=== PATIENT | female | born 1950 | race Caucasian/White ===

== ENCOUNTER 2021-05-25 13:10 | Emergency (ER) | payer MEDICARE, SELFPAY ==
--- NOTE | ~2021-05-25 | XR_ITS ---
EXAMINATION: XR chest 2V DATE: 05/25/2021 14:22 INDICATION: Mid chest pain for 8 days. TECHNIQUE: Frontal and lateral views of the chest were obtained. COMPARISON: Chest single view 09/05/2003 FINDINGS: Calcified bilateral lung nodules and calcified hilar lymph nodes are consistent with old gr anulomatous disease. No pleural effusion or pneumothorax. The heart size is normal. Median sternotomy wires and mediastinal surgical clips are seen, likely from prior coronary artery bypass grafting. Th ere is mild height loss of multiple midthoracic vertebral bodies, likely chronic. IMPRESSION: 1. No acute cardiopulmonary disease. Reviewed, dictated and finalized at location B. 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
[2021-05-25 13:20] VITALS: BP 123/78; PULSE 71; RESP 20; TEMP 36.7; O2SAT 99
--- NOTE | 2021-05-25 13:20 | ED.ABDPAIN ---
HPI - Abdominal Pain General Chief Complaint: Abdominal Pain Stated Complaint: Nausea/Abdominal Time Seen by Provider: 05/25/21 13:20 Source: patient and RN notes reviewed History of Present Illness HPI narrative: Patient is a 71-year-old female who presents the urgent care with her daughter with complaints of chest tightness. Patient states that she has been taking nitro which does seem to help her symptoms. Patient also reports of intermittent nausea. Patient has had a recent ablation as well as open heart surgery in the past. Patient states that she did call her PCP and they told her to specifically go to urgent care and not the emergency room . Patient is also reporting of shortness of breath with exertion. Denies of any upper respiratory complaints. Patient has had 2 negative COVID tests in the last week. States that symptoms started 8 days ago. Denies of any vomiting. No other acute complaints. No acute distress noted. Patient and daughter aware of the plan of care. Some parts of this dictation were generated by voice recognition software and may contain typographical and/or grammatical inaccuracies. Related Data Home Medications Medication Instructions Recorded Confirmed aspirin 81 mg PO DAILY 05/25/21 05/25/21 atorvastatin 40 mg PO DAILY 05/25/21 05/25/21 chlorthalidone 25 mg PO DAILY 05/25/21 05/25/21 ezetimibe 10 mg PO DAILY 05/25/21 05/25/21 metoprolol tartrate 25 mg PO DAILY 05/25/21 05/25/21 ranolazine 1,000 mg PO Q12H 05/25/21 05/25/21 venlafaxine 150 mg PO DAILY 05/25/21 05/25/21 Allergies Allergy/AdvReac Type Severity Reaction Status Date / Time codeine Allergy Hives Verified 05/25/21 13:33 Penicillins Allergy Hives Verified 05/25/21 13:33 Review of Systems Review of Systems: CONSTITUTIONAL: Denies fever, chills, or sweats. EYES: Denies visual changes, redness, or discharge. ENT: Denies rhinorrhea, congestion, sore throat, or otalgia. CARDIOVASCULAR: Reports of circumferential chest tightness RESPIRATORY: Reports of dyspnea on exertion GASTROINTESTINAL: Reports of nausea without abdominal pain, vomiting or diarrhea GENITOURINARY: Denies dysuria or hematuria. SKIN: Denies rash or itching. MUSCULOSKELETAL: Denies back pain, joint pain, or myalgia. NEUROLOGIC: Denies headache, numbness, or weakness. All other systems reviewed are negative, except as documented in HPI. PMFSH Comments At the time of my signature, I reviewed and agree with the nursing past medical, surgical, social, and family history. There is no relevant family history pertinent to the patient complaint. Exam Narrative: GENERAL: This is a well-nourished, well-developed patient, in no apparent distress. HEAD: normocephalic, atraumatic. EYES: PERRL. Sclera clear/white. Vision is grossly intact. EARS: External ears normal NOSE: External nose normal with no obvious nasal discharge, nares without redness, no rhinorrhea. THROAT: Mucous membranes moist NECK: Neck supple CARDIOVASCULAR: Regular rate and rhythm RESPIRATORY: Clear to auscultation. Breath sounds equal bilaterally. No wheezes, rales, or rhonchi. GASTROINTESTINAL: Abdomen soft, non-tender, nondistended. Bowel sounds are active. SKIN: warm, intact with no suspicious lesions or rash, good texture and turgor. NEURO: awake, alert, and oriented to person, place and time. There were no obvious focal neurologic abnormalities. EXTREMITIES: No clubbing, cyanosis, or edema. Course Course Level of Care: Express Care Visit Vital Signs Vital signs: Vital Signs Temperature 98.0 F 05/25/21 13:20 Pulse Rate 71 05/25/21 13:20 Respiratory Rate 05/25/21 13:20 Blood Pressure 123/78 05/25/21 13:20 Pulse Oximetry 99 05/25/21 13:20 Temperature 98.0 F 05/25/21 13:20 Pulse Rate 71 05/25/21 13:20 Respiratory Rate 05/25/21 13:20 Blood Pressure 123/78 05/25/21 13:20 Pulse Oximetry 99 05/25/21 13:20 Reviewed MDM - Abdominal Pain MDM Narrative
--- NOTE | 2021-05-25 13:36 | ECG_ITS ---
Measurements Intervals [place] Rate: 63 P: 52 AK: 195 QRS: 88 QRSD: 146 T: 33 QT: 478 QTc: 491 Interpretive Statements SINUS RHYTHM RIGHT BUNDLE BRANCH BLOCK BASELINE WANDER- I, II ABNORMAL ECG Electronically Signed On 05-25-2021 16:43:59 DISC PAD [employer] by Gelacio King D.O.
== END 2021-05-25 14:32 | disposition left against medical advice (07) ==
PROVIDERS: Emergency Provider Nurse Practitioner Family; PCP Internal Medicine
DX: R07.9 Chest pain, unspecified (principal); I45.10 Unspecified right bundle-branch block; Z95.1 Presence of aortocoronary bypass graft; E78.00 Pure hypercholesterolemia, unspecified; I10 Essential (primary) hypertension; F41.9 Anxiety disorder, unspecified; F32.A Depression, unspecified
CPT/HCPCS: 71046; 93005; 99213; G0463

== ENCOUNTER 2022-08-08 15:37 | Outpatient (CLI) | payer MEDICARE, SELFPAY ==
--- NOTE | ~2022-08-08 | XR_ITS ---
EXAMINATION: XR abdomen/kub 1V DATE: 08/08/2022 15:54 INDICATION: Left lower quadrant abdominal pain. TECHNIQUE: A supine view of the abdomen on 2 radiographs was obtained. COMPARISON: Abdomen radiographs 09/05/2003, CT abdomen and pelvis 12/09/2005 FINDINGS: There are no dilated loops of bowel. There is a moderate volume of stool in the colon. Ther e are phleboliths in the pelvis and in left ovarian vein. IMPRESSION: 1. Normal bowel gas pattern. Reviewed, dictated and finalized at location A.
== END 2022-08-08 15:38 | disposition home or self-care (01) ==
PROVIDERS: PCP Internal Medicine; Visit Provider Nurse Practitioner Family
DX: R10.32 Left lower quadrant pain (principal); R19.7 Diarrhea, unspecified
CPT/HCPCS: 74018

== ENCOUNTER 2022-09-02 00:21 | Day surgery (SDC) | payer MEDICARE, SELFPAY ==
[2022-08-29 13:11] VITALS: BMI 32.5
[2022-09-02 13:21] VITALS: BP 141/81; PULSE 83; RESP 18; TEMP 36.3; O2SAT 97; BMI 32.1
--- NOTE | 2022-09-02 13:28 | PM.HPGS ---
History of Present Illness History of Present Illness Consent: Risks, benefits, and alternatives have been discussed and questions answered. Patient agrees to proceed with procedure. Chief complaint: LLQP, hx colon polyps Narrative: Kelly Farris is a 72 year old female Who has been troubled with left lower quadrant pain since March.? states pain is constant with varying degrees of intensity.? Pain will radiate across the lower abdomen. Eating tends to make it worse, especially popcorn. Only mild improvement with BM. States bowels will alternate between constipation and diarrhea.? Here lately more diarrhea than constipation.? she may have 2 or 3 bouts of diarrhea a day and no bowel movement the next day. she denies any blood in the stools , fever or weight loss. CT scan at [place] in March 2022 that revealed a moderate amount of stool throughout the large colon extending into the rectosigmoid area, significant diverticulosis but no diverticulitis. She treats constipation with miralax as needed but hasnt taken any lately. Last colonoscopy in 6 years ago with polyps, she is due for screening colonoscopy. Review of Systems Review of Systems: All systems reviewed & are unremarkable except as noted in HPI and below PMFSH Past Medical History Medical History Colon polyps Depression Diarrhea Heart disease Hyperlipidemia Left lower quadrant abdominal pain Surgical History Surgical History H/O heart bypass surgery Family History Family History Mother Diabetes mellitus Acute myocardial infarction Father Lung cancer Grandparent Acute myocardial infarction Sibling Heart disease Social History Social History Smoking status: Never smoker Alcohol intake: never Substance use: never Substance use type: does not use Living arrangements: with family Additional living arrangements comments: daughter Occupation/Education: retired Gender identity (if verbalized by the patient): Female Sexual Orientation (if Verbalized by the Patient): Straight or Heterosexual Spiritual care concerns: No Meds Home Medications and Allergies Home Medications Medication Instructions Recorded Confirmed Type atorvastatin 40 mg tablet 40 mg PO DAILY 05/25/21 09/02/22 History chlorthalidone 25 mg tablet 25 mg PO DAILY 05/25/21 09/02/22 History ezetimibe 10 mg tablet 10 mg PO DAILY 05/25/21 09/02/22 History metoprolol tartrate 25 mg tablet 25 mg PO DAILY 05/25/21 09/02/22 History venlafaxine 150 mg 150 mg PO DAILY 05/25/21 09/02/22 History capsule,extended release 24 hr cyanocobalamin (vitamin B-12) 1,500 mcg PO DAILY 08/29/22 09/02/22 History 1,500 mcg tablet,extended release levothyroxine 50 mcg tablet 50 mcg PO DAILY 08/29/22 09/02/22 History nitroglycerin 0.4 mg sublingual 0.4 mg sublingual Q5-15M PRN Chest 08/29/22 09/02/22 History tablet Pain pantoprazole 40 mg tablet,delayed 40 mg PO DAILY 08/29/22 09/02/22 History release dicyclomine 20 mg tablet See Rx Instructions .Route 09/02/22 09/02/22 Rx .COMPLEX #90 tabs Allergies Allergy/AdvReac Type Severity Reaction Status Date / Time codeine Allergy Mild Hives Verified 09/02/22 13:19 Penicillins Allergy Mild Hives Verified 09/02/22 13:19 Vital Signs Vital Signs - 24 hr 09/02/22 13:21 Temperature 36.3 C L Pulse Rate 83 Respiratory Rate 18 Blood Pressure 141/81 H Pulse Oximetry 97 Oxygen Delivery Room Air Exam Const: General: alert Orientation/consciousness: patient oriented x3 Resp: Auscultation: clear to auscultation bilaterally Cardio: Rhythm: regular rhythm GI: GI Palp: Yes Soft to palpation and No Tenderness to palpation present (GI) Neuro: General: patient oriented x3 Assessment and Plan Assessment and plan
[2022-09-02] MEDS: LACTATED RINGERS 1,000 ML 150 ML IV CONT (13:30)
--- NOTE | 2022-09-02 13:51 | WPDANESEPPF ---
Anes - Initial Pre Proc Eval Procedure: Operation Date: 09/02/22 14:30 Proposed Procedures p Colonoscopy - Duc Osorio MD Date/Time: 09/02/22 13:51 Surgeon: Duc Osorio MD Pre Op Diagnosis: LLQP, hx colon polyps Patient Data Age: 72 Gender: F Height: 1.63 m Weight: 84.8 kg Last Vital Signs Temp 97.3 F L 09/02/22 13:21 Pulse 83 09/02/22 13:21 Resp 18 09/02/22 13:21 BP 141/81 H 09/02/22 13:21 Pulse Ox 97 09/02/22 13:21 O2 Del Method Room Air 09/02/22 13:21 Allergies Allergy/AdvReac Type Severity Reaction Status Date / Time codeine Allergy Mild Hives Verified 09/02/22 13:19 Penicillins Allergy Mild Hives Verified 09/02/22 13:19 Home Medications Medication Instructions Recorded Confirmed Type atorvastatin 40 mg tablet 40 mg PO DAILY 05/25/21 09/02/22 History chlorthalidone 25 mg tablet 25 mg PO DAILY 05/25/21 09/02/22 History ezetimibe 10 mg tablet 10 mg PO DAILY 05/25/21 09/02/22 History metoprolol tartrate 25 mg tablet 25 mg PO DAILY 05/25/21 09/02/22 History venlafaxine 150 mg 150 mg PO DAILY 05/25/21 09/02/22 History capsule,extended release 24 hr cyanocobalamin (vitamin B-12) 1,500 mcg PO DAILY 08/29/22 09/02/22 History 1,500 mcg tablet,extended release levothyroxine 50 mcg tablet 50 mcg PO DAILY 08/29/22 09/02/22 History nitroglycerin 0.4 mg sublingual 0.4 mg sublingual Q5-15M PRN Chest 08/29/22 09/02/22 History tablet Pain pantoprazole 40 mg tablet,delayed 40 mg PO DAILY 08/29/22 09/02/22 History release dicyclomine 20 mg tablet See Rx Instructions .Route 09/02/22 09/02/22 Rx .COMPLEX #90 tabs Patient hx anesthesia problems: none Family hx anesthesia problems: none Results Review: All pre-operative results and documents have been reviewed as part of the pre-operative evaluation. [facility] Past Medical History Medical History Colon polyps Depression Diarrhea Heart disease Hyperlipidemia Left lower quadrant abdominal pain Surgical History Surgical History H/O heart bypass surgery Family History Family History Mother Diabetes mellitus Acute myocardial infarction Father Lung cancer Grandparent Acute myocardial infarction Sibling Heart disease Social History Social History Smoking status: Never smoker Alcohol intake: never Substance use: never Substance use type: does not use Living arrangements: with family Additional living arrangements comments: daughter Occupation/Education: retired Gender identity (if verbalized by the patient): Female Sexual Orientation (if Verbalized by the Patient): Straight or Heterosexual Spiritual care concerns: No Anes - Eval Final PreProcedure Day of Procedure 09/02/22 13:51 Patient weight: obese Heart: regular rate and rhythm Lungs: clear to auscultation Airway: Mallampati scale Neurological: alert and oriented Last oral intake: >/= 8 hours ASA classification: III Emergent: no Anesthetic plan: proceed Anesthesia type and monitoring: general GIVS and standard monitoring Results Review: All pre-operative results and documents have been reviewed as part of the pre-operative evaluation. Informed Consent: The patient's anesthetic plan and its attendant risks and benefits were discussed with the patient/family/POA. Questions were solicited and answers provided to the satisfaction of the patient/family/POA.
[2022-09-02 14:22] VITALS: BP 123/78; PULSE 73; RESP 19; O2SAT 96
[2022-09-02 14:32] VITALS: BP 124/76; PULSE 69; RESP 21; O2SAT 94
[2022-09-02 14:42] VITALS: BP 128/73; PULSE 69; RESP 19; O2SAT 99
== END 2022-09-02 15:00 | disposition home or self-care (01) ==
PROVIDERS: PCP Internal Medicine; Visit Provider Internal Medicine Gastroenterology
PROC: 0DJD8ZZ Inspection of Lower Intestinal Tract, Via Natural or Artificial Opening Endoscopic (ICD-10-PCS; CPT 45378; principal; 2022-09-02 14:30)
DX: Z12.11 Encounter for screening for malignant neoplasm of colon (principal); R19.4 Change in bowel habit; K57.30 Diverticulosis of large intestine without perforation or abscess without bleeding; R10.32 Left lower quadrant pain; Z86.010 Personal history of colon polyps; I51.9 Heart disease, unspecified; E78.5 Hyperlipidemia, unspecified; F32.A Depression, unspecified; Z95.1 Presence of aortocoronary bypass graft; E66.9 Obesity, unspecified; Z68.32 Body mass index [BMI] 32.0-32.9, adult
CPT/HCPCS: G0105; J2704; J7120

== ENCOUNTER 2022-09-06 15:21 | Emergency (ER) | payer MEDICARE, SELFPAY ==
--- NOTE | ~2022-09-06 | XR_ITS ---
EXAMINATION: XR elbow RT min 3V INDICATION: Right elbow pain TECHNIQUE: Four views of the right elbow were obtained. COMPARISON: None available FINDINGS: No fracture, dislocation, or subluxation. The bones, soft tissues, and joint spaces are nor mal. IMPRESSION: 1. No acute osseous abnormality. Reviewed, dictated and finalized at location L.
[2022-09-06 15:30] VITALS: BP 125/69; PULSE 81; RESP 16; TEMP 36.7; O2SAT 97
--- NOTE | 2022-09-06 15:51 | ED.UPPEXIN ---
HPI - Extremity Injury (Upper) General Chief Complaint: Extremity Injury, Upper Stated Complaint: Fall Injury/Right Arm Time Seen by Provider: 09/06/22 15:22 Source: patient and RN notes reviewed History of Present Illness HPI narrative: Patient is a 72-year-old female who presents to urgent care with complaints of right elbow pain after tripping over a dog gate today. Patient states it happened approximately 1 hour ago. Denies any other injuries, loss of consciousness or hitting her head. No acute distress noted. Patient aware of the plan of care. Some parts of this dictation were generated by voice recognition software and may contain typographical and/or grammatical inaccuracies. Related Data Home Medications Medication Instructions Recorded Confirmed atorvastatin 40 mg tablet 40 mg PO DAILY 05/25/21 09/02/22 chlorthalidone 25 mg tablet 25 mg PO DAILY 05/25/21 09/02/22 ezetimibe 10 mg tablet 10 mg PO DAILY 05/25/21 09/02/22 metoprolol tartrate 25 mg tablet 25 mg PO DAILY 05/25/21 09/02/22 venlafaxine 150 mg 150 mg PO DAILY 05/25/21 09/02/22 capsule,extended release 24 hr cyanocobalamin (vitamin B-12) 1,500 mcg PO DAILY 08/29/22 09/02/22 1,500 mcg tablet,extended release levothyroxine 50 mcg tablet 50 mcg PO DAILY 08/29/22 09/02/22 nitroglycerin 0.4 mg sublingual 0.4 mg sublingual Q5-15M PRN Chest 08/29/22 09/02/22 tablet Pain pantoprazole 40 mg tablet,delayed 40 mg PO DAILY 08/29/22 09/02/22 release Allergies Allergy/AdvReac Type Severity Reaction Status Date / Time codeine Allergy Mild Hives Verified 09/02/22 13:19 Penicillins Allergy Mild Hives Verified 09/02/22 13:19 Review of Systems Review of Systems: CONSTITUTIONAL: Denies fever, chills, or sweats. EYES: Denies visual changes, redness, or discharge. ENT: Denies rhinorrhea, congestion, sore throat, or otalgia. CARDIOVASCULAR: Denies chest pain, palpitations, or edema. RESPIRATORY: Denies cough or dyspnea. GASTROINTESTINAL: Denies abdominal pain, nausea, vomiting, or diarrhea. GENITOURINARY: Denies dysuria or hematuria. SKIN: Denies rash or itching. MUSCULOSKELETAL: Reports of right elbow pain NEUROLOGIC: Denies headache, numbness, or weakness. All other systems reviewed are negative, except as documented in HPI. [facility] Past Medical History Medical History Colon polyps Depression Diarrhea Heart disease Hyperlipidemia Left lower quadrant abdominal pain Surgical History Surgical History H/O heart bypass surgery Family History Family History Mother Diabetes mellitus Acute myocardial infarction Father Lung cancer Grandparent Acute myocardial infarction Sibling Heart disease Social History Social History Smoking status: Never smoker Alcohol intake: never Substance use: never Substance use type: does not use Living arrangements: with family Additional living arrangements comments: daughter Occupation/Education: retired Gender identity (if verbalized by the patient): Female Sexual Orientation (if Verbalized by the Patient): Straight or Heterosexual Spiritual care concerns: No Comments At the time of my signature, I reviewed and agree with the nursing past medical, surgical, social, and family history. There is no relevant family history pertinent to the patient complaint. Exam Narrative: GENERAL: This is a well-nourished, well-developed patient, in no apparent distress. HEAD: normocephalic, atraumatic. EYES: PERRL. Sclera clear/white. Vision is grossly intact. EARS: External ears normal NOSE: External nose normal with no obvious nasal discharge, nares without redness, no rhinorrhea. THROAT: Mucous membranes moist NECK: Neck supple SKIN: warm, intact with no suspicious lesions or rash, good textu
== END 2022-09-06 16:04 | disposition home or self-care (01) ==
PROVIDERS: Emergency Provider Nurse Practitioner Family; PCP Internal Medicine
DX: M25.521 Pain in right elbow (principal); E78.5 Hyperlipidemia, unspecified; F32.A Depression, unspecified; Z95.1 Presence of aortocoronary bypass graft
CPT/HCPCS: 73080; 99213; G0463

== ENCOUNTER 2023-02-06 12:30 | Emergency (ER) | payer MEDICARE, SELFPAY ==
[2023-02-06 12:38] VITALS: BP 116/74; PULSE 86; RESP 20; TEMP 36.3; O2SAT 96
[2023-02-06 12:47] VITALS: BP 116/74; PULSE 86; RESP 20; TEMP 36.3; O2SAT 96
--- NOTE | 2023-02-06 12:59 | ED.SKABFB ---
HPI - Skin/Abscess/Foreign Bdy General Chief complaint: Skin/Abscess/Foreign Body Stated complaint: poison ravi/sumac Time Seen by Provider: 02/06/23 13:00 Source: patient, RN notes reviewed and old records reviewed Mode of arrival: ambulatory Limitations: no limitations History of Present Illness HPI narrative: 72-year-old female presents to the [facility] with complaints of a rash. Had been clearing brush for her granddaughter's wedding at house, developed this rash on Monday Related Data Home Medications Medication Instructions Recorded Confirmed chlorthalidone 25 mg tablet 25 mg PO DAILY 05/25/21 02/06/23 ezetimibe 10 mg tablet 10 mg PO DAILY 05/25/21 02/06/23 metoprolol tartrate 25 mg tablet 25 mg PO DAILY 05/25/21 02/06/23 venlafaxine 150 mg 150 mg PO DAILY 05/25/21 02/06/23 capsule,extended release 24 hr levothyroxine 50 mcg tablet 50 mcg PO DAILY 08/29/22 02/06/23 nitroglycerin 0.4 mg sublingual 0.4 mg sublingual Q5-15M PRN Chest 08/29/22 02/06/23 tablet Pain pantoprazole 40 mg tablet,delayed 40 mg PO DAILY 08/29/22 02/06/23 release atorvastatin 80 mg tablet 80 mg PO DAILY 02/06/23 02/06/23 cholecalciferol (vitamin D3) 1,250 1,250 mcg PO WEEKLY 02/06/23 02/06/23 mcg (50,000 unit) capsule cyanocobalamin (vitamin B-12) 1,000 mcg PO DAILY 02/06/23 02/06/23 1,000 mcg tablet cyanocobalamin (vitamin B-12) 500 500 mcg PO DAILY 02/06/23 02/06/23 mcg tablet dicyclomine 20 mg tablet 20 mg PO TID 02/06/23 02/06/23 Allergies Allergy/AdvReac Type Severity Reaction Status Date / Time codeine Allergy Mild Hives Verified 02/06/23 12:41 Penicillins Allergy Mild Hives Verified 02/06/23 12:41 Review of Systems Review of Systems: All systems reviewed & are unremarkable except as noted in HPI and below Constitutional: Constitutional: Reports no additional constitutional complaints Eyes: Eyes: Reports no additional eye complaints ENT: Reports system reviewed and no additional complaints, except as documented Cardiovascular: Cardiovascular: Reports no additional cardiovascular complaints, Denies chest pain and Denies dyspnea Respiratory: Respiratory: Reports no additional respiratory complaints, Denies chest congestion, Denies cough and Denies dyspnea Gastrointestinal: Gastrointestinal: Reports no additional gastrointestinal complaints, Denies abdominal pain, Denies nausea and Denies vomiting Musculoskeletal: Musculoskeletal: Reports no additional musculoskeletal complaints Integumentary/Breasts: Skin/Breast: Reports as per HPI Neurologic: Reports system reviewed and no additional complaints, except as documented Psychiatric: Psychiatric: Reports no additional psychiatric complaints Allergic/Immunologic: Allergic/Immunologic: Reports no additional allergic/immunologic complaints [facility] Past Medical History Medical History Colon polyps Depression Diarrhea Heart disease Hyperlipidemia Left lower quadrant abdominal pain Surgical History Surgical History H/O heart bypass surgery Family History Family History Mother Diabetes mellitus Acute myocardial infarction Father Lung cancer Grandparent Acute myocardial infarction Sibling Heart disease Social History Social History Smoking status: Never smoker Alcohol intake: never Substance use: never Substance use type: does not use Living arrangements: with family Additional living arrangements comments: daughter Occupation/Education: retired Gender identity (if verbalized by the patient): Female Sexual Orientation (if Verbalized by the Patient): Straight or Heterosexual Spiritual care concerns: No Comments At the time of my signature, I reviewed and agree with the nursing past medical, surgical, social, and family
== END 2023-02-06 13:10 | disposition home or self-care (01) ==
PROVIDERS: Emergency Provider Nurse Practitioner
DX: L23.7 Allergic contact dermatitis due to plants, except food (principal); E78.5 Hyperlipidemia, unspecified; Z79.899 Other long term (current) drug therapy
CPT/HCPCS: 99213; G0463

== ENCOUNTER 2023-09-06 16:01 | Outpatient (CLI) | payer MEDICARE, SELFPAY ==
--- NOTE | ~2023-09-06 | CT_ITS ---
EXAMINATION: CT abdomen pelvis w con DATE: 09/06/2023 16:23 INDICATION: Abdominal pain TECHNIQUE: Computed tomography (CT) of the abdomen and pelvis was performed with 100 cc Omnipaque 350 intravenous contrast. The dose-length product was 1087.97 mGy-cm. Automated exposure control and ite rative reconstruction technique were employed. COMPARISON: CT dated 12/09/2005. FINDINGS: There is dependent atelectasis. Heart size is normal. Calcified granuloma right lower lobe. Fatty infiltration of the liver. Status post cholecystectomy with expected prominence of the bile du cts. There are calcified granulomas of the spleen. The pancreas, adrenal glands and kidneys are unrem arkable. Nonobstructive bowel gas pattern. Colonic diverticulosis. Minimal stranding surrounding the sigmoid colon. Cannot exclude mild acute diverticulitis. Normal appendix. No free air or free fluid. No abscess. IMPRESSION: 1. Colonic diverticulosis with mild stranding surrounding the sigmoid colon, suspicious for diverticu litis. Reviewed, dictated and finalized at location B. IMPRESSION: 1. Colonic diverticulosis with mild stranding surrounding the sigmoid colon, valencia spicious for diverticulitis.
[2023-09-06 16:17] LABS: Estimated Glomerular Filt Rate > 60
== END 2023-09-06 16:02 | disposition home or self-care (01) ==
LOC: ANHIMG 16:02
PROVIDERS: Visit Provider Internal Medicine
DX: K57.30 Diverticulosis of large intestine without perforation or abscess without bleeding (principal)
CPT/HCPCS: 74177; Q9967

== ENCOUNTER 2024-07-29 14:14 | Outpatient (CLI) | payer MEDICARE, SELFPAY ==
[2024-07-29 14:27] LABS: Basophils Absolute Auto 0.1 K/mm3 (0.0-0.1); Basophils Percent Auto 1.1 % (0.2-1.2); Eosinophils Absolute Auto 0.1 K/mm3 (0-0.3); Eosinophils Percent Auto 1.6 % (0-4.4); Hemoglobin 15.4 g/dL (12.0-15.0); Immature Granulocyte Absolute 0.02 K/mm3 (0.00-0.031); Immature Granulocyte Percent A 0.2 % (0-0.5); Lymphocytes Absolute Auto 2.72 K/mm3 (0.9-3.2); Lymphocytes Percent Auto 32.7 % (18.3-44.2); Mean Corpuscular HGB Conc 34.2 g/dl (32-36); Mean Corpuscular Volume 87.7 fl (80-100); Mean Platelet Volume 9.2 fl (7.4-10.4); Monocytes Absolute Auto 0.5 K/mm3 (0.1-0.6); Monocytes Percent Auto 6.5 % (2.6-8.5); Neutrophils Absolute Auto 4.8 K/mm3 (1.3-6.7); Neutrophils Percent Auto 57.9 % (45.5-73.1); Platelet Count Result 361 k/mm3 (150-375); Red Blood Count 5.13 M/mm3 (4.2-5.4); Red Cell Distribution Width 13.4 % (11.5-14.5); White Blood Count 8.3 K/mm3 (4.5-10.0)
[2024-07-29 16:47] LABS: Alanine Aminotransferase 27 U/L (6-35); Albumin Level 4.7 g/dL (3.5-5.1); Alkaline Phosphatase 129 U/L (38-126); Anion Gap 10 mmol/L (4-12); Aspartate Amino Transferase 48 U/L (14-36); Bilirubin,Total 2.1 mg/dL (0.2-1.3); Blood Urea Nitrogen 11 mg/dL (7-17); CRP < 0.5 mg/dL (<1.0); Calcium 9.8 mg/dL (8.4-10.2); Carbon Dioxide 32 mmol/L (22-30); Chloride 98 mmol/L (98-107); Estimated Glomerular Filt Rate > 60; Glucose 107 mg/dL (65-110); Potassium 3.1 mmol/L (3.4-5.0); Sodium 140 mmol/L (137-145)
--- OUTSIDE RECORDS SUMMARY | 2024-07-29 16:50 | XMS_ITS | Continuity of Care Document ---
Author Organization 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 Plasma Arc Name Role Phone Miguel A FRANCO, Tony Unavailable Unavailable Allergies, Adverse Reactions, Alerts Substance Reaction Status Criticality Penicillins hives(severe) Active No Information codeine hives(severe) Active No Information Penicillins Active No Information codeine Active No Information Medications Medication Instructions Dosage Effective Dates (start - stop) Status Comments venlafaxine ER 150 mg capsule,extended release 24 hr take 1 Capsule by ORAL route every day morning 150 MG - Active hydrochlorothiazide 25 mg tablet take 1 tablet by oral route every day 25 MG - Active Klor-Con 10 mEq tablet,extended release take 1 Tablet by ORAL route every day with food 10 MEQ - Active Vitamin D3 2,000 unit tablet take 1 by Oral route every day 1 - Active lisinopril 10 mg tablet take 1 tablet by oral route every day 10 MG - Active Lipitor 10 mg tablet take 1 tablet by oral route every day 10 MG - Active Procedures Procedure Date Payment Collected Sacroiliac Joint Injection _ASC 013 Sciatic/Piriformis Nerve Inj Sacroiliac Joint, Arthrography/Anestheti c, W/ Fluoro Sciatic/Piriformis Nerve Inj Payment Collected Sacroiliac Joint Injection _ASC 013 Sciatic/Piriformis Nerve Inj Sacroiliac Joint, Arthrography/Anestheti c, W/ Fluoro Sciatic/Piriformis Nerve Inj Follow-up, Detailed L/S First Level Transforaminal, (Fluoro Inc) L/S Add'l Level Transforaminal (Fluoro I nc) L/S First Level Transforaminal, ([employer]oro [employer].) L/S Add'l Level Transforaminal (Flouro I nc) Sacroiliac Joint Injection _ASC 013 Sciatic/Piriformis Nerve Inj Sacroiliac Joint, Arthrography/Anestheti c, W/ Fluoro Sciatic/Piriformis Nerve Inj Office/outpatient visit,est, mod 2012 Payment Collected L/S First Level Transforaminal, ([employer]) L/S Add'l Level Transforaminal (Fluoro I nc) L/S First Level Transforaminal, ([employer].) L/S Add'l Level Transforaminal (Flouro I nc) L/S First Level Transforaminal, ([employer]) L/S Add'l Level Transforaminal (Fluoro I nc) L/S First Level Transforaminal, ([employer].) L/S Add'l Level Transforaminal (Flouro I nc) Drug screen, qual, single class 013 Follow-up, Detailed Advance Directives Directive Yes / No Effective Date File Name No Information Encounters Encounter Description Practice Location Reason(s) For Visit Diagnoses Date Provider Providers Copied on Encounter [facility], [address] [facility] [address], [place], [place], [id number], [place] tel:[phone] [facility] No Information 4 Miguel A Jimenez. [address] [facility], [address], [place], [place], [address] . tel: [phone] [facility], [address] [facility] [address], [place], [place], [address], [place] tel:[phone] [facility] Office No Information 3 Miguel A Jimenez. [address] [place] [address] [address], [place], [place], [address] . tel: [phone] Referring Provider: Tony Hernández, [address] [place] [address] [address], [place], [place], [address]. tel:[phone] [facility], [address] [place] [address] 100, [place], [place], [address], [place] tel:[phone] [facility] SACROILIITIS; Sacroiliac PainLumbar Thoracic Radicular Pain 3 Miguel A Jimenez. [address] [place] [address], [facility] [address], [place], [place], [address] . tel: [phone] Referring Provider: Tony Hernández, [address] [place] [address] [address], [place], [place], [address]. tel:[phone] [facility], [address] [place] [address], [place], [address], [place] tel:[phone] [facility] Office No Information 3 Miguel A Jimenez. [address] [place] [address] [address], [place], [place], [address] . tel: [phone] Referring Provider: Tony Hernández, [address] [place] [address] [address], [place], [address]. tel:[phone] [facility], [address] [place] [address] 200, [place], [address], [place] tel:[phone] [facility] Office No Information 3 Miguel A Jimenez. [address] [place] [address] [address], [place], [place], [address] . tel: [phone] Referring Provider: Tony Hernández, [address] [place] [address] [address], [place], [address]. tel:[phone] [facility], [address] [place] [address], [address], [place] tel:[phone] [facility] SACROILIITIS; Sacroiliac PainLumbosacral Thoracic Radicular Pain, NOS Oct-0 2-201 3 Miguel A Jimenez. [address] [place] [address] 200, [place], [place], [address] . tel: [phone] Referring Provider: Tony Hernández, [address] [place] [address] 200, [place], [place], [address]. tel:[phone] [facility], [address] [place] [address], [address], [place] tel:[phone] [facility] Office No Information Oct-0 2-201 3 Miguel A Jimenez. [address] [place] [address] 200, [place], [place], [address] . tel: [phone] Referring Provider: Tony Hernández, [address] [place] [address] 200, [place], [place], [address]. tel:[phone] Follow-up, Detailed [facility], [address] [place] [address] 200, [place], [address], [place] tel:[phone] [facility] Office back pain (chief complaint) left leg pain (chief complaint) SACROILIITIS; Sacroiliac PainLumbosacral Thoracic Radicular Pain, NOS Sep-2 7-201 3 Miguel A Jimenez. [address] [place] [address] [address], [place], [address] . tel: [phone] Referring Provider: Tony Hernández, [address] [place] [address] [address], [place], [place], [address]. tel:[phone] [facility], [address] [place] [address] 100, [place], [address], [place] tel:[phone] [facility] Lumbosacral Thoracic Radicular Pain, NOS Sep-1 2-201 3 Miguel A Jimenez. [address] [place] [address] 200, [place], [place], [address] . tel: [phone] Referring Provider: Tony Hernández, [address] [place] [address] [address], [place], [place], [address]. tel:[phone] [facility], [address] [place] [address] 200, [place], [address], [place] tel:[phone] [facility] Office No Information 3 Miguel A Jimenez. [address] [place] [address] [address], [place], [place], [address] . tel: [phone] Referring Provider: Tony Hernández, [address] [place] [address] 200, [place], [address]. tel:[phone] [facility], [address] [place] [address] 100, [place], [address], [place] tel:[phone] [facility] SACROILIITIS; Sacroiliac PainLumbosacral Thoracic Radicular Pain, NOS 3 Miguel A Jimenez. [address] [place] [address] [address], [place], [place], [address] . tel: [phone] Referring Provider: Tony Hernández, [address] [place] [address] [address], [place], [place], [address]. tel:[phone] [facility], [address] [place] [address] 200, [place], [address], [place] tel:[phone] [facility] Office No Information 3 Miguel A Jimenez. [address] [place] [address] [address], [place], [address] . tel: [phone] Referring Provider: Tony Hernández, [address] [place] [address] [address], [place], [address]. tel:[phone] Office/outpa tient visit,est, mod [facility], [address] [place] [address] 200, [place], [address], [place] tel:[phone] [facility] Office back pain (chief complaint) left leg pain (chief complaint) SACROILIITIS; Sacroiliac PainLumbosacral Thoracic Radicular Pain, NOSSCIATICA 3 Miguel A Jimenez. [address] [place] [address], [address], [place], [address] . tel: [phone] Referring Provider: Tony Hernández, [address] [place] [address] [address], [place], [address]. tel:[phone] [facility], [address] [place] [address], [id number], [place] tel:[phone] [facility] Office No Information - 3 Miguel A Jimenez. [address] [place] [address], [address], [place], [address] . tel: [phone] Referring Provider: Tony Hernández, [address] [place] [address] [address], [place], [place], [address]. tel:[phone] [facility], [address] [place] [address], [address], [place] tel:[phone] [facility] Lumbosacral Thoracic Radicular Pain, NOS 2-201 3 Miguel A Jimenez. [address] [place] [address], [address], [place], [place], [address] . tel: [phone] Referring Provider: Tony Hernández, [address] [place] [address] [address], [place], [address]. tel:[phone] [facility], [address] [place] [address], [address], [place] tel:[phone] [facility] Office No Information 3 Miguel A Jimenez. [address] [place] [address], [address], [place], [address] . tel: [phone] Referring Provider: Tony Hernández, [address] [place] [address] [address], [place], [address]. tel:[phone] [facility], [address] [place] [address], [address], [place] tel:[phone] [facility] Lumbosacral Thoracic Radicular Pain, NOS Nov- 6-201 3 Miguel A Jimenez. [address] [place] [address], [address], [place], [address] . tel: [phone] Referring Provider: Tony Hernández, [address] [place] [address] [address], [place], [address]. tel:[phone] [facility], [address] [place] [address], [id number], [place] tel:[phone] [facility] Office No Information 3 Miguel A Jimenez. [address] [place] [address], [address] . tel: [phone] Referring Provider: Tony Hernández, [address] [place] [address] 200, [place], [address]. tel:[phone] Follow-up, Detailed [facility], [address] [place] [address], [id number], [place] tel:[phone] [facility] Office low back pain (chief complaint) leg pain (chief complaint) Lumbosacral Thoracic Radicular Pain, NOSSACROILIITIS ; Sacroiliac PainSCOLIOSIS 3 Miguel A Jimenez. [address] [place] [address], [address] . tel: [phone] Referring Provider: Tony Hernández, [address] [place] [address] 200, [place], [place], [address]. tel:[phone] [facility], [address] [place] [address], [id number], [place] tel:[phone] [facility] Office No Information 3 Miguel A Jimenez. [address] [place] [address], [place], [address] . tel: [phone] [facility], [address] [place] [address], [address], [place] tel:[phone] [facility] DepressionHyper tension, BenignHYPERLIPI DEMIA NEC/NOS 3 Migue lA Jimenez. [address] [place] [address], [place], [address] . tel: [phone] WARNING: Some information has been stripped due to its sensitive nature Family History Family Member Type Diagnosis Age At Onset Father Problem (finding) Cancer, lung (Cause Of ) Mother Problem (finding) Diabetes & heart diseas e 72 Father Problem (finding) Payers Payer name Insurance type Covered libertarian ID Jacobo dsouza(s) BC[facility] [id number] Social History Type Description Quantity Date Captured Comments Sex Female Smoking Status No Information Chief Complaint And Reason For Visit No Information Plan Of Treatment Date Type Action Status No Information History Of Present Illness Encounter Date Complaint History Of Prese nt Illness left leg pain It occurs consta ntly. Location: left. The pain is aching. Context: there is no injury. The pain is aggravated by walking and standing. The pain is relieved by injection. back pain Onset: 9 months ago. Duration: 24 Hours. The problem is stable. It occurs persistently. Location of pain is gluteal area. The patient describes the pain as throbbing. left leg pain Onset: 8 months ago. Duration: varies. Location: left upper leg. The pain radiates to the left buttock. The pain is aching and shooting. The pain is aggravated by walking. The pain is relieved by OTC medicines (naproxen sodium). back pain (comments) LBP somewha t better, mainly leg pain to foot, every step hurts. Not stiff in am. back pain Onset: 8 months ago. Duration: daytime. The problem is improving. It occurs intermittently. Location of pain is lower back, gluteal area and left flank. Pain is radiated to the left thigh. The patient describes the pain as an ache. Symptoms are aggravated by standing. Instructions Date Instruction Antonietta tran Instructed Swarm Patient Educati on Related to SACROILIITIS; Sacroiliac Pain Assessments Type Assessment Date No Information
--- OUTSIDE RECORDS SUMMARY | 2024-07-29 16:51 | XMS_ITS | Encounter Summary ---
Author Organization [facility] [address] Hern[facility] [facility] Address [address] [place] [address] Care Team Providers Care Skip Hoist Operator Name Role Phone Unavailable Primary Care Provider Unavailabl e Encounter Details Date Type Department Care Team ([facility] Contact Info) Description 07/29/2024 Abstract [facility] Oncology and Hematology [facility] Juan Phillips [address] [place] [address] Joe Bland MD [address] [place] [address] [facility] [address] [place] [address] Social History Tobacco Use Types Packs/Day Years Used Date Smoking Tobacco: Never Smokeless Tobacco: Never Alcohol Use Standard Drinks/Week Comments Never 0 (1 standard drink = 0.6 oz pur e alcohol) Comments Unknown Sex and Gender Information Value Date Recorded Sex Assigned at Not on file 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
--- OUTSIDE RECORDS SUMMARY | 2024-07-29 16:51 | XMS_ITS | Referral Summary ---
Author Organization [facility] Address [address] [facility] [place] [address] Care Team Providers Care Chronometer Assembler Name Role Phone Chris Oseguera MD Primary Care Provider Source Comments [facility],non-owned Affiliates and Associated Physician Practices is amultiple site organization consisting of ambulatory clinics and hospital sitesin [place], [place], [place] and [place]. This disclosure is being madepursuant to the Care Everywhere program and may not contain all information available regarding this patient. Last updated 18.[facility] Allergies Active Allergy Reactions Criticality Noted Date Comments Codeine Urticaria,Other,Unkn o wn,Vomiting High 10/24/2012 Reaction: Hives, GI upset, Penicillins Other,Nausea and/or Vomiting,Unknown,Vomi ting High 10/24/2012 Reaction: Hives, GI upset, Phenylpropanolamine- Aspirin Palpitations Low 02/18/2023 Patient states she gets heart palpitations with any kind of Camila-seltzer medications. Medications * Be aware that medications may not be up to date on this document. Alwaysverify current medications with the patient. Medication Sig Dispensed Refills Start Date End Date Status venlafaxine XR 24hr (Effexor XR) 150 MG capsule 06/30/2022 Active chlorthalidone (Hygroton) 25 MG tablet Take 1 (one) tablet by mouth once daily 1/2 tablet 05/24/2022 Active metoprolol succinate XL 24hr (Toprol XL) 25 MG tablet Take 1 (one) tablet by mouth once daily 12/01/2021 Active nitroGLYCERIN (Nitrostat) 0.4 MG tablet Dissolve 1 (one) tablet under the tongue Active pantoprazole EC (Protonix) 40 MG tablet TAKE 1 TABLET BY MOUTH EVERY DAY NEEDED FOR 90 DAYS 05/05/2022 Active escitalopram (Lexapro) 10 MG tablet Take 1 (one) tablet by mouth once daily Active Cholecalciferol (vitamin D3) 1.25 MG (83948 UT) capsule TAKE 1 CAPSULE BY MOUTH ONE TIME PER WEEK 01/09/2023 Active vitamin D, ergocalciferol, (Drisdol) 1.25 MG (50429 UT) capsule TAKE 1 CAPSULE EVERY WEEK BY ORAL ROUTE. 10/05/2021 Active levothyroxine (Synthroid) 50 MCG tablet 02/11/2023 Active MAGNESIUM CITRATE PO Active Turmeric, Curcuma Longa, Active oxyCODONE (Oxy-Ir) 5 MG capsuleIndications :Macromastia Take 1 (one) capsule by mouth every 6 hours as needed for Pain 15 capsule 02/28/2023 Active Additional Information Patient not taking.Reported on 04/12/2023 ondansetron (Zofran) 4 MG tablet Take 1 (one) tablet by mouth every 6 hours as needed for Nausea/Vomiting 5 tablet 02/28/2023 Active Additional Information Patient not taking.Reported on 04/12/2023 aspirin (Aspirin) 81 MG chew tablet Take 1 (one) tablet by mouth once daily Active atorvastatin (Lipitor) 20 MG tablet Take 2 (two) tablets by mouth once daily Active cephalexin (Keflex) 500 MG capsule TAKE 1 CAPSULE (500 MG TOTAL) BY MOUTH 4 TIMES A DAY FOR 2 DAYS 02/19/2023 Active Cholecalciferol 1.25 MG (57656 UT) Take 50,000 Units by mouth 01/09/2023 Active ciprofloxacin (Cipro) 500 MG tablet Take 1 (one) tablet by mouth 02/09/2022 Active dicyclomine (Bentyl) 20 MG tablet TAKE 1 TABLET BY MOUTH THREE TIMES A DAY FOR 1 MONTH 12/30/2022 Active fenofibrate (Lofibra) 160 MG tablet Take 1 (one) tablet by mouth once daily Active pantoprazole EC (Protonix) 40 MG tablet Take 1 (one) tablet by mouth once daily as needed 12/19/2022 Active predniSONE (Deltasone) 20 MG tablet TAKE 2 TABLETS BY MOUTH DAILY FOR 5 DAYS AND 1 TAB DAILY FOR 5 DAYS 02/06/2023 Active Social History Tobacco Use Types Packs/Day Years Used Date Smoking Tobacco: Never Smokeless Tobacco: Never Tobacco Cessation:Counseling Given: Not Answered Alcohol Use Standard Drinks/Week Comments Not Currently 0 (1 standard drink = 0.6 oz pur e alcohol) Sex and Gender Information Value Date Recorded Sex Assigned at Female 08/07/2022 9:20 PM CDT Gender Identity Female 08/07/2022 9:20 PM CDT Sexual Orientation Straight 08/07/2022 9: 20 PM CDT Last Filed Vital Signs Vital Sign Reading Time Taken Comments Blood Pressure 128/72 04/12/2023 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 No 02/28/2023 Is person blind or have seri ous difficulty seeing? No 02/28/2023 Does person have serious dif ficulty walking/climbing stairs? Yes-due to anesthia 02/28/2023 Does person have difficulty dressing/bathing? No 02/28/2023 Does person have difficulty doing errands alone? No 02/28/2023 Cognitive Status Response Date of Assessm ent Does person have difficulty concentrating/remembering/making decisions? No 02/28/2023 Plan of Treatment Not on file Care Teams Chronometer Assembler Relationship Specialty Start Date End Date Chris Oseguera MD [address] [address] PCP - General 04/20/22
--- OUTSIDE RECORDS SUMMARY | 2024-07-29 16:51 | XMS_ITS | Clinical Summary ---
Author Organization [facility] Address [address] [place] [address] Care Team Providers Care Warehouse Delivery Driver Name Role Phone Ashish Paulino MD Primary Care Provider [phone] Allergies Active Allergy Reactions Criticality Noted Date Comments Codeine Hives,Nausea Only,Vomiting 3 Penicillins Nausea Only,Vomiting Low 10/24/2012 Statins Rash,Headache Low 12/05/2018 Medications aspirin 81 MG chewable tablet Chew 81 mg by mouth daily. Active nitroglycerin 0.[address] 0.4 mg under the tongue every 5 (five) minutes as needed for Chest Pain. Active ranolazine ER 1000 MG TABLET SR 12 HR 12 hr tablet Take 1 tablet by mouth daily. 0 Active metoprolol succinate ER 25 MG 24 hr tablet Take 25 mg by mouth daily. 0 Active ezetimibe 10 MG tablet Take 10 mg by mouth daily. 0 Active atorvastatin 40 MG tablet Take 40 mg by mouth daily. 0 Active azelastine 0.1 % nasal sprayIndications:Rh inorrhea 1-2 sprays per nostril, once or twice daily. 30 mL 0 Active fenofibrate 160 MG tabletIndications:M ixed hyperlipidemia Take 1 tablet (160 mg total) by mouth daily. 90 tablet 1 Active venlafaxine XR 150 MG 24 hr capsuleIndications: Depression, unspecified depression type Take 1 capsule (150 mg total) by mouth daily. 90 capsule 1 Active chlorthalidone 25 MG tabletIndications:E ssential hypertension Take 0.5 tablets (12.5 mg total) by mouth daily. 45 tablet 1 Active Active Problems Problem Noted Date Diagnosed Date Prediabetes 06/05/2019 Migraine without aura and wi thout status migrainosus, not intractable 02/07/2019 BMI 30.0-30.9,adult 01/01/2019 Coronary artery disease of b ypass graft of [place] heart with stable angina pectoris 12/05/2018 Assessment & Plan (01/01/2019 4:51 PM CDT): Though patient denies chest pain, symptoms suggestive of anginal equivalent. Prefers to see a non-[facility] provider for cardiology. Patient not sure whether referral is necessary. Will call us if needed. Encouraged to set up appointment with them josias. Should her symptoms worsen or new symptoms develop, seek evaluation in the Emergency Department. No treatment change. S/P 2-vessel coronary artery bypass 12/05/2018 Overview (12/05/2018): [id number] Jesus Nuno MD, [place], [place]. Assessment & Plan (01/01/2019 4:55 PM CDT): See coronary artery disease, above. Medication management 08/18/2015 Overview (12/05/2018): Transitioned From: senior living use of drug Assessment & Plan (01/01/2019 4:55 PM CDT): Checking routine labs today (see orders) for ongoing medication monitoring. Mixed hyperlipidemia 05/19/2015 Assessment & Plan (01/01/2019 4:54 PM CDT): Patient denies any symptoms related to atorvastatin. Continue current treatment. Check fasting lipid panel at her earliest convenience. Essential hypertension 10/24/2012 Overview (05/01/2020): Description: 04/18/2009 Assessment & Plan (01/01/2019 4:52 PM CDT): Well controlled. 1. Medication: continue current medication regimen unchanged, encouraged home monitoring, call for persistent elevations at or above 130/85. 2. Dietary sodium restriction - DASH diet handout 3. Regular aerobic exercise - following evaluation by cardiology. 4. Recheck in 6 months, sooner should new symptoms or problems arise. Hearing loss 10/24/2012 Overview (12/05/2018): Description: USES AIDES Depression 10/24/2012 Assessment & Plan (01/01/2019 4:54 PM CDT): Continues on venlafaxine without difficulties, and with reasonable control of symptoms. No treatment change. Allergic rhinitis 10/24/2012 Resolved Problems Problem Noted Date Diagnosed Date Resolved Date Dyspnea on exertion 12/31/2019 05/02/20 20 Syncope and collapse 02/07/2019 020 Acute focal neurological deficit 02/07/2019 06/05/2019 Atherosclerotic heart diseas e of [place] coronary artery without angina pectoris 12/18/2018 05/02/2020 Sacroiliitis 08/23/2015 05/02/2020 Overview (12/05/2018): Transitioned From: Chronic sacroiliac strain, initial encounter Assessment & Plan (01/01/2019 4:53 PM CDT): History of sacroiliitis, will contact Dr. Peters to arrange follow-up. Daytime hypersomnolence 05/19/201504/14 Encounter for preventive health examination 08/16/2012 12/05/2018 Immunizations Name Administration Dates Next Due Fluzone High Dose - >Age 65 (Prefilled Syringe) 05/01/2020(Deferred: Patient Refused) Influenza (Generic) 02/20/2006 Family History Medical History Relation Comments Lung Cancer Brother Diabetes Father CAD Mother Diabetes Mother Hypertension Mother Relation Status Comments Brother Father Mother Social History Tobacco Use Types Packs/Day Years Used Date Smoking Tobacco: Never Smokeless Tobacco: Never Tobacco Cessation:Counseling Given: No Alcohol Use Standard Drinks/Week Comments Not Currently 0 (1 standard drink = 0.6 oz pur e alcohol) AUDIT-C Answer Date Recorded Q1: How often do you have a drink containing alc ohol? Never 05/01/2020 Average Number of Drinks Not on file 020 Frequency of Binge Drinking Not on file 04/14 Comments No Sex and Gender Information Value Date Recorded Sex Assigned at Not on file Legal Sex Female 4:55 PM CDT Gender Identity Female 06/21/2021 6:04 PM PAPER TUBE MACHINE OPERATOR Sexual Orientation Not on file Last Filed Vital Signs Vital Sign Reading Time Taken Comments Blood Pressure 122/84 05/01/2020 4:13 PM PAPER TUBE MACHINE OPERATOR Pulse 78 05/01/2020 4:13 PM PAPER TUBE MACHINE OPERATOR Temperature 36.7 C (98 F) 05/01/2020 4:13 PM PAPER TUBE MACHINE OPERATOR Respiratory Rate 18 05/01/2020 4:13 PM PAPER TUBE MACHINE OPERATOR Oxygen Saturation 98% 05/01/2020 4:13 PM PAPER TUBE MACHINE OPERATOR Inhaled Oxygen Concentration - - Weight 79.7 kg (175 lb 9.6 oz) 05/01/2020 4:13 P M PAPER TUBE MACHINE OPERATOR Height 162.6 cm (5' 4 ) 05/01/2020 4:13 PM PAPER TUBE MACHINE OPERATOR Body Mass Index 30.14 05/01/2020 4:13 PM PAPER TUBE MACHINE OPERATOR Plan of Treatment Health Maintenance Due Date Last Done Comments Hepatitis C 1968 DTaP, Tdap and Td Vaccines ( 1 - Tdap) 1967 Zoster Vaccines (1 of 2) 1998 Annual Medicare Wellness Visit 2013 Dexa Scan (General) 2013 Pneumococcal Vaccine: 65+ Years (2 of 2 - PPSV23 or PCV20) 04/21/2021 02/24/2021 ASCVD LDL 05/04/2021 05/04/2020, 05/19/2015 RSV Immunization or 60+ Years (1 - 1-dose 75+ series) 2023 COVID-19 Vaccine (3 - 2023-2 5 season) 2024 01/26/2021, 01/05/2021 Influenza Adult (#1) 2024 02/20/2006 Colorectal Cancer Screening Colonoscopy (10 Years) Discontinued 10/13/2012 Meningococcal B Vaccine Aged Out No l onger eligible based on patient's age to complete this topic Meningococcal Vaccine Aged Out No jessica flaca eligible based on patient's age to complete this topic RSV Immunizations Under 20 Months Aged Out No longer eligible based on patient's age to complete this topic Procedures Procedure Name Priority Date/Time Associated Diagnosis Comments LIPID PANEL Routine 05/04/2020 10:59 AM PAPER TUBE MACHINE OPERATOR Medication management COLONOSCOPY Routine 10/13/2012 12:00 AM CDT from Last 3 Months or Most Recently Relevant to Health Maintenance Results * LIPID PANEL (05/04/2020 10:59 AM PAPER TUBE MACHINE OPERATOR) CHOLESTEROL 136 <200 mg/dL [facility] HDL 54 > OR = 50 mg/dL [facility] TRIGLYCERIDES 90 <150 mg/dL [facility] LDL (CALCULATED) 65 mg/dL (calc) [facility] Comment: Reference range: <100 Desirable range <100 mg/dL for primary prevention; <70 mg/dL for patients with CHD or diabetic patients with > or = 2 CHD risk factors. LDL-C is now calculated using the Mike calculation, which is a validated novel method providing better accuracy than the Friedewald equation in the estimation of LDL-C. Pete SS et al. TOMASZ. 2013;310(19): 7572-0574 (http://education.[employer]/faq/ONF947) CHOL/HDL RATIO 2.5 <5.0 (calc) [facility] NON HDL CHOLESTEROL 82 <130 mg/dL (calc) [facility] Comment: For patients with diabetes plus 1 major ASCVD risk factor, treating to a non-HDL-C goal of <100 mg/dL (LDL-C of <70 mg/dL) is considered a therapeutic option. 05/04/2020 10:5 9 AM PAPER TUBE MACHINE OPERATOR 05/04/2020 10:59 AM PAPER TUBE MACHINE OPERATOR Narrative [facility] - 05/05/2020 8:08 AM PAPER TUBE MACHINE OPERATOR FASTING:YES FASTING: YES us Ashish Paulino MD LABORATORY Final Res ult [facility] [id number] [id number] * Colonoscopy (10/13/2012 12:00 AM CDT) 10/13/2012 10/13/2012 Narrative [facility] - 10/13/2012 12:00 AM CDT Documented hx of procedure Procedure Note Keila Franco MD - 03/18/2018 Documented hx of procedure us Generic Conversion Md [facility] GI PROCEDURE ORDERABLES Final Result Performing Organization Address City/State/[facility] Co de Phone Number [facility] CONVERSION from Last 3 Months or Most Recently Relevant to Health Maintenance Insurance Care Teams Warehouse Delivery Driver Relationship Specialty Start Date End Date Ashish Paulino MD PCP - General INTERNAL MEDICINE 12/05/18
--- OUTSIDE RECORDS SUMMARY | 2024-07-29 16:51 | XMS_ITS | Referral Summary ---
Author Organization [facility] Address [address] [place] [address] Care Team Providers Care Guidance Director Name Role Phone Ashish Paulino MD Primary Care Provider + Ashish Paulino MD Unavailable Allergies Active Allergy Reactions Criticality Noted Date Comments Cpm-Phenylpropanolami ne-Dm-Asa Palpitations Low 02/18/2023 Patient states she gets heart palpitations with any kind of Camila-seltzer medications. Codeine Hives,Stomach upset High Reaction: Hives, GI upset, Codeine Hives Medium 02/18/2023 Penicillins Hives,Stomach upset High Reaction: Hives, GI upset, Penicillins Hives Medium 02/18/2023 Medications venlafaxine XR (EFFEXOR-XR) 150 mg 24 hr capsule Take 150 mg by mouth daily 09/16/2020 Active nitroglycerin (NITROSTAT) 0.[address] 0.4 mg under the tongue every 5 (five) minutes as needed Active metoprolol XL (TOPROL-XL) 25 mg extended release tablet Take 25 mg by mouth daily 04/28/2020 Active fenofibrate (TRIGLIDE) 160 mg tablet Take 160 mg by mouth daily 09/16/2020 Active ezetimibe (ZETIA) 10 mg tablet Take 10 mg by mouth daily 04/19/2020 Active chlorthalidone 25 mg tablet Take 12.5 mg by mouth daily 09/16/2020 Active atorvastatin (LIPITOR) 40 mg tablet Take 40 mg by mouth daily 04/04/2020 Active aspirin 81 mg chewable tablet Take 81 mg by mouth daily Active traZODone (DESYREL) 50 mg tablet 02/25/2021 Active atorvastatin (LIPITOR) 80 mg tablet Take 1 tablet (80 mg total) by mouth daily 12/17/2022 Active cholecalciferol (VITAMIN D-3) 50,000 unit capsule Take 1 capsule (50,000 Units total) by mouth once a week 01/09/2023 Active chlorthalidone (HYGROTON) 25 mg tablet Take 1 tablet (25 mg total) by mouth daily 12/23/2022 Active dicyclomine (BENTYL) 20 mg tablet TAKE 1 TABLET BY MOUTH THREE TIMES A DAY FOR 1 MONTH 12/30/2022 Active levothyroxine (SYNTHROID) 50 mcg tablet TAKE 1 TABLET BY MOUTH EVERY DAY ON AN EMPTY STOMACH FIRST IN MORNING 02/11/[address] (PROTONIX) 40 mg EC tablet Take 1 tablet (40 mg total) by mouth daily as needed 12/19/2022 Active venlafaxine XR (EFFEXOR-XR) 150 mg 24 hr capsule Take 1 capsule (150 mg total) by mouth daily 01/09/2023 Active Active Problems Problem Noted Date Diagnosed Date Accidental drug ingestion, initial encounter 11/2022 Trochanteric bursitis of both hips 04/05/2021 PVC (premature ventricular contraction) 10/31/19 21 Overview (10/30/2020): Added automatically from request for surgery [id number] Fracture of upper arm 02/02/2016 Fracture, scapula 01/27/2016 Social History Tobacco Use Types Packs/Day Years Used Date Smoking Tobacco: Never Passive Smoke Exposure: Never Smokeless Tobacco: Never Tobacco Cessation:Counseling Given: No AUDIT-C Answer Date Recorded Q1: How often do you have a drink containing alc ohol? Monthly or less 11/20/2020 Average Number of Drinks Not on file 021 Frequency of Binge Drinking Not on file 01/2021 Personal Safety Answer Date Recorded Have you ever been in or are you currently in a harmful physical or emotional relationship or is someone making you feel afraid or unsafe? Denies 02/18/2023 Comments Unknown Sex and Gender Information Value Date Recorded Sex Assigned at Not on file Legal Sex Female 8:06 AM TIME BROKER Gender Identity Not on file Sexual Orientation Not on file Last Filed Vital Signs Vital Sign Reading Time Taken Comments Blood Pressure 125/53 02/19/2023 3:00 PM CDT Pulse 95 02/19/2023 3:00 PM CDT Temperature 36.3 C (97.4 F) 02/19/2023 12:00 PM CDT Respiratory Rate 17 02/19/2023 3:00 PM CDT Oxygen Saturation 93% 02/19/2023 3:00 PM CDT Inhaled Oxygen Concentration - - Weight 89.6 kg (197 lb 8.5 oz) 02/18/2023 5:00 P M CDT Height 157.5 cm (5' 2 ) 02/18/2023 5:00 PM CDT Body Mass Index 36.13 02/18/2023 5:00 PM CDT Plan of Treatment Not on file Insurance MEDICARE SOLUTIONS MEDICARE SOLUTIONS AETNA MEDICARE T MEDICARE Care Teams Guidance Director Relationship Specialty Start Date End Date Ashish Paulino MD [address] [place] [id number] PCP - General Internal Medicine 02/18/23 Ashish Paulino MD [address] [place] [address] 02/18/23
--- OUTSIDE RECORDS SUMMARY | 2024-07-29 16:51 | XMS_ITS | Clinical Summary ---
Author Organization [facility] Address [address] [place] [address] Care Team Providers Care Sales Agent Marine Insurance Name Role Phone Unavailable Primary Care Provider Unavailabl e Allergies Active Allergy Reactions Criticality Noted Date Comments Adhesive Rash Low 07/29/2024 Codeine Hives,Nausea and Vomiting,Other (See Comments),Unknown High 10/24/2012 Reaction: Hives, GI upset, Reaction: Hives, GI upset, Penicillins Hives,Nausea and Vomiting,Other (See Comments),Unknown High 10/24/2012 Reaction: Hives, GI upset, Reaction: Hives, GI upset, Medications atorvastatin (LIPITOR) 80 mg tablet Take 80 mg by mouth daily. 12/17/2022 Active chlorthalidone (HYGROTON) 25 mg tablet Take 25 mg by mouth daily. Active cholecalciferol 1,250 mcg (50,000 unit) Capsule Take 50,000 Units by mouth every 7 days. Active metoprolol succinate (TOPROL XL) 25 mg Extended Release 24 hour tablet Take 25 mg by mouth daily. 12/01/2021 Active nitroglycerin (NITROSTAT) 0.4 mg Tablet, Sublingual Place 0.4 mg under tongue every 5 minutes as needed. Active pantoprazole (PROTONIX) 40 mg Tablet, Delayed Release (E.C.) Take 40 mg by mouth daily. Active venlafaxine (EFFEXOR XR) 150 mg Extended Release 24 hour capsule Take 150 mg by mouth daily. Active escitalopram oxalate (LEXAPRO) 10 mg tablet Take 10 mg by mouth daily. Active Unithroid 50 mcg tablet Take 50 mcg by mouth daily. Active Active Problems No known active problems Encounters Date Type Department Care Team Description 07/29/2024 1:30 PM CDT Office Visit [facility] - [place] [address] [place] [address] Joe lBand MD Essential thrombocytosis (CMS/HCC) (Primary Dx) 07/29/2024 Abstract [facility] - [place] [address] [place] [address] Joe Bland MD from Last 3 Months Family History Medical History Relation Name Comments Liver Cancer Brother 1 Heart Disease Brother 2 No Known Problems Brother 3 Diabetes Brother 4 No Known Problems Child 1 No Known Problems Child 2 Lung Cancer Father Diabetes Mother Heart Disease Mother No Known Problems Sister Relation Name Status Comments Brother 1 Brother 2 Brother 3 Alive Brother 4 Alive Child 1 Alive Child 2 Alive Father Mother Sister Alive Social History Tobacco Use Types Packs/Day Years Used Date Smoking Tobacco: Never Smokeless Tobacco: Never Tobacco Cessation:Counseling Given: Not Answered Alcohol Use Standard Drinks/Week Comments Never 0 (1 standard drink = 0.6 oz pur e alcohol) Comments Unknown Sex and Gender Information Value Date Recorded Sex Assigned at Not on file Legal Sex Female 1:32 PM COUNTER INTELLIGENCE AGENT Gender Identity Not on file Sexual Orientation Not on file Last Filed Vital Signs Vital Sign Reading Time Taken Comments Blood Pressure 137/73 07/29/2024 1:41 PM CDT Pulse 92 07/29/2024 1:41 PM CDT Temperature 36.2 C (97.2 F) 07/29/2024 1:41 PM CDT Respiratory Rate 15 07/29/2024 1:41 PM CDT Oxygen Saturation 96% 07/29/2024 1:41 PM CDT Inhaled Oxygen Concentration - - Weight 82.2 kg (181 lb 3.2 oz) 07/29/2024 1:41 P M CDT Height 162.6 cm (5' 4 ) 07/29/2024 1:41 PM CDT Body Mass Index 31.1 07/29/2024 1:41 PM CDT Plan of Treatment Upcoming Encounters Date Type Department Care Team (Late st Contact Info) Description 08/14/2024 1:00 PM CDT Office Visit [facility] - [place] [address] [place] [address] Joe Bland MD [address] [place] [address] Health Maintenance Due Date Last Done Comments DTAP/TDAP/TD VACCINES (1 - Tdap) 1969 PNEUMOCOCCAL VACCINE 50+ YEARS (1 of 1 - PCV) 04/30/19 98 ZOSTER VACCINE (1 of 2) 1998 OSTEOPOROSIS SCREENING 2013 RSV VACCINE (60+ or ) (1 - 1-dose 75+ series) 2023 INFLUENZA VACCINE (#1) 2023 Medicare Advantage (DC) Prev entative Visit/Annual Wellness Visit 05/15/2024 Insurance AETNA PPO [facility]
--- OUTSIDE RECORDS SUMMARY | 2024-07-29 16:51 | XMS_ITS | Data Portability ---
Author Organization [facility], [place] Address [address] [place] [address] Assessment No assessment recorded. Plan of Treatment Reminders Order Date Submit Date Provider Last Modified By Organization Details Last Modified Time Details Appointments None recorded. Lab homocystein e, serum or plasma 2017 018 [facility], [address] [place] [address], [id number], 9 05:01:03 CMP, serum or plasma 2017 018 [facility], [address] [place] [address], [id number], 9 05:01:03 CBC 2017 018 [facility], [address] [place] [address], [id number], 9 05:01:03 CK (creatine kinase), total, serum 2017 018 [facility], [address] [place] [address], [address], 9 05:01:03 lipid panel, serum 2017 018 [facility], [address] [place] [address], 83065, 9 05:01:03 CMP, serum or plasma 2017 018 [facility], [address] [place] [address], [address], 8 18:32:15 [facility], serum [facility] [address] [place] [address], [address], 8 18:32:15 hepatitis C Ab, serum 2017 018 [facility], [address] [place] [address], [address]14[address], 8 18:32:16 hemoglobin, qualitative , stool by immunologic method 2017 018 [facility], [address] [place] [address], 78[address], 8 00:38:39 CMP, serum or plasma 2017 018 [email or web address] 5 [facility], [address] [place] [address], [address]609, 8 11:13:53 lipid panel, serum 2017 018 [email or web address] 5 [facility], [address] [place] [address], 9[address], 8 11:13:53 insulin, serum 2017 018 [email or web address] 5 [facility], [address] [place] [address], 71092, 8 11:13:53 HbA1c (hemoglobin A1c), blood 2017 018 [email or web address] 5 [facility], [address] [place] [address], [address], 8 11:13:53 Referral None recorded. Procedures None recorded. Surgeries None recorded. Imaging None recorded. Medication Orders None recorded. Patient TargetsNo targets recorded. Patient Instructions Encounter Date Encounter Id Patient Instructions Last Modified By Organization Details Last Modified Time 06/19/2017 [id number] elevated blood pressure: care instructions cmackie Not available 06/19/2017 15:15:14 09/29/2017 [id number] high cholesterol : care instructions cmackie Not available 09/29/2017 10:12:17 hypoglycemia: care instructions cmackie Not available 09/29/2017 10:10:44 angina: care instructions cmackie Not available 09/29/2017 10:10:44 01/29/2018 [id number] elevated blood pressure: care instructions cmackie Not available 01/29/2018 11:11:52 high cholesterol : care instructions cmackie Not available 01/29/2018 11:11:52 Reason for Referral None Reported. Results Created Date Observation Date Name Description Value Unit Range Abnormal Flag Note LastModifiedBy Organization Detail LastModifiedTime 08/20/19 18 08/21/2017 lipid panel , serum cholesterol, total 174 mg/dL <200 normal Not Available [facility] [address] [place], [address], 08/21/2017 13:25:12 08/20/19 18 08/21/2017 lipid panel , serum HDL cholesterol 62 mg/dL >50 normal Not Available [facility] [address], [place], [address], 08/21/2017 13:25:12 08/20/19 18 08/21/2017 lipid panel , serum triglyceride s 80 mg/dL <150 normal Not Available [facility] [address] [place], [address], 08/21/2017 13:25:12 08/20/19 18 08/21/2017 lipid panel , serum LDL-choleste rol 95 mg/dL _(fanny c) normal Refer ence range : <100 Brenda able range <100 mg/dL for patie nts with CHD or diabe milka and <70 mg/dL for diabe tic patie nts with known heart disea se. LDL-C is now calcu lated using the Diana n-Hop kins calcu jose miguel n, which is a valid ated novel ashli rangel acsahil than the Fried michael equat ion in the estim ation of LDL-C . Diana n SS et al. TOMASZ. 2013; 310(1 9): 2061- 2068 (http ://ed ucati on.Qu Ramona mcgheeMosaic Storage Systemss. com/f aq/FA Q164) Not Available [facility] [place] [facility] [address], [place], [address], 08/21/2017 13:25:12 08/20/19 18 08/21/2017 lipid panel , serum chol/HDLC ratio 2.8 (calc ) <5.0 normal Not Available [facility] [place] [facility] [address], [place], [address], 08/21/2017 13:25:12 08/20/19 18 08/21/2017 lipid panel , serum non HDL cholesterol 112 mg/dL _(fanny c) <130 normal For patie nts with diabe milka plus 1 major ASCVD risk facto r, treat ing to a non-H DL-C goal of <100 mg/dL (LDL- C of <70 mg/dL ) is consi dered a thera peuti c optio n. Not Available [facility] [place] [facility] [address], [place], [address], 08/21/2017 13:25:12 08/20/19 18 08/21/2017 CMP, serum or plasm a glucose 120 mg/dL 65-99 high Fasti ng refer ence inter adria For someo ne witho ut known diabe milka, a gluco se value betwe en 100 and 125 mg/dL is consi stent with predi abete s and shoul d be confi rmed with a follo w-up test. Not Available [facility] [place] [facility] [address], [place], [address], 08/21/2017 13:25:12 08/20/19 18 08/21/2017 CMP, serum or plasm a urea nitrogen (BUN) 23 mg/dL 7-25 normal Not Available [facility] [place] [facility] [address], [place], [address], 08/21/2017 13:25:12 08/20/19 18 08/21/2017 CMP, serum or plasm a creatinine 0.94 mg/dL 0.50-0 .99 normal For patie nts >49 years of age, the refer ence limit for Creat inine is appro iris bradley 13% highe r for peopl e ident ified as Afric an-Am cheng n. Not Available [facility] [address], [place], [address], 08/21/2017 13:25:12 08/20/19 18 08/21/2017 CMP, serum or plasm a eGFR non-afr. nicaraguan 62 mL/mi n/1.7 3m2 > or = 60 normal Not Available [facility] [address], [place], [address], 08/21/2017 13:25:12 08/20/19 18 08/21/2017 CMP, serum or plasm a eGFR 72 mL/mi n/1.7 3m2 > or = 60 normal Not Available [facility] [address], [place], [address], 08/21/2017 13:25:12 08/20/19 18 08/21/2017 CMP, serum or plasm a BUN/creatini ne ratio NOT APPLIC ABLE (calc ) 6-22 Not Available [facility] [address], [place], [address], 08/21/2017 13:25:12 08/20/19 18 08/21/2017 CMP, serum or plasm a sodium 142 mmol/ L 135-14 6 normal Not Available [facility] [address], [place], [address], 08/21/2017 13:25:12 08/20/19 18 08/21/2017 CMP, serum or plasm a potassium 4.7 mmol/ L 3.5-5. 3 normal Not Available [facility] [address], [place], [address], 08/21/2017 13:25:12 08/20/19 18 08/21/2017 CMP, serum or plasm a chloride 103 mmol/ L 98-110 normal Not Available [facility] [address], [place], [address], 08/21/2017 13:25:12 08/20/19 18 08/21/2017 CMP, serum or plasm a carbon dioxide 28 mmol/ L 20-31 normal Not Available [facility] [address], [place], [address], 08/21/2017 13:25:12 08/20/19 18 08/21/2017 CMP, serum or plasm a calcium 10.2 mg/dL 8.6-10 .4 normal Not Available [facility] [address], [place], [address], 08/21/2017 13:25:12 08/20/19 18 08/21/2017 CMP, serum or plasm a protein, total 7.1 g/dL 6.1-8. 1 normal Not Available [facility] [address], [place], [address], 08/21/2017 13:25:12 08/20/19 18 08/21/2017 CMP, serum or plasm a albumin 4.4 g/dL 3.6-5. 1 normal Not Available [facility] [address], [place], [address], 08/21/2017 13:25:12 08/20/19 18 08/21/2017 CMP, serum or plasm a globulin 2.7 g/dL_ (calc ) 1.9-3. 7 normal Not Available [facility] [address], [place], [address], 08/21/2017 13:25:12 08/20/19 18 08/21/2017 CMP, serum or plasm a albumin/glob ulin ratio 1.6 (calc ) 1.0-2. 5 normal Not Available [facility] [address], [place], [address], 08/21/2017 13:25:12 08/20/19 18 08/21/2017 CMP, serum or plasm a bilirubin, total 0.5 mg/dL 0.2-1. 2 normal Not Available [facility] [place] [facility] [address], [place], [address], 08/21/2017 13:25:12 08/20/19 18 08/21/2017 CMP, serum or plasm a alkaline phosphatase 75 U/L 33-130 normal Not Available [facility] [address], [place], [address], 08/21/2017 13:25:12 08/20/19 18 08/21/2017 CMP, serum or plasm a AST 26 U/L 10-35 normal Not Available [facility] [address], [place], [address], 08/21/2017 13:25:12 08/20/19 18 08/21/2017 CMP, serum or plasm a ALT 31 U/L 6-29 high Not Available [facility] [address], [place], [address], 08/21/2017 13:25:12 08/20/19 18 08/21/2017 HbA1c (hemo globi n A1c), blood hemoglobin A1C 5.9 %_of_ total _HGB <5.7 high For someo ne witho ut known diabe milka, a hemog lobin A1c value betwe en 5.7% and 6.4% is consi stent with predi abete s and shoul d be confi rmed with a follo w-up test. For someo ne with known diabe milka, a value <7% indic ates that their diabe milka is well contr olled . A1c targe ts shoul d be indiv idual ized based on durat ion of diabe milka, age, comor bid condi tions , and other consi derat ions. This assay resul t is consi stent with an incre ased risk of diabe milka. Curre ntly, no conse nsus exist s regar ding use of hemog lobin A1c for diagn osis of diabe milka for child mela. Not Available [facility] [place] [facility] [address], [place], [address], 08/21/2017 13:25:13 08/20/19 18 08/21/2017 insul in, serum insulin 14.1 uIU/m L 2.0-19 .6 normal This insul in assay shows stron g cross -reac tivit y for some insul in analo gs (lisp ro, aspar t, and glarg ine) and much lower cross -reac tivit y with other s (dete edwin, gluli sine) . Not Available [facility] [place] [facility] [address], [place], [address], 08/21/2017 13:25:13 09/28/19 18 09/28/2017 gluco se carmencita ance test, post- 75G, 3 speci mens fasting specimen 96 mg/dL 65-99 normal Not Available [facility] [place] [facility] [address], [place], [address], 09/28/2017 16:14:49 09/28/19 18 09/28/2017 gluco se carmencita ance test, post- 75G, 3 speci mens 1 hour specimen 185 mg/dL normal Not Available [facility] [place] [facility] [address], [place], [address], 09/28/2017 16:14:49 09/28/19 18 09/28/2017 gluco se carmencita ance test, post- 75G, 3 speci mens 2 hour specimen 92 mg/dL <140 normal Not Available [facility] [place] [facility] [address], [place], [address], 09/28/2017 16:14:49 09/28/19 18 09/28/2017 gluco se carmencita ance test, post- 75G, 3 speci mens comment [facility] maureen for Diabe milka Melli tus Gluco se Value (mg/d L) Inter preta tion Fasti ng 1 Hr 2 Hr Carmencita ance Carmencita ance ----- ----- ---- ----- ---- ----- ---- ----- ---- Faye l <1 00 Not Estab lishe d <140 Impai red Fasti ng 100-1 25 Impai red Carmencita ance 140-1 99 Diabe milka >OR=1 26* >OR=2 00* * Must be confi rmed by testi ng on a subse quent day. Not Available [facility] [place] [facility] [address], [place], [address], 09/28/2017 16:14:49 09/28/19 18 09/28/2017 insul in, serum insulin 7.2 uIU/m L 2.0-19 .6 normal This insul in assay shows stron g cross -reac tivit y for some insul in analo gs (lisp ro, aspar t, and glarg ine) and much lower cross -reac tivit y with other s (dete edwin, gluli sine) . Not Available [facility] [place] [facility] [address], [place], [address], 09/28/2017 16:14:52 01/25/20 18 01/25/2018 lipid panel , serum cholesterol, total 171 mg/dL <200 normal Not Available [facility] [place] [facility] [address], [place], [address], 01/25/2018 18:32:15 01/25/20 18 01/25/2018 lipid panel , serum HDL cholesterol 60 mg/dL >50 normal Not Available [facility] [place] [facility] [address], [place], [address], 01/25/2018 18:32:15 01/25/20 18 01/25/2018 lipid panel , serum triglyceride s 94 mg/dL <150 normal Not Available [facility] [place] [facility] [address], [place], [address], 01/25/2018 18:32:15 01/25/20 18 01/25/2018 lipid panel , serum LDL-choleste rol 92 mg/dL _(fanny c) normal Refer ence range : <100 Brenda able range <100 mg/dL for prima ry preve ntion ; <70 mg/dL for patie nts with CHD or diabe tic patie nts with > or = 2 CHD risk facto rs. LDL-C is now calcu lated using the Diana n-Hop kins calcu jose miguel n, which is a valid ated novel luo d lashae wolfete r accur acy than the Fried michael equat ion in the estim ation of LDL-C . iDana reveles SS et al. TOMASZ. 2013; 310(1 9): 2061- 2068 (http ://ed ucati on.Qu Ramona Brain [employer]. com/f aq/FA Q164) Not Available [facility] [place] [facility] [address], [place], [address], 01/25/2018 18:32:15 01/25/20 18 01/25/2018 lipid panel , serum chol/HDLC ratio 2.9 (calc ) <5.0 normal Not Available [facility] [place] [facility] [address], [place], [address], 01/25/2018 18:32:15 01/25/20 18 01/25/2018 lipid panel , serum non HDL cholesterol 111 mg/dL _(fanny c) <130 normal For patie nts with diabe milka plus 1 major ASCVD risk facto r, treat ing to a non-H DL-C goal of <100 mg/dL (LDL- C of <70 mg/dL ) is consi dered a thera peuti c optio n. Not Available [facility] [place] [facility] [address], [place], [address], 01/25/2018 18:32:15 01/25/20 18 01/25/2018 CMP, serum or plasm a glucose 99 mg/dL 65-99 normal Fasti ng refer ence inter adria Not Available [facility] [place] [facility] [address], [place], [address], 01/25/2018 18:32:15 01/25/20 18 01/25/2018 CMP, serum or plasm a urea nitrogen (BUN) 21 mg/dL 7-25 normal Not Available [facility] [address], [place], [address], 01/25/2018 18:32:15 01/25/20 18 01/25/2018 CMP, serum or plasm a creatinine 0.83 mg/dL 0.50-0 .99 normal For patie nts >49 years of age, the refer ence limit for Creat inine is appro ximat kirk 13% highe r for peopl e ident ified as Afric an-Am cheng n. Not Available [facility] [address], [place], [address], 01/25/2018 18:32:15 01/25/20 18 01/25/2018 CMP, serum or plasm a eGFR non-afr. nicaraguan 72 mL/mi n/1.7 3m2 > or = 60 normal Not Available [facility] [address], [place], [address], 01/25/2018 18:32:15 01/25/20 18 01/25/2018 CMP, serum or plasm a eGFR 83 mL/mi n/1.7 3m2 > or = 60 normal Not Available [facility] [place] [facility] [address], [place], [address], 01/25/2018 18:32:15 01/25/20 18 01/25/2018 CMP, serum or plasm a BUN/creatini ne ratio NOT APPLIC ABLE (calc ) 6-22 Not Available [facility] [address], [place], [address], 01/25/2018 18:32:15 01/25/20 18 01/25/2018 CMP, serum or plasm a sodium 141 mmol/ L 135-14 6 normal Not Available [facility] [address], [place], [address], 01/25/2018 18:32:15 01/25/20 18 01/25/2018 CMP, serum or plasm a potassium 4.2 mmol/ L 3.5-5. 3 normal Not Available [facility] [address], [place], [address], 01/25/2018 18:32:15 01/25/20 18 01/25/2018 CMP, serum or plasm a chloride 102 mmol/ L 98-110 normal Not Available [facility] [address], [place], [address], 01/25/2018 18:32:15 01/25/20 18 01/25/2018 CMP, serum or plasm a carbon dioxide 29 mmol/ L 20-32 normal Not Available [facility] [address], [place], [address], 01/25/2018 18:32:15 01/25/20 18 01/25/2018 CMP, serum or plasm a calcium 9.9 mg/dL 8.6-10 .4 normal Not Available [facility] [address], [place], [address], 01/25/2018 18:32:15 01/25/20 18 01/25/2018 CMP, serum or plasm a protein, total 7.3 g/dL 6.1-8. 1 normal Not Available [facility] [address], [place], [address], 01/25/2018 18:32:15 01/25/20 18 01/25/2018 CMP, serum or plasm a albumin 4.5 g/dL 3.6-5. 1 normal Not Available [facility] [address], [place], [address], 01/25/2018 18:32:15 01/25/20 18 01/25/2018 CMP, serum or plasm a globulin 2.8 g/dL_ (calc ) 1.9-3. 7 normal Not Available [facility] [address], [place], [address], 01/25/2018 18:32:15 01/25/20 18 01/25/2018 CMP, serum or plasm a albumin/glob ulin ratio 1.6 (calc ) 1.0-2. 5 normal Not Available [facility] [address], [place], [address], 01/25/2018 18:32:15 01/25/20 18 01/25/2018 CMP, serum or plasm a bilirubin, total 0.5 mg/dL 0.2-1. 2 normal Not Available [facility] [address], [place], [address], 01/25/2018 18:32:15 01/25/20 18 01/25/2018 CMP, serum or plasm a alkaline phosphatase 86 U/L 33-130 normal Not Available [facility] [address], [place], [address], 01/25/2018 18:32:15 01/25/20 18 01/25/2018 CMP, serum or plasm a AST 29 U/L 10-35 normal Not Available [facility] [address], [place], [address], 01/25/2018 18:32:15 01/25/20 18 01/25/2018 CMP, serum or plasm a ALT 22 U/L 6-29 normal Not Available [facility] [place] [facility] [address], [place], [address], 01/25/2018 18:32:15 01/25/20 18 01/25/2018 hepat itis C virus Ab, serum hepatitis C antibody NON-RE ACTIVE non-re active normal Not Available [facility] [place] [facility] [address], [place], [address], 01/25/2018 18:32:16 01/25/20 18 01/25/2018 hepat itis C virus Ab, serum signal to cut-off 0.01 <1.00 normal Not Available [facility] [place] [facility] [address], [place], [address], 01/25/2018 18:32:16 01/30/20 18 02/09/2018 hemog lobin , quali tativ e, stool by immun ologi c metho d hemoquant, feces 3.0 mg_HG B_eq/ g less than 3.0 high This test was devel oped and its darnell tical perfo rmanc e farideh cteri stics have been deter mined by [facility] . It has not been clear ed or appro reddy by FDA. This assay has been valid ated pursu ant to the CLIA regul ation s and is used for clini fanny purpo ses. Not Available [facility] [place] [facility] [address], [place], [address], 02/09/2018 00:38:39 09/08/19 18 09/07/2017 MRI, abdom en, w/wo contr ast EXAM: MRI PANCRE -MRC P WITHOU T AND WITH CONTRA ST INDICA TION: TECHNI QUE: MR imagin g sequen mark of the pancre as-MRC P were perfor med with and withou t 190 units Dotare m intrav enous contra st, none discar ded. Sequen mark includ e T1 axial IP/OOP , T2 Axial, STIR, T2 barr l, T1 axial with fat suppre ssion, MRCP sequen mark, post IV contra st inject ion T1 axial with fat suppre ssion, and T1 axial IP/OOP . FINDIN GS: The pancre as mainta ins normal T1 hyperi ntensi ty. No solid or cystic pancre atic mass is identi fied. The main pancre atic duct is normal calibe r of 2 mm with domina nt draina ge via the major papill a. Liver is normal in size with smooth contou r. There is diffus e hepati c fat deposi tion. Intrah epatic bile ducts are mildly dilate d. The common bile duct is top normal calibe r of 7 mm and the common hepati c duct is dilate d to 1.1 cm. No choled ocholi thiasi s or defini tive ampull antoine mass. Normal spleen and adrena l glands . Symmet martir enhanc ement of the kidney s withou t hydron ephros is. The abdomi nal aorta is normal calibe r with athero sclero tic plaque . Gross patenc y of the superi or and inferi or mesent judith arteri es. Circum aortic left renal vein incide ntally noted. Patent portal vein. No upper abdomi nal ascite s or pathol ogic adenop athy. There is a promin ent focus of suscep tibili ty artifa ct in the anteri or abdomi nal wall muscul ature in the right upper quadra nt, possib ly relate d to prior surger y. There are a few divert icula in the descen ding and sigmoi d colon. Degene rative endpla te change s throug hout the spine. IMPRES RAMON: 1. Normal pancre as. 2. Hepati c steato sis. 3. Mildly dilate d biliar y system , which is a nonspe cific findin g post cholec ystect janet and often normal . 4. Mild descen ding and sigmoi d colon divert iculos is. Thank you for trusti [facility] [place] with your referr al. If you are a [facility] er and would like to speak with a Radiol ogist concer keshav this exam, please call [phone] . ANDRE JOLLEY MARCO, DO DICTAT ING PHYSIC MAXIM APPROV ING PHYSIC MAXIM ANDRE SAMREEN LARA, DO 2017 05:05 PM 8 12:27 PM This report is provid ed by [facility] Rangel [email or web address]: [email or web address] Radiology [facility] Scheduling Dept (Imaging) [address] [place] [address], [id number], 09/29/2017 09:58:33 09/13/19 18 09/07/2017 MRI, abdom en, w/wo contr ast Addend um ADDEND UM MRI PANCRE -MRC P WITHOU T AND WITH CONTRA ST DATED 2017 Correc tion to indica tion: INDICA TION: Hypogl ycemia . Origin al report EXAM: MRI PANCRE -MRC P WITHOU T AND WITH CONTRA ST INDICA TION: TECHNI QUE: MR imagin g sequen mark of the pancre as-MRC P were perfor med with and withou t 190 units Dotare m intrav enous contra st, none discar ded. Sequen mark includ e T1 axial IP/OOP , T2 Axial, STIR, T2 barr l, T1 axial with fat suppre ssion, MRCP sequen mark, post IV contra st inject ion T1 axial with fat suppre ssion, and T1 axial IP/OOP . FINDIN GS: The pancre as mainta ins normal T1 hyperi ntensi ty. No solid or cystic pancre atic mass is identi fied. The main pancre atic duct is normal calibe r of 2 mm with domina nt draina ge via the major papill a. Liver is normal in size with smooth contou r. There is diffus e hepati c fat deposi tion. Intrah epatic bile ducts are mildly dilate d. The common bile duct is top normal calibe r of 7 mm and the common hepati c duct is dilate d to 1.1 cm. No choled ocholi thiasi s or defini tive ampull antoine mass. Normal spleen and adrena l glands . Symmet martir enhanc ement of the kidney s withou t hydron ephros is. The abdomi nal aorta is normal calibe r with athero sclero tic plaque . Gross patenc y of the superi or and inferi or mesent judith arteri es. Circum aortic left renal vein incide ntally noted. Patent portal vein. No upper abdomi nal ascite s or pathol ogic adenop athy. There is a promin ent focus of suscep tibili ty artifa ct in the anteri or abdomi nal wall muscul ature in the right upper quadra nt, possib ly relate d to prior surger y. There are a few divert icula in the descen ding and sigmoi d colon. Degene rative endpla te change s throug hout the spine. IMPRES RAMON: 1. Normal pancre as. 2. Hepati c steato sis. 3. Mildly dilate d biliar y system , which is a nonspe cific findin g post cholec ystect janet and often normal . 4. Mild descen ding and sigmoi d colon divert iculos is. Andre Ruelas DO THIS IS AN ELECTR ONICAL LY VERIFI ED REPORT [id number] 5:05 PM: Andre Ruelas DO 2017 12:16 PM Thank you for trusti [facility] with your referr al. If you are a [facility] er and would like to speak with a Radiol ogist concer keshav this exam, please call . ANDRE RUELAS DO DICTAT ING PHYSIC MAXIM APPROV ING PHYSIC MAXIM RUELAS DO 2017 03:17 PM 8 08:21 AM ------ ------ ------ ------ ------ End of Addend um Report ------ ------ ------ ------ ------ EXAM: MRI PANCRE -MRC P WITHOU T AND WITH CONTRA ST INDICA TION: TECHNI QUE: MR imagin g sequen mark of the pancre as-MRC P were perfor med with and withou t 190 units Dotare m intrav enous contra st, none discar ded. Sequen mark includ e T1 axial IP/OOP , T2 Axial, STIR, T2 barr l, T1 axial with fat suppre ssion, MRCP sequen mark, post IV contra st inject ion T1 axial with fat suppre ssion, and T1 axial IP/OOP . FINDIN GS: The pancre as mainta ins normal T1 hyperi ntensi ty. No solid or cystic pancre atic mass is identi fied. The main pancre atic duct is normal calibe r of 2 mm with domina nt draina ge via the major papill a. Liver is normal in size with smooth contou r. There is diffus e hepati c fat deposi tion. Intrah epatic bile ducts are mildly dilate d. The common bile duct is top normal calibe r of 7 mm and the common hepati c duct is dilate d to 1.1 cm. No choled ocholi thiasi s or defini tive ampull antoine mass. Normal spleen and adrena l glands . Symmet martir enhanc ement of the kidney s withou t hydron ephros is. The abdomi nal aorta is normal calibe r with athero sclero tic plaque . Gross patenc y of the superi or and inferi or mesent judith arteri es. Circum aortic left renal vein incide ntally noted. Patent portal vein. No upper abdomi nal ascite s or pathol ogic adenop athy. There is a promin ent focus of suscep tibili ty artifa ct in the anteri or abdomi nal wall muscul ature in the right upper quadra nt, possib ly relate d to prior surger y. There are a few divert icula in the descen ding and sigmoi d colon. Degene rative endpla te change s throug hout the spine. IMPRES RAMON: 1. Normal pancre as. 2. Hepati c steato sis. 3. Mildly dilate d biliar y system , which is a nonspe cific findin g post cholec ystect janet and often normal . 4. Mild descen ding and sigmoi d colon divert iculos is. Thank you for [facility] with your referr al. If you are a Health Care Provid er and would like to speak with a Radiol ogist concer keshav this exam, please call . ANDRE RUELAS, DO DICTAT ING PHYSIC MAXIM APPROV ING PHYSIC MAXIM RUELAS, DO 2017 05:05 PM / 8 12:27 PM This report is provid ed by [facility] , [place] https: [email or web address] aleyda [facility] Radiology [facility] Scheduling Dept (Imaging) [address] [place] [address], [phone], 09/29/2017 09:58:32 09/13/19 18 09/07/2017 MRI, abdom en, w/wo contr ast Addend um ADDEND UM MRI PANCRE -MRC P WITHOU T AND WITH CONTRA ST DATED 2017 Correc tion to indica tion: INDICA TION: Hypogl ycemia . Origin al report EXAM: MRI PANCRE -MRC P WITHOU T AND WITH CONTRA ST INDICA TION: TECHNI QUE: MR imagin g sequen mark of the pancre as-MRC P were perfor med with and withou t 190 units Dotare m intrav enous contra st, none discar ded. Sequen mark includ e T1 axial IP/OOP , T2 Axial, STIR, T2 barr l, T1 axial with fat suppre ssion, MRCP sequen mark, post IV contra st inject ion T1 axial with fat suppre ssion, and T1 axial IP/OOP . FINDIN GS: The pancre as mainta ins normal T1 hyperi ntensi ty. No solid or cystic pancre atic mass is identi fied. The main pancre atic duct is normal calibe r of 2 mm with domina nt draina ge via the major papill a. Liver is normal in size with smooth contou r. There is diffus e hepati c fat deposi tion. Intrah epatic bile ducts are mildly dilate d. The common bile duct is top normal calibe r of 7 mm and the common hepati c duct is dilate d to 1.1 cm. No choled ocholi thiasi s or defini tive ampull antoine mass. Normal spleen and adrena l glands . Symmet martir enhanc ement of the kidney s withou t hydron ephros is. The abdomi nal aorta is normal calibe r with athero sclero tic plaque . Gross patenc y of the superi or and inferi or mesent judith arteri es. Circum aortic left renal vein incide ntally noted. Patent portal vein. No upper abdomi nal ascite s or pathol ogic adenop athy. There is a promin ent focus of suscep tibili ty artifa ct in the anteri or abdomi nal wall muscul ature in the right upper quadra nt, possib ly relate d to prior surger y. There are a few divert icula in the descen ding and sigmoi d colon. Degene rative endpla te change s throug hout the spine. IMPRES RAMON: 1. Normal pancre as. 2. Hepati c steato sis. 3. Mildly dilate d biliar y system , which is a nonspe cific findin g post cholec ystect janet and often normal . 4. Mild descen ding and sigmoi d colon divert iculos is. Andre Ruelas DO THIS IS AN ELECTR ONICAL LY VERIFI ED REPORT 018 5:05 PM: Andre Ruelas DO 2017 12:16 PM Thank you for trusti [facility] with your referr al. If you are a [facility] Care [facility] er and would like to speak with a Radiol ogist concer keshav this exam, please call [phone] . ANDRE RUELAS DO DICTAT ING PHYSIC MAXIM APPROV ING PHYSIC MAXIM ANDRE RUELAS DO 2017 03:17 PM DB 8 08:21 AM ------ ------ ------ ------ ------ End of Addend um Report ------ ------ ------ ------ ------ EXAM: MRI PANCRE -MRC P WITHOU T AND WITH CONTRA ST INDICA TION: TECHNI QUE: MR imagin g sequen mark of the pancre as-MRC P were perfor med with and withou t 190 units Dotare m intrav enous contra st, none discar ded. Sequen mark includ e T1 axial IP/OOP , T2 Axial, STIR, T2 barr l, T1 axial with fat suppre ssion, MRCP sequen mark, post IV contra st inject ion T1 axial with fat suppre ssion, and T1 axial IP/OOP . FINDIN GS: The pancre as mainta ins normal T1 hyperi ntensi ty. No solid or cystic pancre atic mass is identi fied. The main pancre atic duct is normal calibe r of 2 mm with domina nt draina ge via the major papill a. Liver is normal in size with smooth contou r. There is diffus e hepati c fat deposi tion. Intrah epatic bile ducts are mildly dilate d. The common bile duct is top normal calibe r of 7 mm and the common hepati c duct is dilate d to 1.1 cm. No choled ocholi thiasi s or defini tive ampull antoine mass. Normal spleen and adrena l glands . Symmet martir enhanc ement of the kidney s withou t hydron ephros is. The abdomi nal aorta is normal calibe r with athero sclero tic plaque . Gross patenc y of the superi or and inferi or mesent judith arteri es. Circum aortic left renal vein incide ntally noted. Patent portal vein. No upper abdomi nal ascite s or pathol ogic adenop athy. There is a promin ent focus of suscep tibili ty artifa ct in the anteri or abdomi nal wall muscul ature in the right upper quadra nt, possib ly relate d to prior surger y. There are a few divert icula in the descen ding and sigmoi d colon. Degene rative endpla te change s throug hout the spine. IMPRES RAMON: 1. Normal pancre as. 2. Hepati c steato sis. 3. Mildly dilate d biliar y system , which is a nonspe cific findin g post cholec ystect janet and often normal . 4. Mild descen ding and sigmoi d colon divert iculos is. Thank you for trusti ng [facility] with your referr al. If you are a [facility] Care [facility] er and would like to speak with a Radiol ogist concer keshav this exam, please call . ANDRE SAMREEN LARA, DO DICTAT ING PHYSIC MAXIM APPROV ING PHYSIC MAXIM ANDRE RUELAS, DO 2017 05:05 PM 8 12:27 PM This report is provid ed by [facility] , [place] https: [email or web address] Radiology [facility] Scheduling Dept (Imaging) [address] [place] [address], [phone], 09/29/2017 09:58:32 09/13/19 18 09/07/2017 MRI, abdom en, w/wo contr ast Addend um ADDEND UM MRI PANCRE -MRC P WITHOU T AND WITH CONTRA ST DATED 2017 Correc tion to indica tion: INDICA TION: Hypogl ycemia . Origin al report EXAM: MRI PANCRE -MRC P WITHOU T AND WITH CONTRA ST INDICA TION: TECHNI QUE: MR imagin g sequen mark of the pancre as-MRC P were perfor med with and withou t 190 units Dotare m intrav enous contra st, none discar ded. Sequen mark includ e T1 axial IP/OOP , T2 Axial, STIR, T2 barr l, T1 axial with fat suppre ssion, MRCP sequen mark, post IV contra st inject ion T1 axial with fat suppre ssion, and T1 axial IP/OOP . FINDIN GS: The pancre as mainta ins normal T1 hyperi ntensi ty. No solid or cystic pancre atic mass is identi fied. The main pancre atic duct is normal calibe r of 2 mm with domina nt draina ge via the major papill a. Liver is normal in size with smooth contou r. There is diffus e hepati c fat deposi tion. Intrah epatic bile ducts are mildly dilate d. The common bile duct is top normal calibe r of 7 mm and the common hepati c duct is dilate d to 1.1 cm. No choled ocholi thiasi s or defini tive ampull antoine mass. Normal spleen and adrena l glands . Symmet martir enhanc ement of the kidney s withou t hydron ephros is. The abdomi nal aorta is normal calibe r with athero sclero tic plaque . Gross patenc y of the superi or and inferi or mesent judith arteri es. Circum aortic left renal vein incide ntally noted. Patent portal vein. No upper abdomi nal ascite s or pathol ogic adenop athy. There is a promin ent focus of suscep tibili ty artifa ct in the anteri or abdomi nal wall muscul ature in the right upper quadra nt, possib ly relate d to prior surger y. There are a few divert icula in the descen ding and sigmoi d colon. Degene rative endpla te change s throug hout the spine. IMPRES RAMON: 1. Normal pancre as. 2. Hepati c steato sis. 3. Mildly dilate d biliar y system , which is a nonspe cific findin g post cholec ystect janet and often normal . 4. Mild descen ding and sigmoi d colon divert iculos is. Andre Ruelas DO THIS IS AN ELECTR ONICAL LY VERIFI ED REPORT 018 5:05 PM: Andre Ruelas DO 2017 12:16 PM Thank you for trusti Radiol o[facility] with your referr al. If you are a [facility] Care [facility] er and would like to speak with a Radiol ogist concer keshav this exam, please call . ANDRE RUELAS DO DICTAT JEFF PHYSIC MAXIM APPROV JEFF RUELAS DO 2017 03:17 PM 8 08:21 AM ------ ------ ------ ------ ------ End of Addend um Report ------ ------ ------ ------ ------ EXAM: MRI PANCRE -MRC P WITHOU T AND WITH CONTRA ST INDICA TION: TECHNI QUE: MR imagin g sequen mark of the pancre as-MRC P were perfor med with and withou t 190 units Dotare m intrav enous contra st, none discar ded. Sequen mark includ e T1 axial IP/OOP , T2 Axial, STIR, T2 barr l, T1 axial with fat suppre ssion, MRCP sequen mark, post IV contra st inject ion T1 axial with fat suppre ssion, and T1 axial IP/OOP . FINDIN GS: The pancre as mainta ins normal T1 hyperi ntensi ty. No solid or cystic pancre atic mass is identi fied. The main pancre atic duct is normal calibe r of 2 mm with domina nt draina ge via the major papill a. Liver is normal in size with smooth contou r. There is diffus e hepati c fat deposi tion. Intrah epatic bile ducts are mildly dilate d. The common bile duct is top normal calibe r of 7 mm and the common hepati c duct is dilate d to 1.1 cm. No choled ocholi thiasi s or defini tive ampull antoine mass. Normal spleen and adrena l glands . Symmet martir enhanc ement of the kidney s withou t hydron ephros is. The abdomi nal aorta is normal calibe r with athero sclero tic plaque . Gross patenc y of the superi or and inferi or mesent judith arteri es. Circum aortic left renal vein incide ntally noted. Patent portal vein. No upper abdomi nal ascite s or pathol ogic adenop athy. There is a promin ent focus of suscep tibili ty artifa ct in the anteri or abdomi nal wall muscul ature in the right upper quadra nt, possib ly relate d to prior surger y. There are a few divert icula in the descen ding and sigmoi d colon. Degene rative endpla te change s throug hout the spine. IMPRES RAMON: 1. Normal pancre as. 2. Hepati c steato sis. 3. Mildly dilate d biliar y system , which is a nonspe cific findin g post cholec ystect janet and often normal . 4. Mild descen ding and sigmoi d colon divert iculos is. Thank you for trusti dae [facility] with your referr al. If you are a [facility] er and would like to speak with a Radiol ogist concer keshav this exam, please call [phone] . ANDRE RUELAS, DO DICTAT ING PHYSIC MAXIM APPROV ING PHYSIC MAXIM ANDRE RUELAS, DO 2017 05:05 PM / 8 12:27 PM This report is provid ed by [facility] , [place] https: //[email or web address] .[email or web address]/ [email or web address] sp [email or web address] Radiology [facility] Scheduling Dept (Imaging) [address] [place] [address], [phone], 09/29/2017 09:58:32 09/30/19 18 09/29/2017 unlignacio pearl order No observ ation record ed. [address], [place], [address], 01/29/2018 11:10:30 11/02/19 18 10/31/2017 CT, heart funct ion and morph ology , w/ contr ast EXAM: CT HEART SCORE WITHOU T CONTRA ST TECHNI QUE: Multi- slice helica l CT images were obtain ed for evalua tion of proxim al 6.0 cm of the barr ry arteri es. The calcif icatio n score for each artery is propor tional to the amount of calciu m in the barr ry vessel wall. All CT scans are perfor med using radiat ion dose reduct ion techni ques. Techni fanny factor s are evalua brittney and adjust ed to ensure approp riate modera tion of exposu re. Automa brittney dose manage ment techno logy is applie d to adjust the radiat ion dose to minimi ze exposu re while achiev ing a diagno stic-q uality image. FINDIN GS: Barr ry artery calcif icatio n scores are as follow s: Left main barr ry artery : 0 Left anteri or descen ding barr ry artery : 0 Left circum flex barr ry artery : 20 Right barr ry artery : 7 Ct Manager ior descen ding artery : 0 Total Barr ry Artery Calciu m Score - 27 IMPRES RAMON: 1. Total barr ry artery calciu m score 27. The score indica milka defini te but mild identi fiable calcif ied plaque . The risk of a future barr ry artery event is modera te. A total score of 27 places the patien t in the 58th percen tile for plaque burden compar ed to age and sex matche d contro ls accord ing to the JOAQUIN calciu m scorin g databa se. Note: Barr ry artery calcif icatio n is a specif ic marker for barr ry athero sclero sis. The amount of calcif icatio n correl ates with severi ty of barr ry athero sclero sis. A high score indica milka a signif icant plaque burden and relati ve risk for future barr ry events . Final Recomm endati on: It is highly recomm ended that the patien t discus s the result s of this examin ation with their primar y care physic maxim, regard less of the test result . EXAM: CT BARR RY ANGIOG CHRISTINA WITH CONTRA ST PRE-LA OCEDUR E MEDICA TION: 200 mg of oral Metopr olol was admini stered . Vital signs were monito red and were stable . Nitrog lyceri ne 0.8 mg sublin gually at 09:09 a.m. was admini stered . Vital signs were monito red and were stable . 0.5 L intrav enous saline was given after the examin ation due to mild systol ic hypote nsion. Patien t was discha rged with stable vital signs. 95 cc of Ultrav ist 370 and 160 cc of saline were inject ed intrav enousl y. Multip le helica l slices were obtain ed using a 64-sli ce CT with ECG synchr onizat ion. Images were transf erred to a 3D APX con workst ation for furthe r evalua tion. All CT scans are perfor med using radiat ion dose reduct ion techni ques. Techni fanny factor s are evalua brittney and adjust ed to ensure approp riate modera tion of exposu re. Automa brittney dose manage ment techno logy is applie d to adjust the radiat ion dose to minimi ze exposu re while achiev ing a diagno stic-q uality image. PATIEN T DEMOGR APHICS : Height - 5 feet 4 inches Weight - 196 pounds Averag e heart rate - 43 bpm. BMI - 33.6 INDICA TION: Chest pain and shortn ess of breath . BARR RY RISK FACTOR S: Family histor y of heart diseas e, hypert ension and hyperc holest erolem ia. FINDIN GS: Overal l image techni fanny qualit y: Good. Extrac ardiac Findin gs: There is a calcif ied granul venkat in the right lower lobe as well as calcif ied left hilar and medias tinal lymph nodes consis tent with old granul omatou s diseas e. Barr ry Artery Domina nce: A right domina nt system is noted. Barr ry Artery Origin s: Normal barr ry artery origin s are noted. Miscel laneou s Findin gs: Left Main Barr ry Artery : The left main barr ry artery is a large calibe r vessel . The distal left main barr ry artery shows mixed densit y but predom inatel y noncal cified plaque causin g a 50-70% stenos is. Left Anteri or Descen ding Barr ry Artery : The left anteri or descen ding barr ry artery is a large calibe r vessel . There is extens brian noncal cified plaque from the distal left main barr ry artery to involv e the proxim al left anteri or descen ding barr ry causin g a mild 25-49% stenos is. The mid and distal LAD are patent withou t eviden ce for plaque . There is a small to modera te sized first diagon al branch which is patent . There is a small second diagon al branch which is patent . Left Circum flex Barr ry Artery : The circum flex barr ry artery is a modera te calibe r vessel . The proxim al circum flex barr ry artery shows calcif ied plaque causin g a mild 25-49% stenos is. There is minima l calcif ied plaque of the mid circum flex barr ry artery withou t stenos is. There is a modera te calibe r first obtuse margin al branch withou t eviden ce for plaque or stenos is. The distal circum flex tapers rapidl y into a small calibe r vessel . Right Barr ry Artery : The right barr ry artery is the domina nt barr ry artery . It is a large calibe r vessel . There is minima l puncta te calcif ied plaque involv ing the proxim al right barr ry artery withou t eviden ce for stenos is. Left Atrium : There is no mass or thromb i. Intact . Left Ventri sabiha: There is no mass or thromb i. Intera trial Septum : Intact . Perica rdium: There is no effusi on. Myocar dium: There is no eviden ce of restin g perfus ion defect . Mitral Valve: The mitral valve leafle ts show no eviden ce of calcif icatio n or thicke keshav. Aortic Valve: A three- leafle t aortic valve is noted withou t eviden ce for calcif icatio n or thicke keshav of the leafle ts. Thorac ic Aorta: There is no eviden ce for aortic aneury sm or dissec tion. IMPRES RAMON: 1. Overal l mild plaque burden . 2. There is mixed densit y, but predom inatel y noncal cified plaque involv ing the distal left main barr ry artery causin g a 50-70% stenos is. Functi onal analys is with FFR CT is catie Reynoso gs discus sed with Dr. De Leon . 2. Calcif ied plaque of the proxim al circum flex barr ry artery causin g a mild stenos is. 3. Predom inantl y noncal cified plaque involv ing the proxim al left anteri or descen ding artery causin g a mild 25-49% stenos is. 4. Minima l calcif ied plaque of the proxim al right barr ry artery which is widely patent throug hout and is the domina nt barr ry artery . Thank you for trusti Radiol ogy [facility] with your referr al. If you are a [facility] er and would like to speak with a Radiol ogist concer keshav this exam, please call . ELVIS DEL ANGEL MD DICTAT ING PHYSIC MAXIM APPROV ING PHYSIC MAXIM BERRY MD 2017 12:21 PM DL 8 06:27 AM COPY TO, QUYNH Adams This report is provid ed by [facility] , [place] https: //[email or web address] .[email or web address]/ [email or web address] aleyda [facility] Radiology [facility] Scheduling Dept (Imaging) [address] [place] [address], [phone], 01/29/2018 11:10:30 11/03/19 18 11/01/2017 heart flow cta coron antoine EXAM: FFR CT HEART FLOW ANALYS IS INDICA TION: Chest pain and shortn ess of breath . 50-70% stenos is of the distal left main barr ry artery on CCTA. Left main barr ry artery : The noncal cified plaque causin g a 50-70% stenos is of the distal left main barr ry artery shows FFR CT values of 0.83 in the proxim al circum flex barr ry artery and 0.85 in the proxim al left anteri or descen ding barr ry. Howeve r, there is a signif icant delta FFR across the LAD of 0.12 and circum flex of 0.14. Would recomm end correl ation with invasi ve barr ry angiog tracy and potent ially IVUS imagin g for evalua tion of the distal left main barr ry artery stenos is second antoine to predom inantl y noncal cified plaque . Findin gs raise suspic ion for a potent ial hemody namica lly signif icant stenos is. Left anteri or descen ding barr ry artery : There is no eviden ce for hemody namica lly signif icant stenos is. Left circum flex barr ry artery : There is no eviden ce for hemody namica lly signif icant stenos is. Right barr ry artery : There is no eviden ce for hemody namica lly signif icant stenos is. Findin gs discus sed with Dr. De Leon . IMPRES RAMON: 1. The stenos is of the distal left main barr ry artery shows findin gs which raise suspic ion for a hemody namica lly signif icant lesion . Would recomm end correl ation with invasi ve barr ry angiog tracy and, if indica brittney, IVUS imagin g or invasi ve FFR. Thank you for shirley [facility] with your referr al. If you are a [facility] Care [facility] er and would like to speak with a Radiol ogist concer keshav this exam, please call . ELVIS DEL ANGEL MD DICTAT ING PHYSIC MAXIM APPROV ING PHYSIC MAXIM DEL ANGEL MD 2017 08:50 AM [facility]/ 18 07:28 AM This report is provid ed by [facility] , [place] https: [email or web address]/ [email or web address] [facility] Scheduling Dept (Imaging) [address] [place] [address], [phone], 01/29/2018 11:10:30 11/17/19 18 11/16/2017 imagi ng/di agnos tic resul t No observ ation record ed. [facility] [address] [place], [address], 01/29/2018 11:10:29 11/21/19 18 11/13/2017 imagi ng/di agnos tic resul t No observ ation record ed. [facility] Not Available 2017 11:10:30 Result Notes None recorded. Problems Name Problem SNOMED Code Status Onset Date Resolution Date Notes Provider Name and Address Organization Details Recorded Time Hypertensive disorder 11618636 Active 2017 Antonia De Leon MD [address] [place], [address] , [facility] 8 11:16:56 Hyperlipidemi a 58228950 Active 2017 Antonia De Leon MD [address], [place], [address] , [facility] 8 11:16:56 Depressive disorder 02688286 Active 2017 Antonia De Leon MD [address], [place], [address] , [facility] 8 11:16:56 Anxiety 70866598 Active 2017 MD Harvey [address], [place], [address] , [facility] 8 11:16:56 Incontinence 83436169 Active 2017 MD Zee [address], [place], [address] [facility] 8 11:16:56 Diverticuliti s 752503009 Active 2017 MD Zee [address], [place], [address] , [facility] 8 11:16:56 Long-term drug therapy Active 2017 Antonia De Leon MD [address], [place], [address] [facility] 8 11:16:56 Coronary arteriosclero sis 16063526 Active 2017 Antonia De Leon MD [address], [place], [address] , [facility] 8 11:16:56 Body mass index 30+ - obesity 694464659 Active 2017 MD Zee [address], [place], [address] , [facility] 8 11:16:56 Angina pectoris 714061552 Active 2017 Antonia De Leon MD [address], [place], [address] , [facility] 8 11:16:56 Prediabetes 045662452 Active 2017 Antonia De Leon MD [address] [place], [address] , [facility] 8 11:16:56 Problem Notes None recorded. Procedures Surgical History Date Name Laterality Status Provider Name and Address Organization Details Recorded Time Tubal Ligation completed [facility] 01/29/2018 10:59:19 Partial hysterectomy completed [facility] 01/29/2018 10:59:26 Cholecystectomy completed [facility] 01/29/2018 10:59:31 Hip arthro w/labral repair completed [facility] 01/29/2018 10:59:42 Imaging Results Imaging Date Name Status LastModified by Organiz ation Details LastModified Time 09/07/2017 MRI, abdomen, w/wo contrast completed [facility] Scheduling Dept (Imaging) [address] [place] [address], [phone], 09/29/2017 09:58:33 09/07/2017 MRI, abdomen, w/wo contrast completed [facility] Scheduling Dept (Imaging) [address] [place] [address], [phone], 09/29/2017 09:58:32 09/07/2017 MRI, abdomen, w/wo contrast completed [facility] Scheduling Dept (Imaging) [address] [place] [address], [phone], 09/29/2017 09:58:32 09/07/2017 MRI, abdomen, w/wo contrast completed [facility] Scheduling Dept (Imaging) [address] [place] [address], [phone], 09/29/2017 09:58:32 09/29/2017 unlisted imaging order completed [facility] [address] , [place], [phone], 01/29/2018 11:10:30 10/31/2017 CT, heart function and morphology, w/ contrast completed [facility] Scheduling Dept (Imaging) [address] [place], [phone], 01/29/2018 11:10:30 11/01/2017 heartflow cta coronary completed [facility] Scheduling Dept (Imaging) [address] [place], [phone], 01/29/2018 11:10:30 11/16/2017 imaging/diagno stic result completed [facility] [address], [place], [address], 01/29/2018 11:10:29 11/13/2017 imaging/diagno stic result completed [facility] Information not available 01/29/2018 11:10:30 Procedure Notes None recorded. Medical Equipment None Reported. Allergies Allergen ID Allergen Name Allergen Category Reaction Reaction Severity Criticality Documentation Date Start Date Code Code System Note Provider Name and Address Organization Details Recorded Time 4576 codeine medicatio n hives Not available Not available 06/19/2017 2670 RxNorm [facility] 8 14:54:30 4577 Product containin g penicilli n (product) medicatio n hives Not available Not available 06/19/2017 96851 8001 SNOMED [facility] 8 14:54:41 Medications Name Sig Start Date Stop Date Status Note LastModified by Organization Details LastModified Time calcium carbonate antacid regu 08/31 completed Not Available Not Available Not Available cough formula - expectorant 08/31 completed Not Available Not Available Not Available medicated callus remover 08/31 completed Not Available Not Available Not Available roll-on muscle relief 08/31 completed Not Available Not Available Not Available wrist support 08/31 completed Not Available Not Available Not Available plastic bandages - 200 count 08/31 completed Not Available Not Available Not Available sinus acetaminophe n/phenylephr 08/31 completed Not Available Not Available Not Available medicated chest rub 08/31 completed Not Available Not Available Not Available generic cough suppressant/ nasa 08/31 completed Not Available Not Available Not Available digital blood pressure monitor 01/29 completed Not Available Not Available Not Available triple antibiotic ointment plu 08/31 completed Not Available Not Available Not Available fenofibrate micronized 160 mg tablet 160 mg by oral route. active Not Available Not Available No t Available atorvastatin 20 mg tablet TAKE 1 TABLET EVERY DAY 2018 active Not Available Not Available Not Avai lable metoprolol tartrate 100 mg tablet 01/29 completed Not Available Not Available Not Available amiodarone 200 mg tablet 200 mg by oral route. 01/29 completed Not Available Not Available Not Available lisinopril 20 mg tablet 20 mg by oral route. 01/29 completed Not Available Not Available Not Available venlafaxine ER 150 mg capsule,exte nded release 24 hr TAKE 1 CAPSULE EVERY DAY 2018 active Not Available Not Available Not Avai lable chlorthalido ne 25 mg tablet TAKE 1 TABLET EVERY DAY 2018 active Not Available Not Available Not Avai lable aspirin 81 mg tablet,delay ed release Take 1 tablet every day by oral route. 2017 active Not Available Not Available Not Avai lable lisinopril 10 mg tablet 01/29 completed Not Available Not Available Not Available nitroglyceri n 0.4 mg sublingual tablet 1 PO QD FOR CHEST PAIN active Not Available Not Available No t Available aspirin 81 mg chewable tablet 81 mg by oral route. active Not Available Not Available No t Available metoprolol tartrate 25 mg tablet 1/2 TABLET DAILY active Not Available Not Available No t Available fenofibrate 160 mg tablet TAKE 1 TABLET EVERY DAY 2018 active Not Available Not Available Not Avai lable aripiprazole 2 mg tablet 1 po qd 09/29 completed Not Available Not Available Not Available Vitals Date Recorded Body height Body mass index (BMI) Body weight Heart rate Oxygen saturation Oxygen saturation in Arterial blood by Pulse oximetry Respiratory rate Systolic blood pressure Diastolic blood pressure Provider Name and Address Organization Details Last Updated DateTime 8 162.56 cm 33.6 kg/m2 52784.1 g 88 /min 98 % 98 % 20 /min 118 mm[Hg] 76 mm[Hg] [facility] 8 14:58:16 Date Recorded Body height Body mass index (BMI) Body weight Heart rate Oxygen saturation Oxygen saturation in Arterial blood by Pulse oximetry Respiratory rate Systolic blood pressure Diastolic blood pressure Provider Name and Address Organization Details Last Updated DateTime 8 162.56 cm 34 kg/m2 56012.2 9 g 84 /min 98 % 98 % 20 /min 112 mm[Hg] 80 mm[Hg] [facility] 8 15:30:26 Date Recorded Body height Body mass index (BMI) Body weight Heart rate Oxygen saturation Oxygen saturation in Arterial blood by Pulse oximetry Respiratory rate Systolic blood pressure Diastolic blood pressure Provider Name and Address Organization Details Last Updated DateTime 8 162.56 cm 33.6 kg/m2 57401.1 g 80 /min 98 % 98 % 20 /min 118 mm[Hg] 70 mm[Hg] [facility] 8 09:44:55 Date Recorded Body height Body mass index (BMI) Body weight Heart rate Oxygen saturation Oxygen saturation in Arterial blood by Pulse oximetry Respiratory rate Systolic blood pressure Diastolic blood pressure Provider Name and Address Organization Details Last Updated DateTime 8 162.56 cm 31.9 kg/m2 68775.1 8 g 91 /min 93 % 93 % 20 /min 130 mm[Hg] 80 mm[Hg] [facility] 8 10:56:22 Social History Question Answer Notes LastModified by Organizat ion Details LastModified Time Tobacco Smoking Status Never Smoker [facility] 06/19/2017 14:57:15 Do You Have An Advance Directive? No Information not available 06/30/2017 What Is Your Level Of Alcohol Consumption? None Information not available 06/19/2017 What Is Your Occupation? RETIRED Information not available 08/31/2017 Mammogram 07/14/2016 Information no t available 06/30/2017 DEXA 07/14/2016 Information no t available 06/30/2017 BMI Addressed 08/31/2017 Information not available 08/31/2017 Marital Status Informatio n not available 08/31/2017 What Was The Date Of Your Most Recent Tobacco Screening? 09/29/2017 Information not available 12/05/2018 Seat Belts Used Routinely Yes Information not available 06/30/2017 Do You Use Sunscreen Routinely? Yes Information not available 06/30/2017 Sex: Unknown Functional Status Question Answer Note LastModified by Organization D etails LastModified Time Are you able to care for yourself? Yes Information n ot available 06/30/2017 Mental Status None recorded. Family History Relationship Description Onset Age of this Age Resolved Age Notes LastModified by Organization Details LastModified Time Father Malignant tumor of lung gmirabal Not available 2017 14:56:03 Mother Hypertensive disorder gmirabal Not available 2017 14:56:11 Mother Hyperlipidem ia gmirabal Not available 2017 14:56:33 Mother Diabetes mellitus gmirabal Not available 2017 14:56:52 Mother Hypothyroidi sm gmirabal Not available 2017 14:57:05 Medical History No medical history recorded. Gynecological HistoryNo gynecological history recorded. Obstetrics History GPAL:G 0 P 0 0 0 0 Past Encounters Encounter ID Performer Location Encounter Start Date Encounter Closed Date Diagnosis/Indication Diagnosis SNOMED-CT Code Diagnosis ICD10 Code Diagnosis Note [id number] Antonia De Leon MD OFFICE [address] [place] [address] 06/19/2017 14:50:04 06/19/2017 17:25:39 Hyperlipidemia 36359178 E78.5 Hypertensive disorder 38 637906 I10 Controlled . Continue current medication s Long-term drug therapy 855735336 Z79.899 Depressive disorder 3548 9007 F32.9 Hypoglycemia 228351621 E 16.2 [id number] Antonia De Leon MD OFFICE [address] [place] [address] 09/29/2017 09:39:56 09/29/2017 10:14:57 Angina pectoris 397867001 I20.9 coronary CTA w/FT Hypoglycemia 561314394 E 16.2 Hyperlipidemia 61778940 E78.5 Long-term drug therapy 724162472 Z79.899 Risk of ex posure to communicable disease 203234098 Z20.9 Screening for malignant neoplasm of colon 232064554 Z12.11 Macromastia 581793302 N6 2 Macromasti a [place] [id number] Antonia De Leon MD OFFICE [address] [place] [address] 01/29/2018 10:26:41 01/29/2018 15:00:46 Hypertensive disorder 72931955 I10 Controlled . Continue current medication s Hyperlipidemia 66847042 E78.5 Long-term drug therapy 256154641 Z79.899 Coronary arteriosclerosis in [place] artery 1465887581 107 I25.10 s/p CABG Hyperhomocysteinemia 419 579795 E72.11 Health Concerns Section Related Observation LastModified by Organization Detai ls LastModified Time None Recorded Concern Status LastModified by Organization Details LastModified Time None Recorded Advance Directives Directive N: Payers Encounter Date Sequence Insurance Name Policy Number Policy Hurtado Covered Member ID Hurtado Member ID Guarantor Name 06/19/2017 1 [employer] (MEDICARE REPLACEMENT/A DVANTAGE - PPO) Kelly Farris [id number] Kelly Farris 09/29/2017 1 [employer] (MEDICARE REPLACEMENT/A DVANTAGE - PPO) Kelly Farris [id number] Kelly Farris 01/29/2018 1 [employer] (MEDICARE REPLACEMENT/A DVANTAGE - PPO) Kelly Farris [id number] Kelly Farris Notes Date Note Type Note Provider Name and Address Organization Details Recorded Time 06/19/19 18 text/htm l Generic HPI TemplateReported bypatient.Notes:New patient here to establish care. New patient paperwork reviewed and discussed with patient. cough productive of yellow sputum. No fever; no SOBHyperlipidemiaReported bypatient.Control:usually well controlled; improving; at goal Compliance:compliant; compliant with diet; exercises Complications:no coronary artery disease; no peripheral artery disease; no cardiovascular diseaseHypertension F/UReported bypatient.Associated Symptoms:no dizziness; no lightheadedness; no chest pain; no shortness of breath; no palpitations; no edema; no calf pain with exertion Lifestyle:regular exercise; limiting/avoiding salt Medications:taking medications as directed; no side effects from medication Antonia De Leon MD [address] [place], [address], [facility] 06/19/2017 15:16:05 09/30/19 18 text/htm l Generic HPI TemplateReported bypatient.Notes:Having episodes where she gets pale, lightheaded, cold sweats and a pain that is retrosternal and slightly left chest that radiates to her back. She had been assuming it was low blood sugar, but has not been checking BS during episodes. She had not previously reported the chest pain to me. We did glucose tolerance test, insulin and abdominal MRi for same. Here for results. Has continued to have episodes. She is also interested in breast reduction surgery because her breasts are very large, her bras cause indentations and pain in the shoulder region, and she gets thoracic back pain Antonia De Leon MD [address] [facility] [place], [address], [facility] 09/29/2017 10:14:24 01/30/20 18 text/htm l Generic HPI TemplateReported bypatient.Notes:01/29/18: Due to sx below we ordered a coronary CTA-FFS. Had high degree stenosis. Underwent CABG. Here for f/u. Doing well 09/29/17: Having episodes where she gets pale, lightheaded, cold sweats and a pain that is retrosternal and slightly left chest that radiates to her back. She had been assuming it was low blood sugar, but has not been checking BS during episodes. She had not previously reported the chest pain to me. We did glucose tolerance test, insulin and abdominal MRi for same. Here for results. Has continued to have episodes. She is also interested in breast reduction surgery because her breasts are very large, her bras cause indentations and pain in the shoulder region, and she gets thoracic back painHyperlipidemiaReported bypatient.Type of hyperlipidemia:combined Duration:chronic Control:usually well controlled; improving; at goal Compliance:compliant; compliant with diet; exercises Complications:no peripheral artery disease; no cardiovascular disease;coronary artery diseaseHypertension F/UReported bypatient.Associated Symptoms:no dizziness; no lightheadedness; no chest pain; no shortness of breath; no palpitations; no edema; no calf pain with exertion Lifestyle:regular exercise; limiting/avoiding salt Medications:taking medications as directed; no side effects from medication Antonia De Leon MD [address] [place], [address], [facility] 01/29/2018 11:18:09 OBGyn Episode No OBEpisode recorded.
--- OUTSIDE RECORDS SUMMARY | 2024-07-29 16:51 | XMS_ITS | Clinical Summary ---
Author Organization [email or web address] Address [address] [place] [address] Care Team Providers Care Back Shoe Cutter Name Role Phone Chris Oseguera MD Primary Care Provider Source Comments [email or web address],non-owned Affiliates and Associated Physician Practices is amultiple site organization consisting of ambulatory clinics and hospital sitesin [place], [place], [place] and [place]. This disclosure is being madepursuant to the Care Everywhere program and may not contain all information available regarding this patient. Last updated 18.[email or web address] Allergies Active Allergy Reactions Criticality Noted Date [...] daily Active Cholecalciferol (vitamin D3) 1.25 MG (51151 UT) capsule TAKE 1 CAPSULE BY MOUTH ONE TIME PER WEEK 01/09/2023 Active vitamin D, ergocalciferol, (Drisdol) 1.25 MG (32961 UT) capsule TAKE 1 CAPSULE EVERY WEEK [...] 2 DAYS 02/19/2023 Active Cholecalciferol 1.25 MG (29823 UT) Take 50,000 Units by mouth 01/09/2023 [...] TAB DAILY FOR 5 DAYS 02/06/2023 Active Family History Medical History Relation Name Comments Cancer - Other Brother Cancer - Other Father Diabetes - Type 2 Mother Heart Failure Mother Relation Name Status Comments Brother Father Mother Social History [...] Comments Blood Pressure 128/72 04/12/2023 2:49 PM [facility] [employer] Pulse 92 04/12/2023 2:49 PM [facility] [employer] Temperature 36.2 C (97.2 F) 04/12/2023 2:49 PM [facility] [employer] Respiratory Rate 12 02/28/2023 7:13 PM CDT Oxygen Saturation 97% 04/12/2023 2:49 PM [facility] [employer] Inhaled Oxygen Concentration - - Weight 84.4 kg (186 lb) 04/12/2023 2:49 PM [facility] [employer] Height 162.6 cm (5' 4 ) 04/12/2023 2:49 PM [facility] [employer] Body Mass Index 31.93 04/12/2023 2:49 PM [facility] [employer] Plan of Treatment Health Maintenance Due Date Last Done Comments BONE DENSITY TESTING 1950 HEPATITIS C SCREENING 04/26/1966 DTAP/TDAP/TD VACCINES (1 - Tdap) 1967 PNEUMOCOCCAL VACCINE 50+ (1 of 1 - PCV) 1998 ZOSTER VACCINE (1 of 2) 1998 Respiratory Syncytial Virus (RSV) Vaccine Pt: or over 60 yrs (1 - 1-dose 75+ series) 2023 COVID-19 VACCINE ( - 2023-2 5 season) 2024 INFLUENZA VACCINE (#1) 2024 02/20/2006 DEPRESSION SCREENING 05/15/2024 MEDICARE AWV CALENDAR YEAR 2024 HEPATITIS B VACCINE Aged Out No longe r eligible based on patient's age to complete this topic HIB VACCINE Aged Out No longer eligi ble based on patient's age to complete this topic HPV VACCINE Aged Out No longer eligi ble based on patient's age to complete this topic MENINGOCOCCAL (Group B) VACC INE SHARED DECISION-MAKING Aged Out No longer eligibl e based on patient's age to complete this topic MENINGOCOCCAL GROUPS A/C/Y/W VACCINE Aged Out No longer eligible b ased on patient's age to complete this topic Care Teams Back Shoe Cutter Relationship Specialty Start Date End Date Chris Oseguera MD [address] [facility] [address] [place] [address] PCP - General 04/20/22
--- OUTSIDE RECORDS SUMMARY | 2024-07-29 16:51 | XMS_ITS | Encounter Summary ---
Author Organization [facility] YOGI Hernández [facility] Address [address] [place] [address] Care Team Providers Care Ground Water Contractor Name Role Phone Unavailable Primary Care Provider Unavailabl e Reason for Referral * Laboratory Services (Routine) - Open Specialty Diagnoses / Procedures Referred By Jc t Referred To Contact Diagnoses Essential thrombocytosis (CMS/HCC) Procedures JAK2 MUTATION Joe Bland MD [address] [place] [id number] Phone: tel: fax: Referral ID Status Reason Start Date Expiration Date Visits Re quested Visits Authorized [id number] Open 07/29/2024 08/29/2025 1 1 Reason for Visit * Reason Comments Establish Care Encounter Details Date Type Department Care Team ([facility] st Contact Info) Description 07/29/2024 1:30 PM CDT Office Visit [facility] Oncology and Hematology - [place] [address] [place] [address] [address] [place] [address] Joe Bland MD [address] [place] [address] Essential thrombocytosis (CMS/HCC) (Primary Dx) Social History Tobacco Use Types Packs/Day Years Used Date Smoking Tobacco: Never Smokeless Tobacco: Never Tobacco Cessation:Counseling Given: Not Answered Alcohol Use Standard Drinks/Week Comments Never 0 (1 standard drink = 0.6 oz pur e alcohol) Comments Unknown Sex and Gender Information Value Date Recorded Sex Assigned at Not on file Legal Sex Female 1:32 PM 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 Problem list There is no problem list on file for this patient. Previous TREATMENT ? Measurable Disease ? Reason for Visit Kelly Farris is a 74 y.o. female who was referred for consultation for erythrocytosis and thrombocytosis. History of present illness Patient is a pleasant 74-year-old female with history of coronary artery disease status post coronary artery bypass grafting x 2 in 2017 along with history of cardiac ablation for the irregular heart rate, hypothyroidism, fatty liver, hyperlipidemia referred to me for elevated hemoglobin and platelet count. She has been dealing with some dizziness and vertigo along with intermittent headaches for last couple of months duration. She denies any history of lung disease including COPD andsleep apnea. She denies any history of smoking. She does have some shortness of breath and dyspnea on exertion. She denies any weight changes. There are no history of a stroke and other blood clots. Her labs from April 2024 showed hemoglobin of 16.3 with hematocrit of 50 and platelet of 428,000.She has no other new complaints. Past Medical History Past Medical History: Diagnosis Date Depression Diabetes mellitus (CMS/HCC) Diverticulosis of colon Hyperlipidemia Hypertension Surgical History Past Surgical History: Procedure Laterality Date HX BREAST REDUCTION 2022 HX CATARACT REMOVAL 2022 HX CHOLECYSTECTOMY 1992 HX EAR SURGERY ear drum repair HX HEART SURGERY Double Bypass 2017 HX HEART SURGERY Heart Ablation 2023 HX HIP RESURFACING 2010 HX PARTIAL HYSTERECTOMY 1992 HX SHOULDER SURGERY 2015 HX TUBAL LIGATION Medications Current Outpatient Medications Medication Sig Dispense Refill atorvastatin (LIPITOR) 80 mg tablet Take 80 mg by mouth daily. metoprolol succinate (TOPROL XL) 25 mg Extended Release 24 hour tablet Take 25 mg by mouth daily. chlorthalidone (HYGROTON) 25 mg tablet Take 25 mg by mouth daily. cholecalciferol 1,250 mcg (50,000 unit) Capsule Take 50,000 Units by mouth every 7 days. nitroglycerin (NITROSTAT) 0.4 mg Tablet, Sublingual Place 0.4 mg under tongue every 5 minutes as needed. pantoprazole (PROTONIX) 40 mg Tablet, Delayed Release (E.C.) Take 40 mg by mouth daily. venlafaxine (EFFEXOR XR) 150 mg Extended Release 24 hour capsule Take 150 mg by mouth daily. escitalopram oxalate (LEXAPRO) 10 mg tablet Take 10 mg by mouth daily. Unithroid 50 mcg tablet Take 50 mcg by mouth daily. No current facility-administered medications for this visit. Allergies Allergies Allergen Reactions Codeine Hives, Nausea and Vomiting, Other (See Comments) and Unknown Reaction: Hives, GI upset, Reaction: Hives, GI upset, Penicillins Hives, Nausea and Vomiting, Other (See Comments) and Unknown Reaction: Hives, GI upset, Reaction: Hives, GI upset, Adhesive Rash Immunizations: There is no immunization history on file for this patient. Family History Family History Problem Relation Name Age of Onset Lung Cancer Father Heart Disease Mother Diabetes Mother Liver Cancer Brother Heart Disease Brother No Known Problems Brother Diabetes Brother No Known Problems Sister No Known Problems Child No Known Problems Child Social History Social History Tobacco Use Smoking status: Never Smokeless tobacco: Never Substance Use Topics Alcohol use: Never Review of Systems Constitutional: Patient did not mention fever; no night sweats; no anorexia; no weight loss; no fatique NEENT: Patient did not mention headache; no change in vision; no change in hearing; no sore throat;no dysphagia Respiratory: Patient did not mention shortness of breath; no pleuritic chest pain; no cough; no hemoptysis Cardiac: Patient did not mention cardiac-like chest pain; no palpitations; no orthopnea; no PND; noDOE Breasts: Patient did not mention tenderness; no masses GI: Patient did not mention abdominal pain; no nausea; no vomiting; no diarrhea; no hematochezia; no melena : Patient did not mention dysuria; no frequency; no hesitancy; no hematuria 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 No signs of infection or swelling. Eyes: PERRL, conjunctiva normal HEENT: Atraumatic, external ears normal, nose normal, oropharynx moist, no pharyngeal exudates. no sinus tenderness Neck- normal range of motion, no tenderness, supple Respiratory: No respiratory distress, normal breath sounds, no rales, no wheezing Cardiovascular: Normal rate, normal rhythm, no murmurs, no gallops, no rubs GI: Soft, nondistended, normal bowel sounds, nontender, no splenomegaly, no hepatomegaly, no mass, no rebound, no guarding : No costovertebral angle tenderness Musculoskeletal: No edema, no tenderness, no deformities. Back- no tenderness Integument: Well hydrated, no rash, Digits and nails inspection normal Lymphatic: No lymphadenopathy noted Neurologic: Alert & oriented x 3, CN 2-12 normal, normal motor function, normal sensory function, no focal deficits noted Psychiatric: Speech and behavior appropriate ? labs No results found for this or any previous visit (from the past 24 hours). Labs from April 26, 2024 showed WBC 7.4 hemoglobin 16.3 hematocrit 50 platelet 428,000 neutrophils 59% lymphocyte 32% Pathology ? Imaging & Other Studies Performance Status? Assessment / Plan: ? Erythrocytosis and thrombocytosis. Patient is a pleasant 74-year-old female without any history of smoking and COPD. She has a history of coronary artery disease status post coronary arterybypass grafting in 2017, hypothyroidism, hyperlipidemia and fatty liver. She denies any history of sleep apnea and hormone therapy. She has no previous history of thromboembolic events including stroke and other blood clots. She has a history of coronary artery disease. I have reviewed the labs anddiscussed the differential diagnosis of erythrocytosis and thrombocytosis with the patient. Thrombocytosis could be secondary to primary polycythemia with JAK2 mutation positive. I will order the workup that will include CBC with differential, CMP, erythropoietin level, C- reactive protein, sedimentation rate, ferritin and JAK2 mutation. She will start baby aspirin 81 mg daily. I discussed the treatment as well. I will see her back in 2 weeks to discuss further. I have answered all the questionsto patient and the daughter satisfaction. Hyperlipidemia. Patient is on Lipitor. Hypertension. She is on metoprolol. Hypothyroidism. Patient is on chlorthalidone. Thank you very much for allowing me to participate in Kelly Farris's evaluation and management. Please feel free to contact if I can be of any further assistance in your patient???s care requiring hematology or oncology evaluation. Sincerely, ? ? Joe Bland M.D. cell TOBACCO COUNSELING She is not a tobacco/nicotine user. Joe Bland MD ,07/29/2024 2:19 PM ? Total time spent 60 minutes, two third of the total time spent counseling patient [id number]. CC:?Sumit Osgeuera MD documented in this encounter Plan of Treatment Upcoming Encounters Date Type Department Care Team (Late st Contact Info) Description 08/14/2024 1:00 PM CDT Office Visit [facility] Oncology and Hematology - [place] [address] [place] [address] Joe Bland MD [address] [facility] [address] [place] [address] Scheduled Orders Name Type Priority Associated Diagnoses Orde r Schedule CBC WITH DIFFERENTIAL Lab Stat Essential thrombocytosis (CMS/HCC) Expected: 07/29/2024, Expires: 07/29/2025 COMPREHENSIVE METABOLIC PANEL Lab Stat Essential thrombocytosis (CMS/HCC) Expected: 07/29/2024, Expires: 07/29/2025 C-REACTIVE PROTEIN Lab Routine Essential thrombocytosis (CMS/HCC) Expected: 07/29/2024, Expires: 07/29/2025 ERYTHROPOIETIN LEVEL Lab Routine Essential thrombocytosis (CMS/HCC) Expected: 07/29/2024, Expires: 07/29/2025 FERRITIN Lab Routine Essential thrombocytosis (CMS/HCC) Expected: 07/29/2024, Expires: 07/29/2025 SEDIMENTATION RATE Lab Routine Essential thrombocytosis (CMS/HCC) Expected: 07/29/2024, Expires: 07/29/2025 JAK2 MUTATION Lab Routine Essential thrombocytosis (CMS/HCC) Expected: 07/29/2024, Expires: 07/29/2025 documented as of this encounter Visit Diagnoses Diagnosis Essential thrombocytosis (CMS/HCC)- Primary Essential thrombocythemia documented in this encounter
--- OUTSIDE RECORDS SUMMARY | 2024-07-29 16:51 | XMS_ITS | Clinical Summary ---
Author Organization [facility] Address [address] [place] [address] Care Team Providers Care Repossession Agent Name Role Phone Ashish Paulino MD Primary Care Provider + Ashish Paulino MD Unavailable [phone] Allergies Active Allergy Reactions Criticality Noted Date [...] (10/30/2020): Added automatically from request for surgery [id number] Fracture of upper arm 02/02/2016 Fracture, scapula 01/27/2016 Surgical History Surgery Date Site/Laterality Comments CHOLECYSTECTOMY 05/15/1992 - 05/14/1993 TUBAL LIGATION 05/15/1991 - 05/14/1992 TYMPANOPLASTY 05/15/1988 - 05/14/1989 Right SMALL INTESTINE SURGERY 05/15/2003 - 05/14/2004 EYE SURGERY 01/14/2020 - 02/12/2020 Right cataracts CORONARY ARTERY BYPASS GRAFT 11/20/2017 SHOULDER SURGERY HIP SURGERY Medical History Medical History Date Comments Irritable bowel syndrome Hypercholesteremia Hypertension IBS (irritable bowel syndrome) Depression Family History Medical History Relation Name Comments Cancer Father Family history of malignant neoplasm - (Added by NIKIA Conv) Arthritis Mother Family history of arthritis - (Added by TW Conv) Diabetes Mother Family history of diabetes mellitus - (Added by TW Conv) Heart disease Mother Family history of cardiac disorder - (Added by TW Conv) Hypertension Mother Family history of hypertension - (Added by TW Conv) Alcohol abuse Other Clotting disorder Other Mental illness Other Relation Name Status Comments Father Mother Other Social History Tobacco Use Types Packs/Day Years [...] on file 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 Gender Identity Not on file Sexual Orientation Not on file Obstetrics History Last Filed Vital Signs Vital Sign Reading [...] 02/18/2023 5:00 PM CDT Plan of Treatment Health Maintenance Due Date Last Done Comments Depression Screening 1950 Hepatitis C Screening 1950 Osteoporosis Screening-Bone Density Scan 1950 DTaP/Tdap/Td Vaccine (1 - Tdap) 1959 Hepatitis B Screening 1966 Well Visit 65+ 2013 Pneumococcal vaccine 65+ (2 of 2 - PPSV23) 02/24/2022 02/24/2021 Covid-19 Vaccine ( season) 2024, 01/05/2021 Influenza Vaccine (#1) 2024 02/20/2006 Fall Risk Assessment 02/20/2024 02/19/2023 Zoster Vaccine Completed 12/27/2023, 07/03/2023 Insurance MEDICARE SOLUTIONS MEDICARE SOLUTIONS [employer] MEDICARE MEDICARE Care Teams Repossession Agent Relationship Specialty Start Date End Date Ashish Paulino MD [address] [address] PCP - General Internal Medicine 02/18/23 Ashish Pualino MD [address] [address] 02/18/23
--- OUTSIDE RECORDS SUMMARY | 2024-07-29 16:51 | XMS_ITS | Clinical Summary ---
Author Organization [facility] Address [address] [place] [address] Phone Care Team Providers Care Power Washer Name Role Phone Ashish Paulino MD Primary Care Provider [phone] Allergies Active Allergy Reactions Criticality Noted Date Comments Codeine Hives,Vomiting 02/07/2019 Penicillins Hives,Vomiting 02/07/2019 Medications atorvastatin (LIPITOR) 20 MG Tablet Take 20 mg by mouth daily. Active venlafaxine (EFFEXOR-XR) 150 MG CAPSULE SR 24 HR Take 150 mg by mouth daily. Active chlorthalidone (HYGROTON) 25 MG TabletIndicatio ns:1/2 a tab Take 25 mg by mouth daily. Indications: 1/2 a tab Active fenofibrate 160 MG Tablet Take 160 mg by mouth daily. Active Aspirin 81 MG Tablet Take 81 mg by mouth daily. Active nitroGLYCERIN (NITROSTAT) 0.4 MG SL Tablet 0.4 mg by Sublingual route every 5 minutes as needed. 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 02/07/2019 Syncope and collapse 02/07/2019 Migraine with aura 02/07/2019 Acute focal neurological deficit 02/07/2019 Hypertension Hypercholesteremia Depression Family History Medical History Relation Name Comments Cancer Father Cancer Mother Congestive Heart Failure Mother Diabetes Mother Relation Name Status Comments Father Mother Social History Tobacco Use Types Packs/Day Years Used Date Smoking Tobacco: Never Smokeless Tobacco: Never Alcohol Use Standard Drinks/Week Comments Not Currently 0 (1 standard drink = 0.6 oz pur e alcohol) PHQ-2 Answer Date Recorded PHQ-2 Score 0 02/08/2019 Comments Unknown Sex and Gender Information Value Date Recorded Sex Assigned at Not on file Legal Sex Female 5:41 PM CDT Gender Identity Not on file Sexual Orientation Not on file Last Filed Vital Signs Vital Sign Reading Time Taken Comments Blood Pressure 115/62 02/08/2019 4:10 PM CDT Pulse 70 02/08/2019 5:01 AM CDT Temperature 36.6 C (97.9 F) 02/08/2019 4:10 PM CDT Respiratory Rate 20 02/08/2019 4:10 PM CDT Oxygen Saturation 92% 02/08/2019 7:59 AM CDT Inhaled Oxygen Concentration - - Weight 86.2 kg (190 lb) 02/08/2019 1:00 PM CDT Height 162.6 cm (5' 4 ) 02/07/2019 5:47 PM CDT Body Mass Index 32.61 02/07/2019 5:47 PM CDT Plan of Treatment Health Maintenance Due Date Last Done Comments DEXA Bone Density 1950 Hepatitis C Virus (HCV) Screening 1950 TdaP Immunization 1948 Pneumococcal Immunization (5 0+ years) (1 of 2 - PCV) 1967 Colonoscopy 1993 Colorectal Cancer Screening 1993 Cologuard 1998 Immunochemical Fecal Occult Blood 1998 Zoster Immunization (1 of 2) 1998 Respiratory Syncytial Virus (RSV) Immunization (Adult) (1 - 1-dose 75+ series) 2023 Influenza Immunization (#1) 2024 SARS-COV-2 Immunization ( - 2023- season) 2024 01/26/2021, 01/05/2021 Hepatitis B Immunization Aged Out No longer eligible based on patient's age to complete this topic Meningococcal Immunization (ACWY) Aged Out No longer eligible b ased on patient's age to complete this topic Rotavirus Immunization Aged Out No lo nger eligible based on patient's age to complete this topic Insurance MEDICARE C [employer] Advance Directives * Full Code (Latest Code Status on File) Date Activated Date Inactivated Comments 02/07/2019 8:34 PM 02/08/2019 9:01 PM CPR-Full Trevor atment: FULL ARREST: Attempt Resuscitation/CPR wit intubation and mechanical ventilation. PRE-ARREST: Use entire range of life support measures to stabilize the patient. Care Teams Power Washer Relationship Specialty [place] [address] [facility] [address] [place] [id number] PCP - General General Surgery 02/07/19
--- OUTSIDE RECORDS SUMMARY | 2024-07-29 16:51 | XMS_ITS | CONTINUITY OF CARE DOCUMENT ---
Author Name elias griffin Address Unknown Organization [facility] Address [address] [place] [address] Phone [phone] Care Team Providers Care Medical Data Analyst Name Role Phone Meño FRANCO, Gela Unavailable OMAR CHI MD Unavailable ALON FRANCO, OMAR Unavailable PROBLEMS Condition Status Date Provider Notes Prediabetes active Pan Rahman Essential Hypertension active Gela Wilder MD CAD s/p CABGLima to LAD, SVG to OM1 active Gela Wilder MD Hyperlipidemia - likely fami lial hypercholesterolemia active Pan Rahman Family History of Hypertension: completed - Gela Wilder MD Dyspnea on exertion--echo ef 65%, 12/2019 active Gela Wilder MD PVC's 11% on holter - s/p Ab lation with Dr Max in 11/2020 active Gela Wilder MD Shortness of breath active Gela Wilder MD Nausea active Gela Wilder MD Fatigue active Gela Wilder MD Dizziness active Jose Banks Chest pain- fixed defect str ess nuc 2022 active Jose Banks ENCOUNTERS Date Type Provider Location Encounter Diag nosis - In-person encounter Office Visit Gela Wilder MD [facility] - In-person encounter Office Visit Gela Wilder MD [facility] Hyperlipidemia - likely familial hypercholesterolemia - In-person encounter Office Visit Gela Wilder MD [facility] Chest pain- fixed defect stress nuc 2023Dizziness - In-person encounter Office Visit Gela Wilder MD [facility] - In-person encounter Office Visit Gela Wilder MD [facility] - In-person encounter Office Visit Gela Wilder MD [facility] Dyspnea on exertion--echo ef 65%, 12/2019 - In-person encounter Office Visit Gela Reeder Office PVC's 11% on holter - s/p Ablation with Dr Max in hortness of breathNauseaFatigue - In-person encounter Office Visit Bonnie Max MD [facility] - In-person encounter Office Visit Gela Marinelli Office PVC's 11% on holter - s/p Ablation with Dr Max in 11/2020 - In-person encounter Office Visit Gela Wilder MD [facility] - In-person encounter Office Visit Gela Wilder MD [facility] - In-person encounter Office Visit Gela Wilder MD [facility] - [facility] Family History of Hypertension:Dyspnea on exertion--echo ef 65%, 12/2019 - In-person encounter Office Visit Gela Wilder MD [facility] - In-person encounter Office Visit Gela Wilder MD [facility] Chest pain- fixed defect stress nuc 2022 - In-person encounter Office Visit Gela Wilder MD [facility] CAD s/p CABGLima to LAD, SVG to UE2Eyulu pain- fixed defect stress nuc 2022 VITAL SIGNS Date Observation Value Provider Body Mass Index (Ratio) 31.92 kg/m2 Rui Wilder MD blood pressure, diastolic 85 mm[Hg] [facility], [facility] 112 mm[Hg] [facility], oximetry 86 % [facility] pulse rate 77 /min [facility] respiratory rate E&M 12 /min [facility] weight E&M 186 [lb_av] [facility] height E&M 64 [in_i] [facility] blood pressure, cuff size regular andreyKaiser Hayward Body Mass Index (Ratio) 31.58 kg/m2 Rui Wilder MD blood pressure, diastolic 83 mm[Hg] [facility], systolic 115 mm[Hg] [facility], oximetry 96 % [facility] pulse rate 87 /min [facility] rate E&M 12 /min [facility] weight E&M 184 [lb_av] [facility] height E&M 64 [in_i] [facility] blood pressure, cuff size regular andreyKaiser Hayward Body Mass Index (Ratio) 32.51 kg/m2 Rui Wilder MD pulse rate 88 /min Zeeshan Shine oxygen saturation, oximetry 94 % Zeeshan Shine weight E&M 189.4 [lb_av] Zeeshan Shine Body Mass Index (Ratio) 33.12 kg/m2 Rui Wilder MD blood pressure, diastolic 66 mm[Hg] St sheryl Figueroa blood pressure, systolic 123 mm[Hg] Chloe Figueroa oxygen saturation, oximetry 92 % Inessa Henry pulse rate 77 /min Inessa Henry respiratory rate E&M 18 /min Inessa Viramontes moises weight E&M 193 [lb_av] Inessa Henry height E&M 64 [in_i] Inessa Henry Body Mass Index (Ratio) 33.12 kg/m2 Rui Wilder MD blood pressure, diastolic 89 mm[Hg] Renay minor Newton blood pressure, systolic 110 mm[Hg] Fernando lyons [place] oxygen saturation, oximetry 96 % Latonya Carlson pulse rate 95 /min Latonya viramontes weight E&M 193 [lb_av] Latonya viramontes blood pressure, cuff size large Renay minor [place] respiratory rate E&M 16 /min Hollie bryant [place] height E&M 64 [in_i] Latonya viramontes Body Mass Index (Ratio) 32.95 kg/m2 Rui Wilder MD blood pressure, diastolic 80 mm[Hg] Sa ra Mccall blood pressure, systolic 120 mm[Hg] Mima a Mccall oxygen saturation, oximetry 97 % Maddison Mccall respiratory rate E&M 16 /min Maddison Si ms pulse rate 64 /min Maddison Mccall blood pressure, cuff size regular Sa ra Mccall weight E&M 192 [lb_av] Maddison Mccall height E&M 64 [in_i] Maddison Mccall blood pressure, diastolic 83 mm[Hg] Li nkLogic blood pressure, systolic 109 mm[Hg] Roula kLogic blood pressure, diastolic 83 mm[Hg] Ca therine Wei blood pressure, systolic 109 mm[Hg] Cat herine Wei oxygen saturation, oximetry 95 % Jenna Wei pulse rate 67 /min Jenna Lincroft respiratory rate E&M 14 /min Catheri ne Wei blood pressure, cuff size regular Ca therine Wei height E&M 64 [in_i] Jenna Lincroft Body Mass Index (Ratio) 31.41 kg/m2 Taew on Kennedy blood pressure, diastolic 70 mm[Hg] Li nkLogic blood pressure, systolic 140 mm[Hg] Roula kLogic blood pressure, resting No Ankush emma Robertsford blood pressure, diastolic 70 mm[Hg] dago Robertsford blood pressure, systolic 140 mm[Hg] She candi Robertsford pulse rate 65 /min Sofy awad respiratory rate E&M 20 /min Shazia Robertsford oxygen saturation, oximetry 98 % Sofy Tomlinson weight E&M 183 [lb_av] Sofy Roberts awad height E&M 64 [in_i] Sofy Roberts awad Body Mass Index (Ratio) 31.24 kg/m2 Rui Wilder MD blood pressure, cuff size regular Cy ntamya Pepe blood pressure, diastolic 70 mm[Hg] Cy nthia Pepe blood pressure, systolic 118 mm[Hg] Viri thiradhika Cantu oxygen saturation, oximetry 96 % Lawanda Pepe respiratory rate E&M 16 /min Lawanda Cantu pulse rate 71 /min Lawanda Campbel l weight E&M 182 [lb_av] Lawanda Campbel l height E&M 64 [in_i] Lawanda Tolubel l blood pressure, diastolic 53 mm[Hg] Ni cholas Lambros blood pressure, systolic 116 mm[Hg] Wallace holas Lambros Body Mass Index (Ratio) 30.89 kg/m2 Rui Wilder MD oxygen saturation, oximetry 97 % Chastity Dana blood pressure, diastolic 72 mm[Hg] Ch astity Dana blood pressure, systolic 120 mm[Hg] Jannie stity Dana pulse rate 85 /min Chastity Dana respiratory rate E&M 16 /min Chastit y Dana weight E&M 180 [lb_av] [facility] height E&M 64 [in_i] Chastity Dana height E&M 64 [in_i] [facility] Body Mass Index (Ratio) 33.12 kg/m2 Rui Wilder MD blood pressure, diastolic 80 mm[Hg] [facility], systolic 122 mm[Hg] Deidra john Marshall oxygen saturation, oximetry 98 % [facility] respiratory rate E&M 16 /min [facility] pulse rate 82 /min [facility] weight E&M 193 [lb_av] [facility] height E&M 64 [in_i] [facility] Body Mass Index (Ratio) 32.61 kg/m2 Rui Wilder MD blood pressure, cuff size large Cr memo Eubanks blood pressure, diastolic 60 mm[Hg] Cr memo Eubanks blood pressure, systolic 120 mm[Hg] Cry stal Raimundo oxygen saturation, oximetry 98 % Shireen Eubanks respiratory rate E&M 17 /min Shireen Eubanks pulse rate 80 /min Shireen wilburn blood pressure, resting Yes Agnes jimbo Eubanks height E&M 64 [in_i] Shireen wilburn weight E&M 190 [lb_av] Shireen wilburn ALLERGIES Allergy Name Onset Date Reaction Criticality Status JARDIANCE Low Criticality active PENICILLIN High Criticality active CODEINE High Criticality active RESULTS Date Observation Value Provider Reference Range Interpretation Location pro brain natriuretic peptide 280 pg/mL [facility] 0-301 ferritin, serum 238 ng/mL [facility] 15-150 High lipase, serum 29 U/L [facility] 14-85 iron saturation percent, serum 31 % [facility] 15-55 iron, serum 101 ug/dL [facility] 27-139 iron binding capacity, unsaturated 229 ug/dL [facility] 621-516 2439/01/ 13 iron binding capacity, total 330 ug/dL [facility] 144-072 3133/01/ 13 hemoglobin A1C, blood, as % of total hemoglobin 6.3 % [facility] 4.8-5.6 High lipoprotein, beta, serum, point, quantitative, calculated 84 mg/dL [facility] 0-99 HDL cholesterol, serum 55 mg/dL [facility] >39 triglyceride, serum, random 90 mg/dL [facility] 0-149 cholesterol, serum 156 mg/dL [facility] 907-158 0587/01/ 13 bacteria, urine microscopy None seen [facility] None seen/Few hyaline casts, urine None seen [facility] None seen epithelial cells, urine 0-10 [facility] 0 - 10 RBC, Urine None seen /hpf [facility] 0 - 2 WBC urine on microscopy 0-5 /hpf [facility] 0 - 5 urinalysis, microscopic examination See below: [facility] nitrate, urine Negative [facility] Negative urobilinogen, urine, semiquantitative (dipstick) 1.0 [facility] 0.2-1.0 bilirubin, urine Negative [facility] Negative hemoglobin, urine, by dipstick Negative [facility] Negative ketones, urine, by test strip Negative [facility] Negative glucose, urine Negative [facility] Negative protein, urine, semiquantitative (dipstick) Trace [facility] Negative/Tra ce leukocyte esterase, urine, by dipstick Trace [facility] Negative Abnormal appearance, urine Clear [facility] Clear urine color Yellow [facility] Yellow pH, urine, semiquantitative 6.5 [facility] 5.0-7.5 specific gravity, body fluid 1.027 [facility] 1.005-1.030 basophil count, absolute 0.1 x10E3/uL [facility] 0.0-0.2 Eosinophil Absolute Count 0.1 X10E3/UL [facility] 0.0-0.4 monocyte count, blood, automated 0.6 X10E3/UL [facility] 0.1-0.9 lymphocyte count, blood, automated 2.8 X10E3/UL [facility] 0.7-3.1 Absolute Neutrophils 5.4 X10E3/UL [facility] 1.4-7.0 basophils as percent of blood leukocytes 1 % [facility] Not Estab. eosinophils as percent of blood leukocytes 2 % [facility] Not Estab. monocytes as percent of blood leukocytes 7 % [facility] Not Estab. lymphocytes as percent of blood leukocytes 31 % [facility] Not Estab. neutrophils as percent of blood leukocytes 59 % [facility] Not Estab. platelet count 421 X10E3/UL [facility] 680-182 1974/01/ 13 red blood cell distribution width 12.3 % [facility] 11.7-15.4 mean corpuscular hemoglobin concentration, RBC 32.7 G/DL [facility] 31.5-35.7 mean corpuscular hemoglobin, RBC 29.5 pg [facility] 26.6-33.0 mean corpuscular volume, RBC 90 fL [facility] 79-97 hematocrit, blood 43.7 % [facility] 34.0-46.6 hemoglobin, blood 14.3 g/dL [facility] 11.1-15.9 erythrocyte (RBC) count 4.84 X10E6/UL [facility] 3.77-5.28 leukocyte count, blood 9.0 X10E3/UL [facility] 3.4-10.8 alanine aminotransferase (SGPT), serum 29 1/L [facility] 0-32 aspartate aminotransferase (SGOT), serum 29 1/L [facility] 0-40 alkaline phosphatase, serum 95 1/L [facility] 44-121 bilirubin, serum, total 0.7 mg/dL [facility] 0.0-1.2 albumin/globulin ratio, serum 1.7 [facility] 1.2-2.2 globulin, serum 2.5 [facility] 1.5-4.5 albumin, serum 4.3 g/dL [facility] 3.7-4.7 protein, total, serum 6.8 g/dL [facility] 6.0-8.5 calcium, serum 9.5 mg/dL [facility] 8.7-10.3 carbon dioxide, venous blood 27 mmol/L [facility] 20-29 chloride, serum 103 mmol/L [facility] 96-106 potassium, serum 3.8 mmol/L [facility] 3.5-5.2 sodium, serum 142 mmol/L [facility] 746-294 0504/01/ 13 urea nitrogen/creatinine ratio, serum 21 [facility] 12-28 eGFR if 94 mL/min/{1.7 3_m2} [facility] >59 eGFR if not 82 mL/min/{1.7 3_m2} [facility] >59 creatinine, serum 0.73 mg/dL [facility] 0.57-1.00 urea nitrogen, blood 15 mg/dL [facility] 8-27 blood glucose, random 102 mg/dL [facility] 65-99 High magnesium, serum 2.1 mg/dL [facility] 1.6-2.3 pro brain natriuretic peptide 427 pg/mL [facility] 0-301 High free thyroxine index 1.6 [facility] 1.2-4.9 triiodothyronine resin uptake 24 % [facility] 24-39 thyroxine, serum, total 6.8 ug/dL [facility] 4.5-12.0 thyroid stimulating hormone, serum 3.180 u[IU]/mL [facility] 0.450-4.500 activated partial thromboplastin time (aPTT) 28 s [facility] 24-33 prothrombin time (patient) 10.3 s [facility] 9.1-12.0 international normalized ratio (INR) 1.0 [facility] 0.9-1.2 platelet count 378 X10E3/UL [facility] 621-812 2097/06/ 19 red blood cell distribution width 12.4 % [facility] 11.7-15.4 mean corpuscular hemoglobin concentration, RBC 32.9 G/DL [facility] 31.5-35.7 mean corpuscular hemoglobin, RBC 29.8 pg [facility] 26.6-33.0 mean corpuscular volume, RBC 91 fL [facility] 79-97 hematocrit, blood 43.1 % LinkLog 34.0-46.6 hemoglobin, blood 14.2 g/dL [facility] 11.1-15.9 erythrocyte (RBC) count 4.76 X10E6/UL [facility] 3.77-5.28 leukocyte count, blood 7.1 X10E3/UL [facility] 3.4-10.8 alanine aminotransferase (SGPT), serum 21 1/L [facility] 0-32 aspartate aminotransferase (SGOT), serum 30 1/L [facility] 0-40 alkaline phosphatase, serum 71 1/L [facility] 48-121 bilirubin, serum, total 0.5 mg/dL [facility] 0.0-1.2 albumin/globulin ratio, serum 1.4 [facility] 1.2-2.2 globulin, serum 3.0 [facility] 1.5-4.5 albumin, serum 4.1 g/dL [facility] 3.7-4.7 protein, total, serum 7.1 g/dL [facility] 6.0-8.5 calcium, serum 9.8 mg/dL [facility] 8.7-10.3 carbon dioxide, venous blood 23 mmol/L [facility] 20-29 chloride, serum 105 mmol/L [facility] 96-106 potassium, serum 4.8 mmol/L [facility] 3.5-5.2 sodium, serum 141 mmol/L [facility] 668-524 1542/06/ 19 urea nitrogen/creatinine ratio, serum 19 [facility] 12-28 eGFR if 71 mL/min/{1.7 3_m2} [facility] >59 eGFR if not 62 mL/min/{1.7 3_m2} [facility] >59 creatinine, serum 0.93 mg/dL [facility] 0.57-1.00 urea nitrogen, blood 18 mg/dL [facility] 8-27 blood glucose, random 91 mg/dL [facility] 65-99 prothrombin time (patient) 9.7 s [facility] 9.0-11.5 Normal international normalized ratio (INR) 1.0 [facility] Normal mean platelet volume 10.2 fL [facility] 7.5-12.5 Normal platelet count 415 THOUSAND/UL [facility] 140-400 High red blood cell distribution width 12.4 % [facility] 11.0-15.0 Normal mean corpuscular hemoglobin concentration, RBC 32.6 G/DL [facility] 32.0-36.0 Normal mean corpuscular hemoglobin, RBC 29.8 pg [facility] 27.0-33.0 Normal mean corpuscular volume, RBC 91.5 fL [facility] 80.0-100.0 Normal hematocrit, blood 44.2 % [facility] 35.0-45.0 Normal hemoglobin electrophoresis, blood 14.4 [facility] 11.7-15.5 Normal erythrocyte (RBC) count 4.83 MILLION/UL [facility] 3.80-5.10 Normal leukocyte (white blood cells) count, blood 6.9 THOUSAND/UL [facility] 3.8-10.8 Normal alanine aminotransferase (SGPT), serum 27 1/L [facility] 6-29 Normal aspartate aminotransferase (SGOT), serum 26 1/L [facility] 10-35 Normal alkaline phosphatase, serum 88 1/L [facility] 37-153 Normal bilirubin, serum, total 0.7 mg/dL [facility] 0.2-1.2 Normal albumin/globulin ratio, serum 1.7 (calc) [facility] 1.0-2.5 Normal globulins, serum, total 2.6 G/DL (CALC) [facility] 1.9-3.7 Normal albumin, serum 4.3 g/dL [facility] 3.6-5.1 Normal protein, total, serum 6.9 g/dL [facility] 6.1-8.1 Normal calcium, serum 10.0 mg/dL [facility] 8.6-10.4 Normal carbon dioxide, venous blood 30 mmol/L [facility] 20-32 Normal chloride, serum 103 mmol/L [facility] 98-110 Normal potassium, serum 3.8 mmol/L [facility] 3.5-5.3 Normal sodium, serum 140 mmol/L [facility] 135-146 Normal urea nitrogen/creatinine ratio, serum 16 (calc) [facility] 6-22 Normal Estimated Glomerular Filtration Rate (calc) 61 mL/min/{1.7 3_m2} [facility] > OR = 60 Normal creatinine, serum 1.06 mg/dL [facility] 0.60-0.93 High urea nitrogen, blood 17 mg/dL [facility] 7-25 Normal blood glucose, random 103 mg/dL [facility] 65-139 Normal cholesterol, non-HDL, total 143 MG/DL (CALC) [facility] <130 High cholesterol/HDL ratio, serum, percent 3.8 (calc) [facility] <5.0 Normal LDL cholesterol, serum 116 MG/DL (CALC) [facility] High triglyceride, serum, fasting 158 mg/dL [facility] <150 High HDL cholesterol, serum 51 mg/dL [facility] > OR = 50 Normal cholesterol, serum 194 mg/dL [facility] <200 Normal HISTORY OF MEDICATION USE Medication Status Instructions Dates Provider Indications Com ments atorvastatin 80 mg tablet active Take 1 tablet by mouth once daily Pan Rahman levothyroxine 50 mcg tablet active Angela Lyon Zofran 4 mg tablet completed Take 1 tablet by mouth every six hours as needed for nausea and/or vomiting 2 - 9 Angela Lyon pantoprazole 40 mg tablet,delayed release (DR/EC) active Take 1 tablet by mouth once a day 2 Gela Wilder MD Eliquis 5 mg tablet completed 1 tablet by mouth twice a day 8 - 2 Kenneth Benavides Toprol XL 25 mg tablet extended release 24 hr active 1 tablet by mouth every night 4 Gela Wilder MD Zetia 10 mg tablet completed Take 1 tablet by mouth once a day 1 - 2 Get Degroot RN atorvastatin 40 mg tablet completed Take 1 tablet by mouth once a day 1 - 3 Get Degroot RN ranolazine 1,000 mg tablet extended release 12 hr completed 1 tablet by mouth twice a day 8 - 2 Adama Rodriguez FENOFIBRATE 160 MG ORAL TABLET completed TAKE ONE TAB ONCE DAILY 7 - 8 Gela Wilder MD nitroglycerin 0.4 mg tablet, sublingual active [address]ACE 1 TABLET UNDER TONGUE EVERY 5 MINS, UP TO 3 DOSES NEEDED FOR CHEST PAIN 6 Jose Banks aspirin 81 mg tablet,delayed release (DR/EC) completed Take 1 tablet by mouth once a day - 2 Gela Wilder MD chlorthalidone 25 mg tablet active Take 0.5 tablet by mouth once a day Adama Rodriguez Effexor XR 150 mg capsule,extended release 24hr active Take 1 capsule by mouth once a day Adama Rodriguez LIPITOR 20 MG ORAL TABLET completed take one tablet by mouth once daily - 1 Gela Wilder MD SOCIAL HISTORY Date Observation Value Provider smoking status Never smoker Jose Banks smoking status Never smoker Pan Rahman smoking status Never smoker Jose Banks social history E&M S moking History: P michi has never smoked. Jose Banks social history reviewed E&M revi ewed - no changes required Jose Banks smoking status Never smoker Inessa Figueroa number of grandchildren Gela Lyon smoking status Never smoker Latonya Higginbotham and social history reviewed E&M revi ewed - no changes required Angela Lyon social history E&M Smoking Histo ry: Michelle borden has never smoked. Angela Lyon social history E&M S moking History: Michelle borden has never smoked. Gela Wilder MD social history reviewed E&M revi ewed - no changes required Gela Wilder MD smoking status Never smoker Maddison Stefany smoking status Never smoker Jenna wilburn number of grandchildren Bonnie Benavides social history reviewed E&M revi ewed - no changes required Kenneth Benavides social history E&M S moking History: Michelle borden has never smoked. Pan Rahman smoking status Never smoker Pan Rahman social history reviewed E&M revi ewed - no changes required Pan Rahman smoking status Never smoker Marie tapia social history E&M S moking History: Michelle borden has never smoked. Marie Veronica social history reviewed E&M revi ewed - no changes required Marie Veronica smoking status Never smoker Trey laureano social history E&M S moking History: Michelle borden has never smoked. Trey Montes De Oca social history reviewed E&M revi ewed - no changes required Trey Montes De Oca social history E&M S moking History: Michelle borden has never smoked. Gela Wilder MD smoking status Never smoker Gela Wilder MD social history reviewed E&M revi ewed - no changes required Gela Wilder MD social history E&M S moking History: Michelle borden has never smoked. Pan Rahman social history reviewed E&M revi ewed - no changes required Pan Rahman smoking status Never smoker Melania Reilly social history reviewed E&M revi ewed - no changes required Gela Wilder MD social history E&M S moking History: Michelle borden has never smoked. Gela Wilder MD number of grandchildren Gela Wilder MD Nohmei ledesma Kwong smoking status Never smoker Bobby Linton vida social history E&M S moking History: Michelle borden has never smoked. Gela Wilder MD social history reviewed E&M revi ewed - no changes required Gela Wilder MD smoking status Never smoker Shireen Rogers ams FUNCTIONAL STATUS Date Observation Value Provider HRA, CV Assess/Plan, Angina (inactive) Management Plan continue current therapy Jose Ahmedzai HRA, CV Assess/Plan, Angina (inactive) Management Plan continue current therapy Pan Josiah HRA, CV Assess/Plan, Angina (inactive) Management Plan continue current therapy Jose Ahmedzaandrey HRA, CV Assess/Plan, Angina (inactive) Management Plan continue current therapy Jose Ahmedzaandrey HRA, CV Assess/Plan, Angina (inactive) Management Plan continue current therapy Angela Lyon HRA, CV Assess/Plan, Angina (inactive) Management Plan continue current therapy Gela Wilder MD HRA, CV Assess/Plan, Angina (inactive) Management Plan continue current therapy Jose Butlerzaandrey HRA, CV Assess/Plan, Angina (inactive) Management Plan continue current therapy Kenneth Benavides HRA, CV Assess/Plan, Angina (inactive) Management Plan continue current therapy Pan Rahman HRA, CV Assess/Plan, Angina (inactive) Management Plan continue current therapy Marie Veronica HRA, CV Assess/Plan, Angina (inactive) Management Plan continue current therapy Pan Chaset FAMILY HISTORY Family Member Condition Mother Family History of Hy pertension: Mother Family History of Di abetes: Full Brother Family History of Di abetes: INSURANCE PROVIDERS Payer name Policy type / Coverage type [place] red republican ID [employer] Other [employer] MEDICARE BERT PPO Medicare [id number] 600 ADVANCE DIRECTIVES Name Date DISCUSSED - NO DECISION MADE TREATMENT PLAN Date Name Performer [id number],S, Jose Nunezmedza i [id number],S, Jose Nunezmedza i [id number],S, Jose Nunezmedza i [id number],S, Jose Nunezmedza i [id number],S, Jose Ahmedza i [id number],W, Jose Nunezmedza i [id number],S, Rupali Sanchez [id number],S, Rupali Sanchez [id number],S, Rupali Albertis [id number],S, Rupali Sanchez [id number],S, Rupali Albertis [id number],S, Gela Wilder MD [id number],S, Gela Wilder MD [id number],S, Gela Wilder MD [id number],S, Gela Wilder MD [id number],S, Gela Wilder MD [id number],B, Gela Wilder MD [id number],W, Gela Wilder MD [id number],S, Gela Wilder MD [id number],W, Gela Wilder MD [id number],W, Gela Wilder MD [id number],S, Gela Wilder MD [id number],S, Gela Wilder MD [id number],C, H er updated medication list for this problem includes: Zetia 10 Mg Oral Tablet (Ezetimibe) ..... One tab. daily Atorvastatin Calcium 40 Mg Oral Tablet (Atorvastatin calcium) ..... One tab daily Yordanraya Kennedy [id number],C, B P today: 140/70 P rior BP: 118/70 (09/07/2020) Labs Reviewed: C reat: 1.06 (01/14/2020) C hol: 194 (01/14/2020) HDL: 51 (01/14/2020) LDL: 116 MG/DL (CALC) (01/14/2020) T (01/14/2020) Her updated medication list for this problem includes: Toprol Xl 25 Mg Oral Tablet Extended Release 24 Hour (Metoprolol succinate) ..... One tab daily at night Aspirin Adult Low Dose 81 Mg Oral Tablet Delayed Release (Aspirin) ..... Take one tablet by mouth once daily Chlorthalidone 25 Mg Oral Tablet (Chlorthalidone) ..... Take 1/2 tablet by mouth once daily Yordanraya Kennedy [id number],S, H er updated medication list for this problem includes: Toprol Xl 25 Mg Oral Tablet Extended Release 24 Hour (Metoprolol succinate) ..... One tab daily at night Ranolazine Er 1000 Mg Oral Tablet Extended Release 12 Hour (Ranolazine) ..... One tab by mouth daily Nitroglycerin 0.4 Mg Sublingual Tablet Sublingual (Nitroglycerin) ..... As needed for chest pain Aspirin Adult Low Dose 81 Mg Oral Tablet Delayed Release (Aspirin) ..... Take one tablet by mouth once daily Kenneth Benavides [id number],C, n ot candidate for class 1c medications due to known CAD she has only occasional chest pain well controlled with nitro cath ASSESSMENT: 1 . Complete revasculaization of LAD and circumflex territories with a patent RAND-LAD and SVG-OM 2 . Mild apical hypokinesis with EF of 50% Kenneth Benavides [id number],W, O rders: A BLATION w/ Anesthesia (*) C T Cardiac with contrast (Pre-Ablation) ([id number]) Reviewed recent monitor. 11.58% PVC burden over two days, bigeminy and trigeminy. Symptomatic with 'flutter-like' palpitations constantly. Would recommend her for EP study and ablation at this time. Discussed the indications, alternatives and risk of complications from the procedure with the patient who expressed understanding. not candidate for class 1c medications due to known CAD Her updated medication list for this problem includes: Toprol Xl 25 Mg Oral Tablet Extended Release 24 Hour (Metoprolol succinate) ..... One tab daily at night Ranolazine Er 1000 Mg Oral Tablet Extended Release 12 Hour (Ranolazine) ..... One tab by mouth daily Nitroglycerin 0.4 Mg Sublingual Tablet Sublingual (Nitroglycerin) ..... As needed for chest pain Aspirin Adult Low Dose 81 Mg Oral Tablet Delayed Release (Aspirin) ..... Take one tablet by mouth once daily Kenneth Benavides Cardiology:This visi t has been a part of the consistent, comprehensive, and ongoing management of the chronic medical condition(s) listed above for the patient. Gela Wilder MD Cardiology Gela Wilder MD Cardiology: H er updated medication list for this problem includes: Toprol Xl 25 Mg Tablet Extended Release 24 Hr (Metoprolol succinate) ..... 1 tablet by mouth every night Chlorthalidone 25 Mg Tablet (Chlorthalidone) ..... Take 0.5 tablet by mouth once a day Gela Wilder MD Cardiology Gela Wilder MD Cardiology Gela Wilder MD Cardiology: H er updated medication list for this problem includes: Nitroglycerin 0.4 Mg Tablet, Sublingual (Nitroglycerin) ..... Place 1 tablet under tongue every 5 mins, up to 3 doses as needed for chest pain Toprol Xl 25 Mg Tablet Extended Release 24 Hr (Metoprolol succinate) ..... 1 tablet by mouth every night Gela Wilder MD Cardiology Gela Wilder MD Cardiology [facility] Pan [facility]man Cardiology:This visi t has been a part of the consistent, comprehensive, and ongoing management of the chronic medical condition(s) listed above for the patient. [facility] Cardiology [facility] Pan Rahman Cardiology:This visi t has been a part of the consistent, comprehensive, and ongoing management of the chronic medical condition(s) listed above for the patient. Gela Wilder MD Cardiology: H er updated medication list for this problem includes: Nitroglycerin 0.4 Mg Tablet, Sublingual (Nitroglycerin) ..... Place 1 tablet under tongue every 5 mins, up to 3 doses as needed for chest pain Toprol Xl 25 Mg Tablet Extended Release 24 Hr (Metoprolol succinate) ..... 1 tablet by mouth every night [facility] Cardiology: H er updated medication list for this problem includes: Toprol Xl 25 Mg Tablet Extended Release 24 Hr (Metoprolol succinate) ..... 1 tablet by mouth every night Chlorthalidone 25 Mg Tablet (Chlorthalidone) ..... Take 0.5 tablet by mouth once a day [facility]: H er updated medication list for this problem includes: Toprol Xl 25 Mg Tablet Extended Release 24 Hr (Metoprolol succinate) ..... 1 tablet by mouth every night Chlorthalidone 25 Mg Tablet (Chlorthalidone) ..... Take 0.5 tablet by mouth once a day [facility]: H er updated medication list for this problem includes: Nitroglycerin 0.4 Mg Tablet, Sublingual (Nitroglycerin) ..... Place 1 tablet under tongue every 5 mins, up to 3 doses as needed for chest pain Toprol Xl 25 Mg Tablet Extended Release 24 Hr (Metoprolol succinate) ..... 1 tablet by mouth every night [facility]: O rders: C arotid Duplex Bilateral ([id number]) [facility] Gela Wilder MD Cardiology Gela Wilder MD Cardiology Gela Wilder MD Cardiology Gela Wilder MD Cardiology Gela Wilder MD Cardiology Gela Wilder MD Cardiology Gela Wilder MD Cardiology Gela Wilder MD Cardiology Gela Wilder MD Cardiology Gela Wilder MD Cardiology Gela Wilder MD Cardiology Gela Wilder MD Cardiology - 05: H er updated medication list for this problem includes: Zetia 10 Mg Oral Tablet (Ezetimibe) ..... One tab. daily Atorvastatin Calcium 40 Mg Oral Tablet (Atorvastatin calcium) ..... One tab daily Kenneth Benavides Cardiology - 05: B P today: 140/70 P rior BP: 118/70 (09/07/2020) Labs Reviewed: C reat: 1.06 (01/14/2020) C hol: 194 (01/14/2020) HDL: 51 (01/14/2020) LDL: 116 MG/DL (CALC) (01/14/2020) T (01/14/2020) Her updated medication list for this problem includes: Toprol Xl 25 Mg Oral Tablet Extended Release 24 Hour (Metoprolol succinate) ..... One tab daily at night Aspirin Adult Low Dose 81 Mg Oral Tablet Delayed Release (Aspirin) ..... Take one tablet by mouth once daily Chlorthalidone 25 Mg Oral Tablet (Chlorthalidone) ..... Take 1/2 tablet by mouth once daily Kenneth Benavides Cardiology - 05: H er updated medication list for this problem includes: Toprol Xl 25 Mg Oral Tablet Extended Release 24 Hour (Metoprolol succinate) ..... One tab daily at night Ranolazine Er 1000 Mg Oral Tablet Extended Release 12 Hour (Ranolazine) ..... One tab by mouth daily Nitroglycerin 0.4 Mg Sublingual Tablet Sublingual (Nitroglycerin) ..... As needed for chest pain Aspirin Adult Low Dose 81 Mg Oral Tablet Delayed Release (Aspirin) ..... Take one tablet by mouth once daily Kenneth Benavides Cardiology - 05: n ot candidate for class 1c medications due to known CAD she has only occasional chest pain well controlled with nitro cath ASSESSMENT: 1 . Complete revasculaization of LAD and circumflex territories with a patent RAND-LAD and SVG-OM 2 . Mild apical hypokinesis with EF of 50% Kenneth Benavides Cardiology - 05: O rders: A BLATION w/ Anesthesia (*) C T Cardiac with contrast (Pre-Ablation) ([id number]) Reviewed recent monitor. 11.58% PVC burden over two days, bigeminy and trigeminy. Symptomatic with 'flutter-like' palpitations constantly. Would recommend her for EP study and ablation at this time. Discussed the indications, alternatives and risk of complications from the procedure with the patient who expressed understanding. not candidate for class 1c medications due to known CAD Her updated medication list for this problem includes: Toprol Xl 25 Mg Oral Tablet Extended Release 24 Hour (Metoprolol succinate) ..... One tab daily at night Ranolazine Er 1000 Mg Oral Tablet Extended Release 12 Hour (Ranolazine) ..... One tab by mouth daily Nitroglycerin 0.4 Mg Sublingual Tablet Sublingual (Nitroglycerin) ..... As needed for chest pain Aspirin Adult Low Dose 81 Mg Oral Tablet Delayed Release (Aspirin) ..... Take one tablet by mouth once daily Kenneth Benavides TeleHealthJune 18 at 130 with PAWEL Wilder MD TeleHealthJune 18 at 130 with PAWEL Wilder MD TeleHealthJune 18 at 130 with PAWEL Rahman Cardiology follow up :Continue o n medications for HLD. [facility] Veronica Cardiology follow up :Continue on antihypertensives. BP control is satisfactory at 118/70 today. Marie Veronica Cardiology follow up :Today she reports connstant 'flutter-like' palpitations for the last 4 days. She believes personal stress is contributing to her symptoms. will order 48-hour holter monitor and discuss results with patient in one month. Marie Veronica Cardiology follow up :She underwent cardiac cath 01/2020 that showed complete revasc of LAD and circ territories with a patent RAND- LAD and SVG - OM grafts. L main had a 40% distal stenosis, LAD with diffuse disease 40% in the mid portion, and L circ with a 90% mid stenosis. Marie Veronica Telehealth f/up 6 months [facility] f/up 6 months [facility] f/up 6 months [facility] f/up 6 months [facility]: H er updated medication list for this problem includes: Zetia 10 Mg Oral Tablet (Ezetimibe) ..... One tab. daily Atorvastatin Calcium 40 Mg Oral Tablet (Atorvastatin calcium) ..... One tab daily [facility]:Reports B P taken at home today was 116/ 53. P rior BP: 120/72 (01/10/2020) Labs Reviewed: C reat: 1.06 (01/14/2020) C hol: 194 (01/14/2020) HDL: 51 (01/14/2020) LDL: 116 MG/DL (CALC) (01/14/2020) T (01/14/2020) Her updated medication list for this problem includes: Toprol Xl 25 Mg Oral Tablet Extended Release 24 Hour (Metoprolol succinate) ..... One tab daily at night Aspirin Adult Low Dose 81 Mg Oral Tablet Delayed Release (Aspirin) ..... Take one tablet by mouth once daily Chlorthalidone 25 Mg Oral Tablet (Chlorthalidone) ..... Take 1/2 tablet by mouth once daily [facility]: T he following medications were removed from the medication list: Fenofibrate 160 Mg Oral Tablet (Fenofibrate) ..... Take one tab once daily Her updated medication list for this problem includes: Lipitor 20 Mg Oral Tablet (Atorvastatin calcium) ..... Take one tablet by mouth once daily Gela Wilder MD Cardiology:Patient i s having episodes of CP that occur in the morning with associated diaphoresis. will schedule heart cath. stress test is largely normal Gela Wilder MD Cardiology: B P today: 120/72 P rior BP: 122/80 (01/08/2019) Gela Wilder MD needs rega stress, echo, labs, t joyce f/u Pan Rahman needs rega stress, echo, labs, t joyce f/u Pan Rahman needs rega stress, echo, labs, t joyce f/u Pan Rahman needs rega stress, echo, labs, t joyce f/u Pan Rahman needs rega stress, echo, labs, t joyce f/u [facility] Gela Wilder MD Cardiology Gela Wilder MD Cardiology Gela Wilder MD Cardiology Gela Wilder MD Cardiology Gela Wilder MD Cardiology Gela Wilder MD Cardiology Gela Wilder MD Cardiology Gela Wilder MD Cardiology Gela Wilder MD Date Name Monitor - Telemetry (Mobile Cardiac) Carotid Duplex Bilat eral Stress Regadenoson Stress Regadenoson Stress Regadenoson URINALYSIS, REFLEX LIPASE Covid Antibody IgA ( LC) Covid Antibody IgM ( LC) Covid Antibody Igg HEMOGLOBIN A1c PROBNP, N TERMINAL LIPID PANEL COMPREHENSIVE METABO LIC PANEL, W/EGFR IRON AND TOTAL IRON BINDING CAPACITY FERRITIN CBC (INCLUDES DIFF/P LT) COVID19 nasal swab ( LC) CT Cardiac with cont rast (Pre-Ablation) Partial Thromboplast in Time, Activated PROTHROMBIN TIME WIT H INR MAGNESIUM CBC (H/H, RBC, INDIC ES, WBC, PLT) PROBNP, N TERMINAL TSH, free T4, total T3 COMPREHENSIVE METABO LIC PANEL, W/EGFR CT Cardiac with cont rast (Pre-Ablation) ABLATION w/ Anesthes ia Holter Monitor 48 hr Cardiac Cath - L/R- [facility] Sleep Study Home PROTHROMBIN TIME WIT H INR CBC (H/H, RBC, INDIC ES, WBC, PLT) LIPID PANEL COMPREHENSIVE METABO LIC PANEL, W/EGFR Stress Regadenoson Complete Echo MAGNESIUM IRON AND TOTAL IRON BINDING CAPACITY FERRITIN CBC (INCLUDES DIFF/P LT) TSH, 3RD GENERATION W/REFLEX TO FT4 TSH, free T4, total T3 LIPID PANEL HEMOGLOBIN A1c COMPREHENSIVE METABO LIC PANEL, W/EGFR Complete Echo Stress Regadenoson Complete Echo HISTORY OF PROCEDURES Procedure Date Procedure Name Provider Procedure Notes S tatus Complex e/m visit add on Gela Wilder MD completed Complex e/m visit add on Gela Wilder MD completed Complex e/m visit add on Gela Wilder MD completed Complex e/m visit add on Gela Wilder MD completed EKG Gela Wilder MD completed EKG Gela Wilder MD completed EKG Gela Wilder MD completed Holter, 24 or 48 Gela Wilder MD com pleted EKG Gela Wilder MD completed EKG Gela Wilder MD completed Regadenoson, 4 units Gela Wilder MD completed Cardiolite, 2 units Gela Wilder MD completed SPECT Images Gela Wilder MD complet ed Stress EKG Gela Wilder MD completed Regadenoson, 4 units Gela Wilder MD completed Cardiolite, 2 units Gela Wilder MD completed SPECT Images Gela Wilder MD complet ed Stress EKG Gela Wilder MD completed EKG Gela Wilder MD completed
--- OUTSIDE RECORDS SUMMARY | 2024-07-29 16:51 | XMS_ITS | Patient Health Summary ---
Author Organization [facility] Address [address] [place] [address] Care Team Providers Care Memory Care Program Director Name Role Phone Chris Oseguera MD Primary Care Provider Note from [facility],non-owned Affiliates and Associated Physician Practices is amultiple site organization consisting of ambulatory clinics and hospital sitesin [place] and [place]. This disclosure is being madepursuant to the Care Everywhere program and may not contain all information available regarding this patient. Last updated 18.[facility] Allergies * Codeine(Urticaria,Other,Unknown,Vomiting) -High Criticality * Penicillins(Other,Nausea and/or Vomiting,Unknown,Vomiting) -High Criticality * Phenylpropanolamine-Aspirin(Palpitations) -Low Criticality * Hmg-Coa-R Inhibitors(Rash,Headache) -Medium Criticality,Inactive Medications * Be aware that medications may not be up to date on this document. Alwaysverify current medications with the patient. * venlafaxine XR 24hr (Effexor XR) 150 MG capsule(Started 06/30/2022) * chlorthalidone (Hygroton) 25 MG tablet(Started 05/24/2022) Take 1 (one) tablet by mouth once daily 1/2 tablet * metoprolol succinate XL 24hr (Toprol XL) 25 MG tablet(Started 12/01/2021) Take 1 (one) tablet by mouth once daily * nitroGLYCERIN (Nitrostat) 0.4 MG tablet Dissolve 1 (one) tablet under the tongue * pantoprazole EC (Protonix) 40 MG tablet(Started 05/05/2022) TAKE 1 TABLET BY MOUTH EVERY DAY NEEDED FOR 90 DAYS * escitalopram (Lexapro) 10 MG tablet Take 1 (one) tablet by mouth once daily * Cholecalciferol (vitamin D3) 1.25 MG (59671 UT) capsule(Started 01/09/2023) TAKE 1 CAPSULE BY MOUTH ONE TIME PER WEEK * vitamin D, ergocalciferol, (Drisdol) 1.25 MG (13790 UT) capsule(Started 10/05/2021) TAKE 1 CAPSULE EVERY WEEK BY ORAL ROUTE. * levothyroxine (Synthroid) 50 MCG tablet(Started 02/11/2023) * MAGNESIUM CITRATE PO * Turmeric, Curcuma Longa, * oxyCODONE (Oxy-Ir) 5 MG capsule(Started 02/28/2023) Take 1 (one) capsule by mouth every 6 hours as needed for Pain * ondansetron (Zofran) 4 MG tablet(Started 02/28/2023) Take 1 (one) tablet by mouth every 6 hours as needed for Nausea/Vomiting * aspirin (Aspirin) 81 MG chew tablet Take 1 (one) tablet by mouth once daily * atorvastatin (Lipitor) 20 MG tablet Take 2 (two) tablets by mouth once daily * cephalexin (Keflex) 500 MG capsule(Started 02/19/2023) TAKE 1 CAPSULE (500 MG TOTAL) BY MOUTH 4 TIMES A DAY FOR 2 DAYS * Cholecalciferol 1.25 MG (22961 UT)(Started 01/09/2023) Take 50,000 Units by mouth * ciprofloxacin (Cipro) 500 MG tablet(Started 02/09/2022) Take 1 (one) tablet by mouth * dicyclomine (Bentyl) 20 MG tablet(Started 12/30/2022) TAKE 1 TABLET BY MOUTH THREE TIMES A DAY FOR 1 MONTH * fenofibrate (Lofibra) 160 MG tablet Take 1 (one) tablet by mouth once daily * pantoprazole EC (Protonix) 40 MG tablet(Started 12/19/2022) Take 1 (one) tablet by mouth once daily as needed * predniSONE (Deltasone) 20 MG tablet(Started 02/06/2023) TAKE 2 TABLETS BY MOUTH DAILY FOR 5 DAYS AND 1 TAB DAILY FOR 5 DAYS Social History Tobacco Use Types Packs/Day Years [...] Comments Blood Pressure 128/72 04/12/2023 2:49 PM [employer] Pulse 92 04/12/2023 2:49 PM [employer] [employer] Temperature 36.2 C (97.2 F) 04/12/2023 2:49 PM [employer] [employer] Respiratory Rate 12 02/28/2023 7:13 PM CDT Oxygen Saturation 97% 04/12/2023 2:49 PM [employer] [employer] Inhaled Oxygen Concentration - - Weight 84.4 kg (186 lb) 04/12/2023 2:49 PM [employer] Height 162.6 cm (5' 4 ) 04/12/2023 2:49 PM [facility] Body Mass Index 31.93 04/12/2023 2:49 PM [facility] Procedures * MAGNESIUM BLOOD(Performed 03/06/2023) Performed for Macromastia * PHOSPHORUS BLOOD(Performed 03/06/2023) Performed for Macromastia * BASIC METABOLIC PANEL (CALCIUM TOTAL)(Performed 03/06/2023) Performed for Macromastia * CBC W AUTO DIFFERENTIAL(Performed 03/06/2023) Performed for Macromastia * CARDIAC RHYTHM STRIP ORDER(Performed 03/01/2023) * PATHOLOGY TISSUE EXAM (STL)(Performed 02/28/2023) Performed for Diagnosis unknown * AR BREAST REDUCTION(Performed 02/28/2023) * MAMMO BILAT SCREENING W BASILIO(Performed 08/17/2022) Performed for Macromastia Results * (ABNORMAL) CBC WITH DIFFERENTIAL (03/06/2023 9:38 AM CDT) WBC 9.1 3.5 - 10.5 10 3/uL 03/06/2023 10:01 AM CDT [facility] RBC 4.64 3.80 - 5.20 10 6/uL 03/06/2023 10:01 AM CDT [facility] Hemoglobin 13.8 12.0 - 15.6 g/dL 03/06/2023 10:01 AM [facility] Hematocrit 41.1 35.0 - 45.0 % 03/06/2023 10:01 AM [facility] MCV 88.6 80.7 - 98.3 fL 03/06/2023 10:01 AM [facility] MCH 29.7 26.7 - 34.0 pg 03/06/2023 10:01 AM [facility] MCHC 33.6 30.8 - 35.9 g/dL 03/06/2023 10:01 AM [facility] RDW-SD 43.1 36.0 - 50.0 fL 03/06/2023 10:01 AM [facility] RDW-CV 13.3 11.2 - 14.8 % 03/06/2023 10:01 AM [facility] Platelet Count 546(H) 150 - 400 10 3/uL 03/06/2023 10:01 AM [facility] MPV 9.1(L) 9.4 - 12.9 fL 03/06/2023 10:01 AM [facility] nRBC Absolute 0.00 0 10 3/uL 03/06/2023 10:01 AM [facility] nRBC Auto 0.0 0 /100 WBC 03/06/2023 10:01 AM [facility] Neutrophils % 58.8 35.0 - 70.0 % 03/06/2023 10:01 AM [facility] Lymphocytes % 31.5 20.0 - 43.0 % 03/06/2023 10:01 AM [facility] Monocytes % 6.1 5.0 - 13.0 % 03/06/2023 10:01 AM [facility] Eosinophils % 2.4 0.0 - 6.0 % 03/06/2023 10:01 AM [facility] Basophil % 0.8 0.0 - 2.0 % 03/06/2023 10:01 AM [facility] Neutrophils Absolute 5.33 1.60 - 7.00 10 3/uL 03/06/2023 10:01 AM [facility] Lymphocyte Absolute 2.86 1.10 - 3.90 10 3/uL 03/06/2023 10:01 AM [facility] Monocytes Absolute 0.55 0.26 - 1.07 10 3/uL 03/06/2023 10:01 AM [facility] Eosinophils Absolute 0.22 0.00 - 0.47 10 3/uL 03/06/2023 10:01 AM [facility] Basophils Absolute 0.07 0.00 - 0.08 10 3/uL 03/06/2023 10:01 AM [facility] Immature Granulocytes % 0.4 0.0 - 1.0 % 03/06/2023 10:01 AM [facility] Immature Granulocytes Absolute 0.04 03/06/2023 10:01 AM [facility] Blood BLOOD SPECIMEN / Unknown Lab Venipuncture / Unknown 03/06/2023 9:38 AM CDT 03/06/2023 9:54 AM T Britany Flood MD LAB - HEMATOLOGY OR DERABLES [facility] [address] [place] [address], [facility] [phone] * (ABNORMAL) BASIC METABOLIC PANEL (CALCIUM TOTAL) (03/06/2023 9:38 AM CDT) BUN 12 7 - 26 mg/dL 03/06/2023 10:26 AM [facility] Creatinine 0.77 0.56 - 0.96 mg/dL 03/06/2023 10:26 AM [facility] Sodium 139 136 - 145 mmol/L 03/06/2023 10:26 AM [facility] Potassium 2.9(L) 3.5 - 4.5 mmol/L 03/06/2023 10:26 AM [facility] Chloride 100 98 - 107 mmol/L 03/06/2023 10:26 AM [facility] CO2 26 22 - 29 mmol/L 03/06/2023 10:26 AM [facility] Glucose 135(H) 70 - 115 mg/dL 03/06/2023 10:26 AM [facility] Calcium 9.9 8.4 - 10.2 mg/dL 03/06/2023 10:26 AM [facility] Anion Gap 13 6 - 16 03/06/2023 10:26 AM [facility] BUN/Creatinine Ratio 16 7 - 23 03/06/2023 10:26 AM [facility] Osmolality Calculated 290 275 - 295 mOsm/kg 03/06/2023 10:26 AM [facility] eGFR by CKD-EPI 81(L) >=90 mL/min/1.7 3 m2 03/06/2023 10:26 AM [facility] Blood BLOOD SPECIMEN / Unknown Lab Venipuncture / Unknown 03/06/2023 9:38 AM CDT 03/06/2023 9:53 AM CDT Britany Flood MD LAB - CHEMISTRY ORD ERABLES [address] [address], [facility] [phone] * (ABNORMAL) PHOSPHORUS BLOOD (03/06/2023 9:38 AM CDT) Phosphorus 1.6(L) 2.9 - 5.1 mg/dL 03/06/2023 10:26 AM T [facility] Blood BLOOD SPECIMEN / Unknown Lab Venipuncture / Unknown 03/06/2023 9:38 AM CDT 03/06/2023 9:53 AM CDT Britany Flood MD LAB - CHEMISTRY ORD ERABLES [address] [address], [facility] [phone] * MAGNESIUM BLOOD (03/06/2023 9:38 AM CDT) Magnesium 1.7 1.6 - 2.6 mg/dL 03/06/2023 10:26 AM T [facility] Blood BLOOD SPECIMEN / Unknown Lab Venipuncture / Unknown 03/06/2023 9:38 AM CDT 03/06/2023 9:53 AM CDT Britany Flood MD LAB - CHEMISTRY ORD ERABLES [facility] [address] [place] [address], [facility] [phone] * CARDIAC RHYTHM STRIP ORDER (03/01/2023 8:19 PM CDT) Narrative 03/01/2023 8:19 PM CDT Ordered by an unspecified provider. Scanned Document CARDIAC SERVICES ORD ERABLES * PATHOLOGY TISSUE EXAM (STL) (02/28/2023 1:18 PM CDT) Case Report Surgical Pathology Report Case: [id number] Authorizing Provider: Britany Flood MD Collected: 02/28/2023 01:18 PM Ordering Location: [facility] Received: 03/01/2023 02:05 PM Pathologist: Margarita Urbina MD Specimens: A) - Breast Reduction, Right Breast Tissue B) - Breast Reduction, Left Breast Tissue C) - Breast Reduction, Left breast additional tissue from B 03/02/2023 3:49 PM CDT [facility] Final Diagnosis Breast, right, reduction mammoplasty: - Benign skin and breast tissue, 661 g - Patchy stromal fibrosis - Calcifications present Breast, left, reduction mammoplasty: - Benign skin and breast tissue, 932 g - Patchy stromal fibrosis - Calcifications present Breast, left, reduction mammoplasty: - Benign skin and breast tissue, 92 g - Patchy stromal fibrosis - Calcifications present KL 03/02/2023 3:49 PM CDT [facility] Gross Description Received in labeled with the patient's name, Kelly Farris, and r ight breast tissue is a 661 g, 30 x 12 x 4 cm aggregate of lobulated breast tissue and gee skin. The specimen is sectioned to show lobulated soft tissue admixed with fibrous tissue (approximately 15%). [employer] sections are submitted in A1-A3 with sections of skin in A1. Received in formalin labeled with the patient's name, gris Conley eft breast tissue is a 932 g, 34 x 15 x 5 cm fragment of lobulated breast tissue with overlying gee skin. The specimen is sectioned to show lobulated soft tissue admixed with fibrous tissue (approximately 15%). [employer] sections are submitted in B1-B3 with sections of skin in B1. Received in formalin labeled with the patient's name, gris Conley efwillie breast tissue is a 92 g, 12 x 7 x 3 cm aggregate of yellow-gee lobulated breast tissue. Sectioning through the specimen shows yellow-gee lobulated soft tissue admixed with fibrous tissue (approximately 10%). One fragment has an overlying portion of gee skin. [employer] sections are submitted in C1-C3 with a section of skin and C3. JI 03/02/2023 3:[address] [facility] Microscopic Description Histologic sections of the right breast tissue show areas of fibrosis and scattered calcifications. There is no evidence of malignancy. Histologic sections of the left breast tissue show areas of fibrosis and scattered calcifications. There is no evidence of malignancy. Histologic sections of the left breast tissue show areas of fibrosis and focal calcifications. There is no evidence of malignancy. KL 03/02/2023 3:[address] [facility] Disclaimer All histochemical and/or immunohistochemical results are interpreted with controls that demonstrate appropriate staining reactions before reporting results. Note on use of immunocytochemistry reagents: This test was developed and its performance characteristic determined by [facility], Department of Laboratory Medicine. It has not been cleared or approved by the U.S. Food and Drug Administration (FDA). The FDA has determined that such clearance or approval is not necessary. The test is used for clinical purpose. It should not be regarded as investigational or for research. This laboratory is certified to perform high complexity testing. The performance characteristics of the IHC/REGINA assays have been validated on formalin-fixed paraffin embedded tissues only. The assays have not been validated on decalcified tissues. Results should be interpreted with caution. 03/02/2023 3:[address] [facility] Embedded Images 03/02/2023 3:[address] [facility] Pathology/Cytology SPECIMEN FROM BREAST OBTAINED BY EXCISION / Unknown 02/28/2023 1:18 PM CDT 03/01/2023 2:05 PM CDT Miscellaneous samples (specimen) SPECIMEN FROM BREAST OBTAINED BY EXCISION / Unknown 02/28/2023 1:18 PM CDT 03/01/2023 2:05 PM CDT Miscellaneous samples (specimen) SPECIMEN FROM BREAST OBTAINED BY EXCISION / Unknown 02/28/2023 1:18 PM CDT 03/01/2023 2:05 PM CDT Britany Flood MD LAB - PATHOLOGY/CYT OLOGY ORDERABLES [facility] [address] [address] * MAMMO BILAT SCREENING W BASILIO (08/17/2022 3:28 PM CDT) Anatomical Region Laterality Modality Breast Bilateral Mammography 08/22/2022 2:42 PM CDT Impressions 08/22/2022 2:45 PM CDT : Annual screening mammography is recommended. OVERALL FINAL ASSESSMENT: BI-RADS Category 1: Negative. > Interpreting Provider: Bandar Torres MD on 08/22/2022 2:45 PM Narrative 08/22/2022 2:45 PM CDT EXAMINATION: BILATERAL DIGITAL SCREENING MAMMOGRAM AND BILATERAL BREAST TOMOSYNTHESIS HISTORY: Screening. COMPARISON: There is no prior mammogram available at the time of this dictation. The patient cannot recall where her prior mammogram was performed. TECHNIQUE: BILATERAL digital breast tomosynthesis (DBT) and synthetic 2D digital mammogram images were obtained (bilateral craniocaudal and mediolateral oblique projections) including computer aided detection (CAD.) BREAST PARENCHYMAL COMPOSITION:Category B: There are scattered areas of fibroglandular density. MAMMOGRAM FINDINGS: There is no suspicious finding in either breast. Britany Flood MD MAMMO ORDERABLES Care Teams Memory Care Program Director Relationship Specialty Start Date End Date Chris Oseguera MD [address] [address] [place] [address] PCP - General 04/20/22
[2024-07-29 16:55] LABS: Erythrocyte Sedimentation Rate 12 mm/hr (0-20)
== END 2024-07-29 14:15 | disposition home or self-care (01) ==
LOC: ANHLAB 14:15
PROVIDERS: Visit Provider Internal Medicine Hematology & Oncology
DX: D47.3 Essential (hemorrhagic) thrombocythemia (principal)
CPT/HCPCS: 36415; 80053; 81270; 82668; 82728; 85025; 85652; 86140

== ENCOUNTER 2025-02-17 13:03 | Outpatient (CLI) | payer MEDICARE, SELFPAY ==
--- OUTSIDE RECORDS SUMMARY | 2025-02-17 13:00 | XMS_ITS | Encounter Summary ---
Author Organization [facility] YOGI Hernández [facility] Address [address] [place] [address] Care Team Providers Care Brazer Electronic Name Role Phone Chris Oseguera MD Primary Care Provider Reason for Visit * Reason Comments Follow Up Encounter Details Date Type Department Care Team ([facility] st Contact Info) Description 02/17/2025 1:00 PM CDT Office Visit [facility] Oncology and Hematology - [place] [address] [facility] [address] [address] [place] [address] Joe Bland MD [address] [facility] [address] [place] [address] Essential thrombocytosis (Primary Dx) Social History Tobacco Use Types Packs/Day Years Used Date Smoking Tobacco: Never Smokeless Tobacco: Never Tobacco Cessation:Counseling Given: Not Answered Alcohol Use Standard Drinks/Week Comments Never 0 (1 standard drink = 0.6 oz pur e alcohol) Comments Unknown Sex and Gender Information Value Date Recorded Sex Assigned at Not on file Legal Sex Female 1:32 PM [employer] Gender Identity Not on file Sexual Orientation Not on file documented as of this encounter Last Filed Vital Signs Vital Sign Reading Time Taken Comments Blood Pressure 112/72 02/17/2025 1:35 PM CDT Pulse 77 02/17/2025 1:35 PM CDT Temperature 36.8 C (98.2 F) 02/17/2025 1:35 PM CDT Respiratory Rate 12 02/17/2025 1:35 PM CDT Oxygen Saturation 97% 02/17/2025 1:35 PM CDT Inhaled Oxygen Concentration - - Weight 73.3 kg (161 lb 9.6 oz) 02/17/2025 1:35 P M CDT Height - - Body Mass Index 27.74 07/29/2024 1:41 PM CDT documented in this encounter Plan of Treatment Scheduled Orders Name Type Priority Associated Diagnoses Orde r Schedule CBC WITH DIFFERENTIAL Lab Stat Essential thrombocytosis Expected: 02/17/2026, Expires: 05/18/2026 BASIC METABOLIC PANEL Lab Stat Essential thrombocytosis Expected: 02/17/2026, Expires: 05/18/2026 documented as of this encounter Visit Diagnoses Diagnosis Essential thrombocytosis- Primary Essential thrombocythemia documented in this encounter Care Teams Brazer Electronic Relationship Specialty Start Date End Date Chris Oseguera MD [address] [place] [address] [address] [place] [phone] PCP - General Internal Medicine 08/14/24 documented as of this encounter
[2025-02-17 13:20] LABS: Hematocrit 43.2 % (37.0-47.0); Hemoglobin 14.1 g/dL (12.0-15.0); Immature Granulocyte Percent A 0.2 % (0-0.5); Lymphocytes Absolute Auto 2.49 K/mm3 (0.9-3.2); Mean Corpuscular HGB Conc 32.6 g/dl (32-36); Mean Corpuscular Hemoglobin 29.8 pg (26-34); Mean Corpuscular Volume 91.3 fl (80-100); Nucleated Red Blood Cells Absolute Auto 0.000 K/mm3 (0.0-0.012); Nucleated Red Blood Cells Perc 0.0 % (0.0-0.2); Platelet Count Result 345 k/mm3 (150-375); Red Blood Count 4.73 M/mm3 (4.2-5.4); White Blood Count 6.6 K/mm3 (4.5-10.0)
[2025-02-17 13:23] LABS: Blood Urea Nitrogen 14 mg/dL (8-26); Carbon Dioxide 29 mmol/L (22-30); Chloride 100 mmol/L (98-109); Estimated Glomerular Filt Rate > 60; Glucose 104 mg/dL (70-105); Ionized Calcium (POC) 1.27 mmol/L (1.11-1.31); Potassium 3.7 mmol/L (3.5-4.9); Sodium 141 mmol/L (138-146)
--- OUTSIDE RECORDS SUMMARY | 2025-02-17 13:58 | XMS_ITS | Clinical Summary ---
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 Syncope [...] 1:00 PM CDT Height 162.6 cm (5' 4) 02/07/2019 5:47 PM CDT Body Mass Index 32.61 02/07/2019 5:47 PM CDT Plan of Treatment Health Maintenance Due Date Last Done Comments Hepatitis C Virus (HCV) Screening 1950 TdaP Immunization 1950 Pneumococcal Immunization (5 0+ years) (1 of 2 - PCV) 1967 Zoster Immunization (1 of 2) 1998 Medicare Initial AWV [id number] 05/15/2019 Respiratory Syncytial Virus (RSV) Immunization (Adult) (1 - 1-dose 75+ series) 2023 Influenza Immunization (#1) 2025 SARS-COV-2 Immunization (3 - 2024- season) 2025 01/26/2021, 01/05/2021 Hepatitis B Immunization Aged Out No longer eligible based on patient's age to complete this topic Human Papillomavirus (HPV) Immunization Aged Out No longer eligible b ased [...] measures to stabilize the patient. Care Teams Clinical Writer Relationship Specialty [place] [address] [facility] [address] [place] [id number] PCP - General General Surgery 02/07/19
--- OUTSIDE RECORDS SUMMARY | 2025-02-17 13:58 | XMS_ITS | Clinical Summary ---
Author Organization [facility] [employer] Address [address] [place] [address] Care Team Providers Care Pantry Cook Name Role Phone Chris Oseguera MD Primary Care Provider Source Comments [facility],non-owned Affiliates and Associated Physician Practices is amultiple site organization consisting of ambulatory clinics and hospital sitesin [place], [place], [place] and [place]. This disclosure is being madepursuant to the Care Everywhere program and may not contain all information available regarding this patient. Last updated 18.[facility] [employer] Allergies Active Allergy Reactions Criticality Noted Date [...] document. Alwaysverify current medications with the patient. venlafaxine XR 24hr (Effexor XR) 150 MG capsule 3 Active chlorthalidone (Hygroton) 25 MG tablet Take 1 (one) tablet by mouth once daily 1/2 tablet 3 Active metoprolol succinate XL 24hr (Toprol XL) 25 MG tablet Take 1 (one) tablet by mouth once daily 2 Active nitroGLYCERIN (Nitrostat) 0.4 MG tablet Dissolve 1 (one) tablet under the tongue Active pantoprazole EC (Protonix) 40 MG tablet TAKE 1 TABLET BY MOUTH EVERY DAY NEEDED FOR 90 DAYS 2 Active escitalopram (Lexapro) 10 MG tablet Take 1 (one) tablet by mouth once daily Active Cholecalciferol (vitamin D3) 1.25 MG (83079 UT) capsule TAKE 1 CAPSULE BY MOUTH ONE TIME PER WEEK 3 Active vitamin D, ergocalciferol, (Drisdol) 1.25 MG (96454 UT) capsule TAKE 1 CAPSULE EVERY WEEK BY ORAL ROUTE. 2 Active levothyroxine (Synthroid) 50 MCG tablet 3 Active MAGNESIUM CITRATE PO Active Turmeric, Curcuma Longa, Activ e oxyCODONE (Oxy-Ir) 5 MG capsuleIndicati ons:Macromastia Take 1 (one) capsule by mouth every 6 hours as needed for Pain 15 capsule 3 Active Additional Information Patient not taking.Reported on 04/12/2023 ondansetron (Zofran) 4 MG tablet Take 1 (one) tablet by mouth every 6 hours as needed for Nausea/Vomiting 5 tablet 3 Active Additional Information Patient not taking.Reported on 04/12/2023 aspirin (Aspirin) 81 MG chew tablet Take 1 (one) tablet by mouth once daily Active atorvastatin (Lipitor) 20 MG tablet Take 2 (two) tablets by mouth once daily Active cephalexin (Keflex) 500 MG capsule TAKE 1 CAPSULE (500 MG TOTAL) BY MOUTH 4 TIMES A DAY FOR 2 DAYS 3 Active Cholecalciferol 1.25 MG (87744 UT) Take 50,000 Units by mouth 3 Active ciprofloxacin (Cipro) 500 MG tablet Take 1 (one) tablet by mouth 2 Active dicyclomine (Bentyl) 20 MG tablet TAKE 1 TABLET BY MOUTH THREE TIMES A DAY FOR 1 MONTH 3 Active fenofibrate (Lofibra) 160 MG tablet Take 1 (one) tablet by mouth once daily Active pantoprazole EC (Protonix) 40 MG tablet Take 1 (one) tablet by mouth once daily as needed 3 Active predniSONE (Deltasone) 20 MG tablet TAKE 2 TABLETS BY MOUTH DAILY FOR 5 DAYS AND 1 TAB DAILY FOR 5 DAYS Active Family History Medical History Relation Name [...] = 0.6 oz pur e alcohol) Comments No Sex and Gender Information Value Date Recorded Sex Assigned at Female 08/07/2022 9:20 PM CDT Legal Sex Female 1:11 PM CDT Gender Identity Female 08/07/2022 9:20 PM CDT Sexual Orientation Straight 08/07/2022 9: 20 PM CDT Last Filed Vital Signs Vital Sign Reading Time Taken Comments Blood Pressure 128/72 04/12/2023 2:49 PM [employer] Pulse 92 04/12/2023 2:49 PM [employer] Temperature 36.2 C (97.2 F) 04/12/2023 2:49 PM [employer] Respiratory Rate 12 02/28/2023 7:13 PM CDT Oxygen Saturation 97% 04/12/2023 2:49 PM [employer] Inhaled Oxygen Concentration - - Weight 84.4 kg (186 lb) 04/12/2023 2:49 PM [employer] Height 162.6 cm (5' 4) 04/12/2023 2:49 PM [employer] Body Mass Index 31.93 04/12/2023 2:49 PM [employer] Plan of Treatment Health Maintenance Due Date Last Done Comments BONE DENSITY TESTING 1950 HEPATITIS C SCREENING 04/26/1966 DTAP/TDAP/TD VACCINES (1 - Tdap) 1967 PNEUMOCOCCAL VACCINE 50+ (1 of 1 - PCV) 1998 ZOSTER VACCINE (1 of 2) 1998 Respiratory Syncytial Virus (RSV) Vaccine Pt: or over 60 yrs (1 - 1-dose 75+ series) 2023 DEPRESSION SCREENING 05/15/2024 MEDICARE AWV CALENDAR YEAR 2024 COVID-19 VACCINE (1 - 2023-2 5 season) 2025 INFLUENZA VACCINE (#1) 2025 02/20/2006 HEPATITIS B VACCINE Aged Out No longe [...] patient's age to complete this topic Insurance AETNA AETNA AETNA MEDICARE ADV Care Teams Pantry Cook Relationship Specialty Start Date End Date Chris Oseguera MD [address] [address] PCP - General 04/20/22
--- OUTSIDE RECORDS SUMMARY | 2025-02-17 13:58 | XMS_ITS | Clinical Summary ---
Author Organization [facility] Address [address] [place] [address] Care Team Providers Care Joint Finisher Name Role Phone Ashish Paulino MD Primary Care Provider + Ashish Paulino MD Unavailable [phone] Allergies Active Allergy Reactions Criticality Noted Date [...] (10/30/2020): Added automatically from request for surgery [id number] Fracture of upper arm 02/02/2016 Fracture, scapula 01/27/2016 Encounters Date Type Department Care Team Description 01/29/2025 2:10 PM CDT Lab [facility] [address] [place] [address] from Last 3 Months Surgical History Surgery Date Site/Laterality Comments CHOLECYSTECTOMY [...] history of malignant neoplasm - (Added by TW Conv) Arthritis Mother Family history of arthritis [...] on file 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 Gender Identity Not on file Sexual Orientation [...] P M CDT Height 157.5 cm (5' 2) 02/18/2023 5:00 PM CDT Body Mass Index 36.13 02/18/2023 5:00 PM CDT Plan of Treatment Health Maintenance Due Date Last Done Comments Depression Screening 1950 Hepatitis C Screening 1950 Osteoporosis Screening-Bone Density Scan 1950 DTaP/Tdap/Td Vaccine (1 - Tdap) 1959 Hepatitis B Screening 1966 Well Visit 65+ 2013 Pneumococcal vaccine 65+ (2 of 2 - PCV20 or PCV21) 02/24/2022 02/24/2021 Fall Risk Assessment 02/20/2024 02/19/2023 Covid-19 Vaccine (3 - season) 2025, 01/05/2021 Influenza Vaccine (#1) 2025 02/20/2006 Breast Cancer Screening-Mammogram Discontinued 023 Zoster Vaccine Completed 12/27/2023, 07/03/2023 Procedures Procedure Name Priority Date/Time Associated Diagnosis Comments EGFR Routine 01/29/2025 2:14 PM CDT DIFFERENTIAL AUTO Routine 01/29/2025 2:1 4 PM CDT ALBUMIN CREATININE RATIO, URINE Routine 01/29/2025 2:14 PM CDT HEMOGLOBIN A1C Routine 01/29/2025 2:14 PM CDT VITAMIN D 25 HYDROXY Routine 01/29/2025 2:14 PM CDT LIPID PANEL Routine 01/29/2025 2:14 PM CDT T4, FREE Routine 01/29/2025 2:14 PM CDT THYROID FUNCTION CASCADE Routine 01/29/2025 2:14 PM CDT CBC WITH AUTO DIFFERENTIAL Routine 01/29/2025 2:14 PM CDT COMPREHENSIVE METABOLIC PANEL Routine 01/29/2025 2:14 PM CDT from Last 3 Months Results * eGFR (01/29/2025 2:14 PM CDT) eGFR 80 >=60 mL/min/1. 73 m2 Comment: Interpretive Data Reference Interval Normal >/= 90 mL/min/1.73m2 Mildly decreased* 60 - 89 mL/min/1.73m2 Mildly to moderately decreased 45 - 59 mL/min/1.73m2 Moderately to severely decreased 30 - 44 mL/min/1.73m2 Severely decreased 15 - 29 mL/min/1.73m2 Kidney Failure < 15 mL/min/1.73m2 *Relative to young adult level Estimated glomerular filtration rate is determined by the 2020 CKD-EPI equation recommended by the National Kidney Foundation (A Unifying Approach to GFR Estimation: Recommendations of the NKF-ASK Task Force on Reassessing the Inclusion of Race in Diagnosing Kidney Disease, JASN 2020). The CKD-EPI equation should not be used for patients with unstable renal function and has not been validated in children and those over 70. Current interpretive data was last reviewed 2021. Testing performed by: [address] [address] Blood 01/29/2025 2:14 PM CDT 01/29/2025 9:20 PM CDT us Helen Oseguera MD LAB BLOOD ORDERABLES Final Result TRACIE HENDRIX ([place]) 1 [facility] Department [place] [address] * Differential, auto (01/29/2025 2:14 PM CDT) Neutrophil abs 3.66 1.50 - 6.50 K/cumm Comment:Testing performed by : [address] [address] Imm gran abs 0.01 0.00 - 0.10 K/cumm TRACIE HENDRIX ([place]) Comment:Testing performed by : [address] [address] Lymphocyte abs 2.67 0.80 - 3.30 K/cumm TRACIE HENDRIX ([place]) Comment:Testing performed by : [address] [address] Monocyte abs 0.47 0.20 - 0.80 K/cumm [facility] ([place]) Comment:Testing performed by : [facility], [address] [place] [address]., [address] Eosinophil abs 0.11 0.00 - 0.50 K/cumm [facility] ([place]) Comment:Testing performed by : [facility], [address] [place] [address]., [address] Basophil abs 0.08 0.00 - 0.10 K/cumm [facility] ([place]) Comment:Testing performed by : [address] [address] Neutrophil pct 52.4 % [facility] ([place]) Comment: Interpretive Data Percent cell count reference ranges are not reported, since discordance with absolute values may lead to misinterpretation of CBC data. Current Interpretive Data was last revised on 2017. Testing performed by: [address] [address] Imm gran pct 0.1 % [facility] ([place]) Comment: Interpretive Data Percent cell count reference ranges are not reported, since discordance with absolute values may lead to misinterpretation of CBC data. Current Interpretive Data was last revised on 2017. Testing performed by: [address] [address] Lymphocyte pct 38.1 % [facility] ([place]) Comment: Interpretive Data Percent cell count reference ranges are not reported, since discordance with absolute values may lead to misinterpretation of CBC data. Current Interpretive Data was last revised on 2017. Testing performed by: [address] [address] Monocyte pct 6.7 % [facility] ([place]) Comment: Interpretive Data Percent cell count reference ranges are not reported, since discordance with absolute values may lead to misinterpretation of CBC data. Current Interpretive Data was last revised on 2017. Testing performed by: [address] [address] Eosinophil pct 1.6 % [facility] ([place]) Comment: Interpretive Data Percent cell count reference ranges are not reported, since discordance with absolute values may lead to misinterpretation of CBC data. Current Interpretive Data was last revised on 2017. Testing performed by: [address] [address] Basophil pct 1.1 % TRACIE HENDRIX ([place]) Comment: Interpretive Data Percent cell count reference ranges are not reported, since discordance with absolute values may lead to misinterpretation of CBC data. Current Interpretive Data was last revised on 2017. Testing performed by: [address] [address] Blood 01/29/2025 2:1 4 PM CDT 01/29/2025 2:15 PM CDT Helen Oseguera MD LAB BLOOD ORDERABLES Final Result TRACIE HENDRIX ([place]) 1 [facility] [place] [address] * Thyroid Function [place] (01/29/2025 2:14 PM CDT) Pathologist [facility] TSH 2.72 0.30 - 4.20 mcIUnit/mL Comment:Testing performed by : [address] [address] Blood 01/29/2025 2:14 PM CDT 01/29/2025 2:14 PM CDT Helen Oseguera MD LAB BLOOD ORDERABLES Final Result TRACIE HENDRIX ([place]) 1 [facility] [place] [address] * (ABNORMAL) CBC with auto differential (01/29/2025 2:14 PM CDT) Pathologist [facility] WBC 7.00 3.80 - 9.90 K/cumm Comment:Testing performed by : [address] [address] Hgb 13.8 11.9 - 15.5 g/dL TRACIE HENDRIX ([place]) Comment:Testing performed by : [address] [address] Hct 43.4 35.6 - 45.5 % [facility] ([place]) Comment:Testing performed by : [address], [address] Plt 357 150 - 400 K/cumm [facility] ([place]) Comment:Testing performed by : [address], [address] MPV 9.8 9.1 - 12.3 fL [facility] ([place]) Comment:Testing performed by : [facility], [address] [place] [address], [address] RBC 4.74 3.90 - 5.20 M/cumm [facility] ([place]) Comment:Testing performed by : [address], [address] MCV 91.6 81.3 - 96.4 fL [facility] ([place]) Comment:Testing performed by : [address], [address] MCH 29.1 27.1 - 33.3 pg [facility] ([place]) Comment:Testing performed by : [address], [address] MCHC 31.8(L) 32.3 - 35.7 g/dL [facility] ([place]) Comment:Testing performed by : [address], [address] RDW CV 13.3 11.1 - 14.9 % [facility] ([place]) Comment:Testing performed by : [address], [address] RDW SD 44.9 35.7 - 48.1 fL [facility] ([place]) Comment:Testing performed by : [address], [address] NRBC abs 0.00 0.00 - 0.01 K/cumm [facility] ([place]) Comment:Testing performed by : [address], [address] Blood 01/29/2025 2:14 PM CDT 01/29/2025 2:15 PM CDT Helen Oseguera MD LAB BLOOD ORDERABLES Final Result Performing Organization Address City/[facility]/ZIP Co de Phone Number TRACIE HENDRIX ([place]) 1 [facility] [place] [address] * Albumin Creatinine Ratio, Urine (01/29/2025 2:14 PM CDT) Albumin Ur <12.0 mg/L Comment: Interpretive Data No reference range established. Current interpretive data was last revised 2018. Testing performed by: [facility], [address] [place] [address]., [address] Creatinine Ur 150.8 mg/dL TRACIE HENDRIX ([place]) Comment: Interpretive Data No reference range established. Current interpretive data was last revised 2018. Testing performed by: [address] [address] Albumin Creatinine Ratio, Ur <8 1 - 29 mg/g TRACIE HENDRIX ([place]) Comment:Testing performed by : [address] [address] Urine 01/29/2025 2:14 PM CDT 01/29/2025 2:16 PM CDT Helen Oseguera MD LAB URINE ORDERABLES Final Result Performing Organization Address [facility] Co de Phone Number TRACIE HENDRIX ([place]) 1 [facility] [place] [address] * Vitamin D 25 hydroxy (01/29/2025 2:14 PM CDT) Vitamin D 25-OH 74 30 - 80 ng/mL Comment:Testing performed by : [address] [address] Blood 01/29/2025 2:14 PM CDT 01/29/2025 2:15 PM CDT Helen Oseguera MD LAB BLOOD ORDERABLES Final Result Performing Organization Address City/[facility] Co de Phone Number TRACIE HENDRIX ([place]) [address] [place] [address] * T4, free (01/29/2025 2:14 PM CDT) [facility] Free T4 1.07 0.90 - 1.70 ng/dL Comment:Testing performed by : [address], [address] Blood 01/29/2025 2:14 PM CDT 01/29/2025 2:14 PM CDT Helen Oseguera MD LAB BLOOD ORDERABLES Final Result Performing Organization Address [facility] de Phone Number TRACIE HENDRIX ([place]) [address] [place] [address] * (ABNORMAL) Hemoglobin A1c (01/29/2025 2:14 PM CDT) [facility] Hgb A1C 5.8(H) 4.0 - 5.6 % Comment:Testing performed by : [address] [address] Estimated Average Glucose 120 mg/dL TRACIE HENDRIX ([place]) Comment: The ADA recommends reporting an estimated Average Glucose (eAG) with all Hemoglobin A1c results using the equation derived from a study of 507 normal and diabetic adults. Minority populations were underrepresented and children were not included. (Diabetes Care 31:4740-9771, 2008). The eAG is not equivalent to a fasting glucose. Testing performed by: [address] [address] Blood 01/29/2025 2:14 PM CDT 01/29/2025 2:16 PM CDT us Helen Oseguera MD LAB BLOOD ORDERABLES Final Result Performing Organization Address [facility] Co de Phone Number TRACIE HENDRIX ([place]) [address] [place] [address] * (ABNORMAL) Lipid panel (01/29/2025 2:14 PM CDT) Cholesterol 179 30 - 199 mg/dL Comment: Interpretive Data Ages < or = 19 years Acceptable: <170 mg/dL Borderline high: 170-199 mg/dL High: >or= 200 mg/dL Ages > or = 20 years Desirable: <200 mg/dL Borderline high: 200-239 mg/dL High: >or= 240 mg/dL Literature References: 1. Expert Panel on Integrated Guidelines for Cardiovascular Health and Risk Reduction in Children and Adolescents. Pediatrics 2011;128:S213 2. NCEP Expert Panel. Circulation 2004;110:227 Current Interpretive Data was last revised on 2018. Testing performed by: [facility], [address] [place] [address]., [address] Triglycerides 177(H) <=149 mg/dL TRACIE HENDRIX ([place]) Comment: Interpretive Data Ages < or = 9 years Acceptable: <75 mg/dL Borderline high: 75-99 mg/dL High: >or= 100 mg/dL Ages 10 to 20 years Acceptable: <90 mg/dL Borderline high: 90-129 mg/dL High: >or= 130 mg/dL Ages > or = 20 years Desirable: <150 mg/dL Borderline high: 150-199 mg/dL High: 200-499 mg/dL Very high: >or= 499 mg/dL Literature References: 1. Expert Panel on Integrated Guidelines for Cardiovascular Health and Risk Reduction in Children and Adolescents. Pediatrics 2011;128:S213 2. NCEP Expert Panel. Circulation 2004;110:227 Current Interpretive Data was last revised on 2018. Testing performed by: [facility], [address] [place] [address]., [address] HDL 40 >=40 mg/dL [facility] ([place]) Comment: Interpretive Data Ages < or = 19 years Acceptable: >45 mg/dL Borderline low: 40-45 mg/dL Low: <40 mg/dL Ages > or = 20 years Desirable: >or= 60 mg/dL Low: <40 mg/dL Literature References: 1. Expert Panel on Integrated Guidelines for Cardiovascular Health and Risk Reduction in Children and Adolescents. Pediatrics 2011;128:S213 2. NCEP Expert Panel. Circulation 2004;110:227 Current Interpretive Data was last revised on 2018. Testing performed by: [facility], [address] [place] [address]., [address] LDL, calculated 108 <=129 mg/dL TRACIE HENDRIX ([place]) Comment: Interpretive Data Ages < or = 19 years Acceptable: <110 mg/dL Borderline high: 110-129 mg/dL High: >or= 130 mg/dL Ages > or = 20 years Optimal: <100 mg/dL Near optimal: 100-129 mg/dL Borderline high: 130-159 mg/dL High: >160 mg/dL Calculated using the Janak LDL-C estimating equation. This equation was implemented on 2024. Prior to this date LDL-C was estimated using the Friedewald equation. Literature References: 1. Expert Panel on Integrated Guidelines for Cardiovascular Health and Risk Reduction in Children and Adolescents. Pediatrics 2011;128:S213 2. NCEP Expert Panel. Circulation 2004;110:227 3. Janak Gaona et al. TOMASZ Cardiol. 2019September 12;5(5):540-548. doi: 10.1001/jamacardio.2020.0013 Current Interpretive Data was last revised on 2024. Testing performed by: [address] [address] Non-HDL Cholesterol 139 mg/dL TRACIE HENDRIX ([place]) Comment: Interpretive Data Ages < or = 19 years Acceptable: <120 mg/dL Borderline high: 120-144 mg/dL High: >145 mg/dL Ages > or = 20 years When triglycerides are >200 mg/dL, Non-HDL cholesterol is a secondary target of therapy with treatment goals that are 30 mg/dL greater than the LDL cholesterol target. Literature References: 1. Expert Panel on Integrated Guidelines for Cardiovascular Health and Risk Reduction in Children and Adolescents. Pediatrics 2011;128:S213 2. NCEP Expert Panel. Circulation 2004;110:227 Current Interpretive Data was last revised on 2018. Testing performed by: [facility], [address] [place] [address]., [address] Chol/HDL ratio 4 RADHA HENDRIX ([place]) Comment:Testing performed by : [address] [address] Blood 01/29/2025 2:14 PM CDT 01/29/2025 2:14 PM CDT us Helen Oseguera MD LAB BLOOD ORDERABLES Final Result TRACIE HENDRIX ([place]) 1 [facility] Department [place] [address] * (ABNORMAL) Comprehensive metabolic panel (01/29/2025 2:14 PM CDT) Sodium 139 135 - 145 mmol/L Comment:Testing performed by : [facility], [address] [place] [address]., [address] Potassium, pl 2.9(L) 3.3 - 4.9 mmol/L [facility] ([place]) Comment:Testing performed by : [facility], [address] [place] [address]., [address] Chloride 97 97 - 110 mmol/L [facility] ([place]) Comment:Testing performed by : [address], [address] CO2 30 22 - 32 mmol/L [facility] ([place]) Comment:Testing performed by : [address] [address] Anion gap 12 2 - 15 mmol/L [facility] ([place]) Comment:Testing performed by : [address] [address] BUN 14 6 - 25 mg/dL [facility] ([place]) Comment:Testing performed by : [address], [address] Creatinine 0.77 0.60 - 1.10 mg/dL [facility] ([place]) Comment:Testing performed by : [address], [address] Glucose 85 70 - 199 mg/dL [facility] ([place]) Comment: Interpretive Data Fasting glucose >/= 126 mg/dl is diagnostic for diabetes. Fasting is defined as no caloric intake for at least 8 hours. Fasting glucose between 100 mg/dl to 125 mg/dl is diagnostic of prediabetes. In a patient with classic symptoms of hyperglycemia or hyperglycemic crisis, a random glucose >/= 200 mg/dl is diagnostic for diabetes. In the absence of unequivocal hyperglycemia, results should be confirmed by repeat testing. The classification and Diagnosis of Diabetes Diabetes Care 202; 46: S19-S40. Current interpretive data was last revised 2022. Testing performed by: [facility], [address] [place] [address]., [address] Calcium 9.7 8.5 - 10.3 mg/dL [facility] ([place]) Comment:Testing performed by : [facility], [address] [place] [address], [address] Bilirubin, total 1.1 0.1 - 1.2 mg/dL [facility] ([place]) Comment:Testing performed by : [address], [address] Protein, pl 7.3 6.5 - 8.5 g/dL [facility] ([place]) Comment:Testing performed by : [address], [address] Albumin 4.3 3.5 - 5.0 g/dL [facility] ([place]) Comment:Testing performed by : [facility], [address] [place] [address], [address] Alk phos 116 40 - 130 Units/L [facility] ([place]) Comment:Testing performed by : [address], [address] ALT 14 7 - 45 Units/L [facility] ([place]) Comment:Testing performed by : [address], [address] AST 37 10 - 45 Units/L [facility] ([place]) Comment:Testing performed by : [address], [address] Blood 01/29/2025 2:14 PM CDT 01/29/2025 2:14 PM CDT us Helen Oseguera MD LAB BLOOD ORDERABLES Final Result [facility] ([place]) 1 [facility] Department [place] [address] from Last 3 Months Insurance MEDICARE ADVANTAGE MEDICARE ADVANTAGE MEDICARE AETNA MEDICARE Care Teams Joint Finisher Relationship Specialty Start Date End Date Ashish Paulino MD [address] [place] [id number] PCP - General Internal Medicine 02/18/23 Ashish Paulino MD [address] [place] [address] 02/18/23
--- OUTSIDE RECORDS SUMMARY | 2025-02-17 13:58 | XMS_ITS | Clinical Summary ---
Author Organization [facility] Saida Ortegajenna Address [address] [place] [address] Care Team Providers Care Gear Hobber Set Up Operator Name Role Phone Chris Oseguera MD Primary Care Provider Allergies Active Allergy Reactions Criticality Noted Date [...] Take 50 mcg by mouth daily. Active potassium CHLORIDE (K-TAB) 20 mEq Extended Release tablet Take 10 mEq by mouth one time only. 02/05/2025 02/18/20 25 Active omega-3 fatty acids-fish oil 300-1,000 mg Capsule Take 2 Capsules by mouth 2 times daily. Active Active Problems No known active problems Encounters Date Type Department Care Team Description 02/17/2025 1:00 PM CDT Office Visit [facility] Oncology and Hematology - [facility] Tarsha Oro [address] [address] Joe Bland MD Essential thrombocytosis (Primary Dx) 02/04/2025 External Device Data STL ABSTRACTION Provider, Abstract 01/28/2025 External Device Data STL ABSTRACTION Provider, Abstract 01/21/2025 External Device Data STL ABSTRACTION Provider, Abstract 01/01/2025 External Device Data STL ABSTRACTION Provider, Abstract 12/17/2024 External Device Data STL ABSTRACTION Provider, Abstract 11/27/2024 External Device Data STL ABSTRACTION Provider, Abstract 11/26/2024 External Device Data STL ABSTRACTION Provider, Abstract from Last 3 Months Family History Medical [...] on file 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 Gender Identity Not on file Sexual Orientation [...] oz) 02/17/2025 1:35 P M CDT Height 162.6 cm (5' 4) 07/29/2024 1:41 PM CDT Body Mass Index 27.74 07/29/2024 1:41 PM CDT Plan of Treatment Health Maintenance Due Date Last Done Comments DTAP/TDAP/TD VACCINES (1 - Tdap) 1967 OSTEOPOROSIS SCREENING 2013 PNEUMOCOCCAL VACCINE 50+ YEA RS (2 of 2 - PPSV23, PCV20, or PCV21) 04/21/2021 02/24/2021 RSV VACCINE (60+ or ) (1 - 1-dose 75+ series) 2023 [place] Prev entative Visit/Annual Wellness Visit 05/15/2024 INFLUENZA VACCINE (#1) 2024 ZOSTER VACCINE Completed 12/27/2023, 07/03/2023 Insurance AET[employer] PPO MCR Care Teams Gear Hobber Set Up Operator Relationship Specialty Start Date End Date Chris Oseguera MD [address] [place] [address] [place] [phone] PCP - General Internal Medicine 08/14/24
== END 2025-02-17 13:04 | disposition home or self-care (01) ==
LOC: ANHLAB 13:04
PROVIDERS: Visit Provider Internal Medicine Hematology & Oncology
DX: D47.3 Essential (hemorrhagic) thrombocythemia (principal)
CPT/HCPCS: 36415; 80047; 85025